=== PATIENT | male | born 1965 | race Caucasian/White ===

== ENCOUNTER 2024-11-18 14:56 | Emergency (ER) | payer MEDICAID, SELFPAY ==
[2024-11-18 15:09] VITALS: BP 154/86; PULSE 71; RESP 20; TEMP 36.7; O2SAT 95; BMI 31.8
--- NOTE | 2024-11-18 15:23 | PD.EDEAR ---
ED Ear RME/HPI General Chief complaint: Ear Stated complaint: Bug in left ear Time Seen by Provider: 11/18/24 15:17 Source: patient Arrival date/time: 11/18/24 14:56 59-year-old male with a history of type 2 diabetes, hyperlipidemia presents to the emergency room with a chief complaint of an insect in the left ear. Mode of arrival: ambulatory Limitations: no limitations Related Data Home Medications ?Medication ?Instructions ?Recorded ?Confirmed gemfibrozil 600 mg tablet (Lopid) 600 mg PO BID ##0 07/01/11 05/05/23 metformin 1,000 mg tablet 1,000 mg PO BID #0 tabs 06/08/16 05/05/23 (Glucophage) albuterol sulfate 90 mcg/actuation 2 puff inhalation Q4H PRN 05/05/23 05/05/23 aerosol inhaler Shortness Of Breath Or Wheezing empagliflozin 25 mg tablet 25 mg PO QDAY 05/05/23 05/05/23 (Jardiance) hydrocodone 10 mg-acetaminophen 1 tab PO TID PRN Pain 05/05/23 05/05/23 325 mg tablet losartan 50 mg tablet 50 mg PO QDAY 05/05/23 05/05/23 omeprazole 40 mg capsule,delayed 40 mg PO QDAY 05/05/23 05/05/23 release sitagliptin phosphate 100 mg 100 mg PO QDAY 05/05/23 05/05/23 tablet (Januvia) Previous Rx's ?Medication ?Instructions ?Recorded ofloxacin 0.3 % ear drops 10 drp otic (ear) QDAY 7 days #10 11/18/24 mL Allergies Allergy/AdvReac Type Severity Reaction Status Date / Time Penicillins Allergy Intermediate Hives Verified 11/18/24 15:00 Review of Systems Review of Systems Systems Reviewed: All systems reviewed, normal except as documented Constitutional Constitutional: Reports system reviewed and no additional complaints, except as documented, Denies fatigue, Denies fever(s), Denies headache(s) and Denies weakness Eyes Eyes: Reports system reviewed and no additional complaints, except as documented, Denies blurry vision and Denies change in vision ENT Ears, Nose, Mouth, and Throat: Reports system reviewed and no additional complaints, except as documented, Denies otalgia, Denies headache(s), Denies nasal congestion, Denies throat swelling and Denies vertigo Cardiovascular Cardiovascular: Reports system reviewed and no additional complaints, except as documented, Denies chest pain, Denies dyspnea and Denies dyspnea on exertion Respiratory Respiratory: Reports system reviewed and no additional complaints, except as documented, Denies chest congestion, Denies cough, Denies dyspnea, Denies dyspnea on exertion and Denies wheezing Gastrointestinal Gastrointestinal: Reports system reviewed and no additional complaints, except as documented, Denies abdominal pain, Denies cramping, Denies nausea and Denies vomiting Genitourinary Genitourinary: Reports system reviewed and no additional complaints, except as documented, Denies dysuria and Denies hematuria Musculoskeletal Musculoskeletal: Reports system reviewed and no additional complaints, except as documented and Denies back pain Integumentary/Breasts Skin/Breast: Reports system reviewed and no additional complaints, except as documented and Denies wounds Neurologic Neurologic: Reports system reviewed and no additional complaints, except as documented, Denies confusion, Denies headache(s), Denies lack of coordination, Denies vertigo and Denies weakness Psychiatric Psychiatric: Reports system reviewed and no additional complaints, except as documented, Denies anxiety, Denies confusion, Denies depression, Denies paranoia, Denies suicidal ideation and Denies tactile hallucinations Endocrine Endocrine: Reports system reviewed and no additional complaints, except as documented and Denies fatigue Hematologic/Lymphatic Hematologic/Lymphatic: Reports system reviewed and no additional complaints, except as documented and Denies lymphadenopathy Allergic/Immunologic Allergic/Immunologic: Reports system reviewed and no additional complaints, except as documented, Denies throat swelling, Denies urticaria and Denies wheezing Past Medical History Past Medical History NEUROLOGIC: Negative Neurological Disorders or Seizures CARDIAC: Positive Cardiac Disorders, Angina, Hypercholesterolemia and Hypertension; Negative Congestive Heart Failure RESPIRATORY: Negative Chronic Obstructive Pulmonary Disease (COPD) GASTROINTESTINAL: Positive Gastrointestinal Disorders and Gastroesophageal Reflux Disease; Negative Hepatitis or Colorectal Cancer GENITOURINARY: Negative Genitourinary Disorders, Renal Disease or Prostate Cancer REPRODUCTIVE: Negative Testicular Cancer MUSCULOSKELETAL: Positive Musculoskeletal Disorders, Arthritis and Degenerative Joint Disease; Negative Bone Cancer ENT: 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) ENDOCRINE: Positive Endocrine Disorders and Diabetes Mellitus Type 2; Negative Diabetes Mellitus Type 1 HEMATOLOGIC: Negative Blood Disorders OTHER HISTORY: Positive Chicken Pox; Negative Hospitalization, Autoimmune Disease, Down Syndrome, Developmental Delay, Shingles, Falls, Blood Transfusions, Blood Transfusion Reaction, Anesthesia Reactions, MRSA, VRSA, Vancomycin-Resistant Enterococci, Clostridium Difficile, Colorectal Cancer, Lung Cancer, Prostate Cancer or Testicular Cancer Family History FAMILY HISTORY: Positive Family Cancer; Negative Family Psychiatric Problems, Family Respiratory Disorders, Family Cardiac Disorders, Family Gastrointestinal Problems, Family Surgery or Family Anesthesia Reaction Surgical History SURGICAL: Positive Abdominal Surgery; Negative Cardiac Surgery, Endocrine Surgery, Ear Surgery, Nephrectomy, Transurethral Resection, Neurologic Surgery, Brain Shunt or Vasectomy Social History SMOKING STATUS: Current every day smoker SUBSTANCE USE: marijuana ED Exam General Limitations: Present no limitations General appearance: Present alert and in no apparent distress Head Head exam: Present atraumatic Eye Eye exam: Present normal appearance, PERRL and EOMI ENT ENT exam: Present normal exam, normal oropharynx and mucous membranes moist Expanded ENT Exam TM/Canal exam: Left TM: foreign body (There is a cockroach in his left ear) Neck Neck exam: Present normal inspection, full ROM and trachea midline Chest Chest inspection: Present normal inspection and symmetric chest wall rise Respiratory Respiratory exam: Present normal lung sounds bilaterally Cardiovascular Cardiovascular exam: Present regular rate, normal rhythm and normal heart sounds Abdominal Exam Abdominal exam: Present soft and normal bowel sounds Extremities Exam Extremities exam: Present normal inspection and full ROM Back Exam Back exam: Present normal inspection and full ROM Neurological Exam Neurological exam: Present alert, oriented X3 and CN II-XII intact Psychiatric Psychiatric exam: Present normal affect and normal mood Skin Skin exam: Present warm, dry, intact and normal color Course Quality Measures none Vital Signs Vital signs: Vital Signs Temperature 98.1 F 11/18/24 15:09 Pulse Rate 71 11/18/24 15:09 Respiratory Rate 20 11/18/24 15:09 Blood Pressure 154/86 H 11/18/24 15:09 Pulse Oximetry (%) 95 11/18/24 15:09 Oxygen Delivery Method Room Air 11/18/24 15:09 O2 saturation 95% within normal limit Ear MDM Narrative MDM Narrative:: 59-year-old male with a history of type 2 diabetes, hyperlipidemia presents to the emergency room with a chief complaint of an insect in the left ear. Patient is hemodynamically stable and in no apparent distress Physical examination shows a cockroach inside the left ear canal. It is pushed up against the tympanic membrane. Patient states he drowned the insect at home with peroxide and was attempting to remove it with a Q-tip that was unsuccessful and causing him a lot of pain. Multiple attempts were used to try to remove this insect without causing the patient much pain. The ear was irrigated and unsuccessful. Small alligator forceps were used to try and grab the insect and remove but the patient was having tenderness to the external ear canal which made the process very difficult. Lidocaine was used to numb up the ear and another attempt was used with alligator forceps which was unsuccessful. Patient was educated that he needs to follow-up with his primary care provider and get a referral to an ENT specialist. Patient was educated return to the emergency room for any evidence of worsening signs or symptoms Patient data External records reviewed:: [facility] previous records Clinical information provided by:: patient Social determinants that could affect healthcare access:: none Patient has the following chronic illnesses:: No chronic illness How is presenting disease/condition affected by chronic disease/condition?: no chronic disease Evaluation data The following diagnostics were reviewed and interpreted by me:: lab results and radiology exam(s) Lab and/or radiology exams considered but not ordered:: Labs and radiology exams considered and ordered Interpretation Summary: N/A Medications / Prescriptions Medications or Prescriptions considered but not ordered:: Rx given Medication administrations:: Rx given Consultations Consultation(s) initiated? (list below): No Diagnosis Ear Differential Diagnosis: otitis externa, otitis media, foreign body in ear and cerumen impaction Most likely diagnosis given after review of the tests above:: Foreign body in ear Admission Indicated Admission indicated?: not indicated Admission Request Was there a request for admission?: No Disposition Plan Disposition Plan: Discharge Discharge Attestation Discharge Attestation: The patient and all family members were given an opportunity to ask questions and understood the discharge instructions. Discharge instructions specifically effects, indications for sooner follow up or return to the emergency department, and the expected course of current diagnosis. Patient condition: Stable Discharge Plan Plan Patient Disposition: HOME (Self Care) Disposition Comment: Stable Prescriptions/Referrals Prescriptions/Med Rec: New ofloxacin 0.3 % drops 10 drp otic (ear) QDAY 7 Days Qty: 10 0RF No Action gemfibrozil [Lopid] 600 MG tablet 600 mg PO BID Qty: 0 metformin [Glucophage] 1,000 MG tablet 1,000 mg PO BID Qty: 0 losartan 50 mg tablet 50 mg PO QDAY Patient Comments: TAKE ONE TABLET BY MOUTH EVERY DAY FOR BLOOD PRESSURE hydrocodone-acetaminophen 10-325 mg tablet 1 tab PO TID PRN (Reason: Pain) Patient Comments: TAKE ONE TABLET BY MOUTH THREE TIMES DAILY NEEDED FOR PAIN omeprazole 40 mg capsule,delayed release(DR/EC) 40 mg PO QDAY Patient Comments: TAKE ONE CAPSULE BY MOUTH EVERY MORNING 30 MINUTES BEFORE BREAKFAST GASTRIC ACIDITY AND HEARTBURN albuterol sulfate 90 mcg/actuation HFA aerosol inhaler 2 puff INHALATION Q4H PRN (Reason: Shortness Of Breath Or Wheezing) Patient Comments: INHALE TWO PUFFS BY MOUTH EVERY 4 HOURS NEEDED FOR BREATHING AND SHORTNESS OF BREATH Januvia 100 mg tablet 100 mg PO QDAY Patient Comments: TAKE ONE TABLET BY MOUTH EVERY DAY FOR DIABETES Jardiance 25 mg tablet 25 mg PO QDAY Patient Comments: TAKE ONE TABLET BY MOUTH EVERY DAY FOR DIABETES Problem List Clinical Impression: Acute foreign body of left ear, Otitis externa Patient/Caregiver Discharge Instructions Education Materials: ED EAR CANAL Foreign Body, ED External Ear Infection (Adult) Additional Instructions: Please follow-up with your primary care provider in the next 24 to 48 hours. You have a insect in your left ear. It is pushed up very close to your tympanic membrane. Multiple attempts were tried to remove the insect that were unsuccessful. Please follow-up with your primary care provider as a referral to an ENT will be needed to remove this. I sent over antibiotics to your pharmacy please pick them up and take them as indicated to prevent any infection in your ear For any evidence of worsening signs or symptoms return to the emergency room immediately Print Language: Norwegian Stand Alone Forms: Monica Award Info., Patient Portal Info Letter PA/ALBERTO Supervising Physician PA/ALBERTO Supervising Physician: Dr. Mosher
== END 2024-11-18 17:13 | disposition home or self-care (01) ==
PROVIDERS: Emergency Provider Emergency Medicine
DX: T16.2XXA Foreign body in left ear, initial encounter (principal); H60.92 Unspecified otitis externa, left ear; W44.F4XA Insect entering into or through a natural orifice, initial encounter; E11.9 Type 2 diabetes mellitus without complications; E78.5 Hyperlipidemia, unspecified; F17.210 Nicotine dependence, cigarettes, uncomplicated; Y92.009 Unspecified place in unspecified non-institutional (private) residence as the place of occurrence of the external cause
CPT/HCPCS: 99283

== ENCOUNTER 2024-12-01 08:33 | Emergency (ER) | payer MEDICAID, SELFPAY ==
[2024-12-01 08:47] VITALS: BP 143/84; PULSE 72; RESP 18; TEMP 36.9; O2SAT 95
--- NOTE | 2024-12-01 08:53 | PD.EDADULT ---
ED General RME/HPI General Chief complaint: Ear Stated complaint: BUG IN EAR Time Seen by Provider: 12/01/24 08:52 Arrival date/time: 12/01/24 08:33 CC: Foreign object sensation in left ear canal HPI patient was seen here 1 week ago for cockroach in his ear. ER staff were unable to get the insect out of the ear, patient then went saw PCP who failed to get out of the ear and has a follow-up with nuclear monitoring technician in 2 weeks however the patient is annoyed that it is still in there and wants to try again. Patient denies fever chills loss of hearing nausea vomiting headache or generalized weakness. Related Data Home Medications ?Medication ?Instructions ?Recorded ?Confirmed gemfibrozil 600 mg tablet (Lopid) 600 mg PO BID ##0 07/01/11 05/05/23 metformin 1,000 mg tablet 1,000 mg PO BID #0 tabs 06/08/16 05/05/23 (Glucophage) albuterol sulfate 90 mcg/actuation 2 puff inhalation Q4H PRN 05/05/23 05/05/23 aerosol inhaler Shortness Of Breath Or Wheezing empagliflozin 25 mg tablet 25 mg PO QDAY 05/05/23 05/05/23 (Jardiance) hydrocodone 10 mg-acetaminophen 1 tab PO TID PRN Pain 05/05/23 05/05/23 325 mg tablet losartan 50 mg tablet 50 mg PO QDAY 05/05/23 05/05/23 omeprazole 40 mg capsule,delayed 40 mg PO QDAY 05/05/23 05/05/23 release sitagliptin phosphate 100 mg 100 mg PO QDAY 05/05/23 05/05/23 tablet (Januvia) Allergies Allergy/AdvReac Type Severity Reaction Status Date / Time Penicillins Allergy Intermediate Hives Verified 12/01/24 08:36 Review of Systems Review of Systems Narrative Review of Systems: GEN: No fever, no chills, no weight loss EYES: No discharge, no visual changes, no pain HEENT: No ear pain, no congestion, no sore throat PULM: No shortness of breath, no cough, no congestion CV: No chest pain, no dyspnea on exertion, no palpitations GI: No nausea, no vomiting, no diarrhea, no pain, no constipation : No frequency, no urgency, no dysuria MUSC/SKEL: No joint pain, no back pain SKIN: No rash PSYCH: No hallucinations, no depression HEME/LYMPH: No easy bleeding or bruising tendencies NEURO: No weakness, no headache Past Medical History Past Medical History NEUROLOGIC: Negative Neurological Disorders or Seizures CARDIAC: Positive Cardiac Disorders, Angina, Hypercholesterolemia and Hypertension; Negative Congestive Heart Failure RESPIRATORY: Negative Chronic Obstructive Pulmonary Disease (COPD) GASTROINTESTINAL: Positive Gastrointestinal Disorders and Gastroesophageal Reflux Disease; Negative Hepatitis or Colorectal Cancer GENITOURINARY: Negative Genitourinary Disorders, Renal Disease or Prostate Cancer REPRODUCTIVE: Negative Testicular Cancer MUSCULOSKELETAL: Positive Musculoskeletal Disorders, Arthritis and Degenerative Joint Disease; Negative Bone Cancer ENT: 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) ENDOCRINE: Positive Endocrine Disorders and Diabetes Mellitus Type 2; Negative Diabetes Mellitus Type 1 HEMATOLOGIC: Negative Blood Disorders OTHER HISTORY: Positive Chicken Pox; Negative Hospitalization, Autoimmune Disease, Down Syndrome, Developmental Delay, Shingles, Falls, Blood Transfusions, Blood Transfusion Reaction, Anesthesia Reactions, MRSA, VRSA, Vancomycin-Resistant Enterococci, Clostridium Difficile, Colorectal Cancer, Lung Cancer, Prostate Cancer or Testicular Cancer Family History FAMILY HISTORY: Positive Family Cancer; Negative Family Psychiatric Problems, Family Respiratory Disorders, Family Cardiac Disorders, Family Gastrointestinal Problems, Family Surgery or Family Anesthesia Reaction Surgical History SURGICAL: Positive Abdominal Surgery; Negative Cardiac Surgery, Endocrine Surgery, Ear Surgery, Nephrectomy, Transurethral Resection, Neurologic Surgery, Brain Shunt or Vasectomy Social History SMOKING STATUS: Current every day smoker SUBSTANCE USE: marijuana ED Exam Narrative Physical exam: [General: In mild discomfort but not in any acute distress Head normocephalic HEENT: Ears: Right EAC is clean dry and intact, TM is visible no erythema or edema. Left EAC has foreign object versus cyst back in the EAC, TM is not visible, there is no surrounding erythema or edema in the EAC canal, no exudate or discharge. Blast mass obscuring the TM. All other subsystems of HEENT are within acceptable limits Neck is supple nontender Chest equal chest rise nontender to palpation Respiratory: Clear to auscultation no wheezes crackles or rubs CV: Rate rhythm is regular no murmurs rubs or clicks Abdomen is distended secondary to body habitus soft nontender no masses positive bowel sounds all 4 quadrants Back: No CVA tenderness no spinous process tenderness from cervical spine thoracic and lumbar spine Skin: Intact no petechiae rash induration ulceration or crepitus Extremities: Moving all extremity against resistance cap refill less than 2 seconds neurosensory intact Neuro: Awake alert oriented x3 Glascow coma 15 no focal deficits] Course Quality Measures none Orders Category Date Time Status Miscellaneous Nursing Order NOW Care 12/01/24 08:53 Active Vital Signs Vital signs: Vital Signs Temperature 98.5 F 12/01/24 08:47 Pulse Rate 72 12/01/24 08:47 Respiratory Rate 18 12/01/24 08:47 Blood Pressure 143/84 H 12/01/24 08:47 Pulse Oximetry (%) 95 12/01/24 08:47 Oxygen Delivery Method Room Air 12/01/24 08:47 MDM Patient data External records reviewed:: [facility] previous records Clinical information provided by:: patient Social determinants that could affect healthcare access:: none Patient has the following chronic illnesses:: None How is presenting disease/condition affected by chronic disease/condition?: uneffected by Evaluation data The following diagnostics were reviewed and interpreted by me:: other (specify) (None) Lab and/or radiology exams considered but not ordered:: None Interpretation Summary: After minimal flushing with warm water did insect was flushed from the EAC. Reexamination of the EAC show is clear, TM is not erythematous edematous there is no opening or rupture of the TM. Patient feels immediate relief. Medications Medications considered but not ordered:: None Medication administrations:: None Consultations Consultation(s) initiated? (list below): No Diagnosis Differential Diagnosis ED Complaint MDM: Ruptured TM otitis media otitis externa Most likely diagnosis given after review of the tests above:: Insect in the EAC Admission Indicated Admission indicated?: not indicated Explain why admission is indicated or not indicated:: Stable for outpatient follow-up Admission Request Was there a request for admission?: No Disposition Plan Disposition Plan: Discharge Discharge Attestation Discharge Attestation: The patient and all family members were given an opportunity to ask questions and understood the discharge instructions. Discharge instructions specifically effects, indications for sooner follow up or return to the emergency department, and the expected course of current diagnosis. Patient condition: Stable Medical Decision Making Differential Diagnosis Differential Diagnosis: Ruptured TM otitis media otitis externa Discharge Plan Plan Patient Disposition: HOME (Self Care) Patient condition on transfer: Stable Prescriptions/Referrals Prescriptions/Med Rec: No Action gemfibrozil [Lopid] 600 MG tablet 600 mg PO BID Qty: 0 metformin [Glucophage] 1,000 MG tablet 1,000 mg PO BID Qty: 0 losartan 50 mg tablet 50 mg PO QDAY Patient Comments: TAKE ONE TABLET BY MOUTH EVERY DAY FOR BLOOD PRESSURE hydrocodone-acetaminophen 10-325 mg tablet 1 tab PO TID PRN (Reason: Pain) Patient Comments: TAKE ONE TABLET BY MOUTH THREE TIMES DAILY NEEDED FOR PAIN omeprazole 40 mg capsule,delayed release(DR/EC) 40 mg PO QDAY Patient Comments: TAKE ONE CAPSULE BY MOUTH EVERY MORNING 30 MINUTES BEFORE BREAKFAST GASTRIC ACIDITY AND HEARTBURN albuterol sulfate 90 mcg/actuation HFA aerosol inhaler 2 puff INHALATION Q4H PRN (Reason: Shortness Of Breath Or Wheezing) Patient Comments: INHALE TWO PUFFS BY MOUTH EVERY 4 HOURS NEEDED FOR BREATHING AND SHORTNESS OF BREATH Januvia 100 mg tablet 100 mg PO QDAY Patient Comments: TAKE ONE TABLET BY MOUTH EVERY DAY FOR DIABETES Jardiance 25 mg tablet 25 mg PO QDAY Patient Comments: TAKE ONE TABLET BY MOUTH EVERY DAY FOR DIABETES Problem List Clinical Impression: Foreign body in ear Patient/Caregiver Discharge Instructions Education Materials: ED EAR CANAL Foreign Body Additional Instructions: Keep ear canals clean and dry follow-up with your primary care provider if there is worsening of symptoms return the emergency room for reevaluation. Print Language: Macanese Stand Alone Forms: Monica Award Info., Work/School Release, Patient Portal Info Letter PA/SENIOR MERCHANDISER Supervising Physician PA/SENIOR MERCHANDISER Supervising Physician: Gerardo Berrios ENP
== END 2024-12-01 09:44 | disposition home or self-care (01) ==
LOC: SERX 09:36
PROVIDERS: Emergency Provider Emergency Medicine
DX: T16.2XXA Foreign body in left ear, initial encounter (principal)
CPT/HCPCS: 69200; 99283

== ENCOUNTER 2025-05-14 14:16 | Emergency (ER) | payer MEDICAID, SELFPAY ==
[2025-05-14 14:18] VITALS: BMI 32.1
[2025-05-14 14:33] VITALS: BP 146/84; PULSE 74; RESP 19; TEMP 36.7; O2SAT 95
--- NOTE | 2025-05-14 15:03 | XR_ITS ---
Examination: CT abdomen with intravenous contrast CT pelvis with intravenous contrast 2-D coronal reconstructions 2-D sagittal reconstructions Date and time of exam:May 14, 2025, 1609 hrs., Comparison September 05, 2022 Indications: Constipation abdominal pain and bloating beginning 4 days ago.. CTDI: vol (mGy) 11.4. DLP: (mGycm) 682. Technique: Multiple axial sections of the abdomen and pelvis have been obtained. 64 slice high-resolution scanner used. 3 mm axial sections have been obtained, post intravenous injection 60 cc [id number]. 2-D sagittal, coronal reconstructions obtained. Low dose protocols were performed. One or more of the following dose reduction techniques were used; automated exposure control, adjustment of the mA and/or KV according to patient size, use of iterative reconstruction technique. Findings: Liver is irregular in contour Fatty infiltration throughout the liver. Significant hepatosplenomegaly. Absent gallbladder. No extrahepatic biliary tract dilatation. No pancreatic mass. No renal or ureteral calculi, no hydronephrosis. Heavy abdominal aortic calcification no aneurysmal dilatation. Normal appendix. No bowel obstruction. Abundant stool in the colon especially rectosigmoid, no diverticulitis or bowel obstruction Normal seminal vesicles Transverse prostate dimension 5.1 cm. Axial image 209 demonstrates 16 mm enhancing nodule anterior right prostate Urinary bladder is intact Moderate osteopenia Impression: Significant hepatosplenomegaly, primary hepatocellular disease Constipation, abundant stool throughout the colon especially rectosigmoid. Normal appendix Prostatomegaly, transverse dimension 5.1 cm 16 mm enhancing nodule anterior right prostate, recommend correlation with PSA and follow-up transrectal prostate sonography
--- NOTE | 2025-05-14 15:20 | PD.EDRME ---
Rapid Medical Screening Exam RME Arrival date/time: 05/14/25 14:16 Chief Complaint: Abdominal Pain Time Seen by Provider: 05/14/25 15:03 Vital signs: Vital Signs Temperature 98.0 F 05/14/25 14:33 Pulse Rate 74 05/14/25 14:33 Respiratory Rate 19 05/14/25 14:33 Blood Pressure 146/84 H 05/14/25 14:33 Pulse Oximetry (%) 95 05/14/25 14:33 Oxygen Delivery Method Room Air 05/14/25 14:33 Vital signs reviewed by provider: Yes RME Narrative: Patient is a 60-year-old male with medical history notable for chronic pain, hypertension, diabetes, GERD this in the emergency department with concerns for abdominal distention for the last 3 days, and decreased bowel movements. Patient has had multiple surgeries to his belly, is passing gas usually is regular however has not had a significant bowel movement for the last few days. Patient states that every time he drinks water he feels nauseous. Denies fevers, dysuria melena hematochezia hematuria recent travel, sick contacts. Denies drugs and alcohol. Patient does smoke.
--- NOTE | 2025-05-14 15:31 | EDNOTE_ITS ---
ED Abdominal Pain RME/HPI General Chief Complaint: Abdominal Pain Stated complaint: ABD PAIN/INDIGESTON X 4 DAYS, SENT BY LENA Time seen by provider: 05/14/25 15:03 Arrival date/time: 05/14/25 14:16 Limitations: no limitations RME / HPI RME / HPI narrative: Patient is a 60-year-old male with medical history notable for chronic pain, hypertension, diabetes, GERD this in the emergency department with concerns for abdominal distention for the last 3 days, and decreased bowel movements. Patient has had multiple surgeries to his belly, is passing gas usually is regular however has not had a significant bowel movement for the last few days. Patient states that every time he drinks water he feels nauseous. Denies fevers, dysuria melena hematochezia hematuria recent travel, sick contacts. Denies drugs and alcohol. Patient does smoke. DR. UCHE ROBERTS ED EVALUATION 60 year old male with history of hypertension, diabetes, GERD, s/p cholecystectomy presents to the ED for evaluation of abdominal pain and bloating beginning 4 days ago. States pain is located diffusely but most sever over epigastric region, rating as moderate. Accompanied by nausea and small bowel movements; last bowel movement occurring this am. Last normal bowel movement 4 days ago. States at baseline he drinks Omeprazole which normally provides relief when feeling bloated. However, has noticed in the last 4 days the Omeprazole is not providing relief. Additionally reports he feels the need to belch and attempted to drink soda with no improvement. Denies vomiting or diarrhea. Denies fevers, chills, chest pain, cough, shortness of breath, or other associated symptoms. Related Data Home Medications ?Medication ?Instructions ?Recorded ?Confirmed gemfibrozil 600 mg tablet (Lopid) 600 mg PO BID ##0 05/05/23 metformin 1,000 mg tablet 1,000 mg PO BID #0 tabs 05/2205/05/23 (Glucophage) albuterol sulfate 90 mcg/actuation 2 puff inhalation Q 4H PRN 05/05/23 05/05/23 aerosol inhaler Shortness Of Breath Or Wheez ing empagliflozin 25 mg tablet 25 mg PO QDAY 05/05/2304/21 (Jardiance) hydrocodone 10 mg-acetaminophen 1 tab PO TID PRN Pain 05/05/23 05/05/23 325 mg tablet losartan 50 mg tablet 50 mg PO QDAY 05/05/2305/05 omeprazole 40 mg capsule,delayed 40 mg PO QDAY 3 05/05/23 release sitagliptin phosphate 100 mg 100 mg PO QDAY 05/05/23 0 05/05/23 tablet (Januvia) Allergies Allergy/AdvReac Type Severity Reaction Status Date / Time Penicillins Allergy Severe Hives Verified 05/14/25 14:19 Review of Systems Review of Systems Systems Reviewed: All systems reviewed, normal except as documented Past Medical History Past Medical History CARDIAC: Positive Cardiac Disorders, Angina, Hypercholesterolemia and Hypertension GASTROINTESTINAL: Positive Gastrointestinal Disorders and Gastroesophageal Reflux Disease MUSCULOSKELETAL: Positive Musculoskeletal Disorders, Arthritis and Degenerative Joint Disease ENT: 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) ENDOCRINE: Positive Endocrine Disorders and Diabetes Mellitus Type 2 OTHER HISTORY: Positive Chicken Pox Family History FAMILY HISTORY: Positive Family Cancer Surgical History SURGICAL: Positive Abdominal Surgery Social History SMOKING STATUS: Current every day smoker SUBSTANCE USE: marijuana ED Exam General Limitations: Present no limitations General appearance: Present alert and in no apparent distress Head Head exam: Present atraumatic, normocephalic and normal inspection Eye Eye exam: Present normal appearance, PERRL and EOMI ENT ENT exam: Present normal exam, normal oropharynx and mucous membranes moist Neck Neck exam: Present normal inspection, full ROM and trachea midline Chest Chest inspection: Present normal inspection and symmetric chest wall rise Respiratory Respiratory exam: Present normal lung sounds bilaterally Cardiovascular Cardiovascular exam: Present regular rate, normal rhythm and normal heart sounds Abdominal Exam Abdominal exam: Present soft, distention (with tympany ), tenderness (moderate RUQ TTP with positive Godinez's sign, no rebound, no guarding ) and normal bowel sounds Extremities Exam Extremities exam: Present normal inspection and full ROM Back Exam Back exam: Present normal inspection and full ROM Neurological Exam Neurological exam: Present alert, oriented X3 and CN II-XII intact Psychiatric Psychiatric exam: Present normal affect and normal mood Skin Skin exam: Present warm, dry, intact and normal color Course Quality Measures none Orders Category Date Time Status CT Screening NOW Care 05/14/25 15:04 Active 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9% 500 ml [Ns] 500 ml Med 05/14/25 15:41 Discontinued IV 999 mls/hr Vital Signs Vital signs: Vital Signs Temperature 98.0 F 05/14/25 14:33 Pulse Rate 74 05/14/25 14:33 Respiratory Rate 19 05/14/25 14:33 Blood Pressure 146/84 H 05/14/25 14:33 Pulse Oximetry (%) 95 05/14/25 14:33 Oxygen Delivery Method Room Air 05/14/25 14:33 Pulse ox is 95% on room air which is adequate. Abdominal Pain MDM MDM Narrative MDM Narrative:: Vanessa Sahu am scribing for and in the presence of Dr. Pinedo. Patient data External records reviewed:: [facility] previous records (I reviewed ED visit on 12/01/2024 ) Clinical information provided by:: patient Social determinants that could affect healthcare access:: none Patient has the following chronic illnesses:: hypertension, diabetes, GERD, s/p cholecystectomy in 1990 How is presenting disease/condition affected by chronic disease/condition?: exacerbated by Evaluation data The following diagnostics were reviewed and interpreted by me:: lab results and radiology exam(s) Lab and/or radiology exams considered but not ordered:: None Interpretation Summary: Ordering Physician: Georgiana Murray MD Date of Service: 05/14/25 Procedure(s): CT abdomen pelvis w con Accession Number(s): [id number] cc: Joby Lewis; Farrukh Iyer MD; Georgiana Murray MD~ Examination: CT abdomen with intravenous contrast CT pelvis with intravenous contrast 2-D coronal reconstructions 2-D sagittal reconstructions Date and time of exam:May 14, 2025, 1609 hrs., Comparison September 05, 2022 Indications: Constipation abdominal pain and bloating beginning 4 days ago.. CTDI: vol (mGy) 11.4. DLP: (mGycm) 682. Technique: Multiple axial sections of the abdomen and pelvis have been obtained. 64 slice high-resolution scanner used. 3 mm axial sections have been obtained, post intravenous injection 60 cc [id number]. 2-D sagittal, coronal reconstructions obtained. Low dose protocols were performed. One or more of the following dose reduction techniques were used; automated exposure control, adjustment of the mA and/or KV according to patient size, use of iterative reconstruction technique. Findings: Liver is irregular in contour Fatty infiltration throughout the liver. Significant hepatosplenomegaly. Absent gallbladder. No extrahepatic biliary tract dilatation. No pancreatic mass. No renal or ureteral calculi, no hydronephrosis. Heavy abdominal aortic calcification no aneurysmal dilatation. Normal appendix. No bowel obstruction. Abundant stool in the colon especially rectosigmoid, no diverticulitis or bowel obstruction Normal seminal vesicles Transverse prostate dimension 5.1 cm. Axial image 209 demonstrates 16 mm enhancing nodule anterior right prostate Urinary bladder is intact Moderate osteopenia Impression: Significant hepatosplenomegaly, primary hepatocellular disease Constipation, abundant stool throughout the colon especially rectosigmoid. Normal appendix Prostatomegaly, transverse dimension 5.1 cm 16 mm enhancing nodule anterior right prostate, recommend correlation with PSA and follow-up transrectal prostate sonography Dictated By: Farrukh Iyer MD Signed By: <Electronically signed by Farrukh Iyer MD in OV> 05/14/25 1625 Medications / Prescriptions Medications or Prescriptions considered but not ordered:: None Medication administrations:: Medication Administration History Hydromorphone HCl (Hydromorphone Inj 2 Mg/Ml Vial) 0.5 mg IVP Q30MIN PRN PRN Reason: PAIN Stop: 05/19/25 15:44 Last Admin: 05/14/25 16:23 Dose: 0.5 mg Documented By: GM Discontinued Medications Sodium Chloride (Ns) 500 mls @ 999 mls/hr IV .Q31M ONE Stop: 05/14/25 16:11 Last Infusion: 05/14/25 16:59 Dose: Infused Documented By: Admin: 05/14/25 16:25 Dose: 999 mls/hr Documented By: GM See above Consultations Consultation(s) initiated? (list below): No Diagnosis Differential diagnosis abdominal pain: abdominal pain, constipation and small bowel obstruction Most likely diagnosis given after review of the tests above:: Abdominal pain Constipation Admission Indicated Admission indicated?: not indicated Admission Request Was there a request for admission?: No Disposition Plan Disposition Plan: Discharge Discharge Attestation Discharge Attestation: The patient and all family members were given an opportunity to ask questions and understood the discharge instructions. Discharge instructions specifically effects, indications for sooner follow up or return to the emergency department, and the expected course of current diagnosis. Patient condition: Stable Discharge Plan Plan Patient Disposition: HOME (Self Care) Prescriptions/Referrals Prescriptions/Med Rec: No Action gemfibrozil [Lopid] 600 MG tablet 600 mg PO BID Qty: 0 metformin [Glucophage] 1,000 MG tablet 1,000 mg PO BID Qty: 0 losartan 50 mg tablet 50 mg PO QDAY Patient Comments: TAKE ONE TABLET BY MOUTH EVERY DAY FOR BLOOD PRESSURE hydrocodone-acetaminophen 10-325 mg tablet 1 tab PO TID PRN (Reason: Pain) Patient Comments: TAKE ONE TABLET BY MOUTH THREE TIMES DAILY NEEDED FOR PAIN omeprazole 40 mg capsule,delayed release(DR/EC) 40 mg PO QDAY Patient Comments: TAKE ONE CAPSULE BY MOUTH EVERY MORNING 30 MINUTES BEFORE BREAKFAST GASTRIC ACIDITY AND HEARTBURN albuterol sulfate 90 mcg/actuation HFA aerosol inhaler 2 puff INHALATION Q4H PRN (Reason: Shortness Of Breath Or Wheezing) Patient Comments: INHALE TWO PUFFS BY MOUTH EVERY 4 HOURS NEEDED FOR BREATHING AND SHORTNESS OF BREATH Januvia 100 mg tablet 100 mg PO QDAY Patient Comments: TAKE ONE TABLET BY MOUTH EVERY DAY FOR DIABETES Jardiance 25 mg tablet 25 mg PO QDAY Patient Comments: TAKE ONE TABLET BY MOUTH EVERY DAY FOR DIABETES Referrals: Joby Lewis FNP [Primary Care Provider] - In 1 week Problem List Clinical Impression: Constipation, Abdominal pain Patient/Caregiver Discharge Instructions Education Materials: Eating a High-Fiber Diet, ED Constipation (Adult) Additional Instructions: Follow-up with your primary care doctor in 3 to 5 days for recheck. You can return to the emergency department sooner if symptoms worsen or if you notice any new, concerning issues. Print Language: Citizen Of [place] Stand Alone Forms: Monica [place] Info., Patient Portal Info Letter
[2025-05-14 15:34] VITALS: BP 148/98; PULSE 72; RESP 19; TEMP 37.1; O2SAT 95
[2025-05-14 15:34] LABS: Basophils # (Auto) 0.1 Thou/mm3 (0.0-0.2); Basophils % (Auto) 1 % (0-2.5); Eosinophils # (Auto) 0.3 Thou/mm3 (0.0-0.5); Eosinophils % (Auto) 3 % (0-10); Hematocrit 48.5 % (41.0-53.0); Hemoglobin 17.0 g/dL (13.5-16.0); Immature Granulocytes Auto 0.04 Thou/mm3 (0.00-0.00); Lymphocytes # (Auto) 2.3 Thou/mm3 (1.0-4.8); Lymphocytes % (Auto) 24 % (10-50); Mean Corpuscular HGB Conc 35.1 g/dl (31.0-37.0); Mean Corpuscular Hemoglobin 30.7 pg (25.0-35.0); Mean Corpuscular Volume 88 fL (80-100); Monocytes # (Auto) 0.5 Thou/mm3 (0.0-0.8); Monocytes % (Auto) 5 % (0-12); Neutrophils # (Auto) 6.3 Thou/mm3 (1.8-7.7); Neutrophils % (Auto) 67 % (37-80); Nucleated Red Blood Cell # 0.00 Thou/mm3 (0.00-0.00); Nucleated Red Blood Cell % 0 /100 WBC (0); Platelet Count 257 Thou/mm3 (140-440); RDW Standard Deviation 42.3 fL (35.1-43.9); Red Blood Count 5.54 Miln/mm3 (4.50-5.90); White Blood Count 9.4 Thou/mm3 (3.8-10.6)
--- NOTE | 2025-05-14 15:38 | XR_ITS ---
Examination: Abdomen sonogram, Limited Date and time of exam: May 14, 2025, 1710 hours INDICATIONS: Constipation and bloating beginning 4 days ago. Technique: Real-time campbell scale transabdominal sonographic images of the upper abdomen obtained. Findings: Absent gallbladder. Normal common bile duct 0.4 cm. Pancreatic head 2.6 cm Liver 20.3 cm fatty infiltration irregular contour and no focal liver lesions. Normal hepatopedal portal venous flow. Patent IVC. IMPRESSION: Normal common bile duct. Moderate hepatomegaly, fatty infiltration, primary hepatocellular disease pattern, no focal liver lesions.
[2025-05-14 15:45] VITALS: PULSE 75
[2025-05-14 15:52] LABS: Alanine Aminotransferase 26 U/L (10-49); Albumin, Serum 4.8 gm/dL (3.4-4.8); Albumin/Globulin Ratio 1.8 (1.2-2.2); Alkaline Phosphatase 76 U/L (46-116); Anion Gap 10 (7-16); Aspartate Amino Transferase 15 U/L (0-34); BUN/Creatinine Ratio 18 Ratio (12-20); Bilirubin,Total 0.4 mg/dL (0.3-1.2); Blood Urea Nitrogen 21 mg/dL (9-23); Calcium 10.7 mg/dL (8.3-10.6); Calcium (Corrected) 10.7 mg/dL (8.5-10.1); Carbon Dioxide 24.8 mMol/L (20.0-31.0); Chloride 103 mMol/L (98-107); Creatinine (Component) 1.2 mg/dL (0.6-1.3); Estimated Creatinine Clearance 79.5 mL/min (>60); Globulin 2.7 gm/dL (2.3-3.5); Glucose 323 mg/dL (74-106); Lipase 33 U/L (12-53); Osmolality,Calculated 290 (275-295); Potassium 4.4 mMol/L (3.4-5.1); Sodium 138 mMol/L (136-145); Total Protein 7.5 gm/dL (5.7-8.2); Troponin I < 0.002 ng/mL (0.0-0.045); eGFR > 60 See Note
[2025-05-14] MEDS: HYDROmorphone INJ 2 MG/ML VIAL 0.5 MG IVP (16:23)
[2025-05-14] MEDS: SODIUM CHLORIDE 0.9% 500 ML 500 ML 999 ML IV (16:25)
[2025-05-14 18:32] VITALS: BP 146/94; PULSE 64; RESP 16; TEMP 36.9; O2SAT 96
== END 2025-05-14 18:38 | disposition home or self-care (01) ==
PROVIDERS: Emergency Medicine; Emergency Provider Emergency Medicine
DX: K59.00 Constipation, unspecified (principal); I10 Essential (primary) hypertension; E11.9 Type 2 diabetes mellitus without complications; K21.9 Gastro-esophageal reflux disease without esophagitis
CPT/HCPCS: 36415; 74177; 76705; 80053; 81001; 83690; 84484; 85025; 96361; 96374; 99283; A4649; J1171; J7999; Q9967

== ENCOUNTER 2025-07-15 10:08 | Emergency (ER) | payer MEDICAID, SELFPAY ==
[2025-07-15] VITALS (7 sets, daily range): BP systolic 124–152; BP diastolic 80–88; PULSE 56–88; RESP 14–18; TEMP 36.4–36.7; O2SAT 93–95; BMI 32.8
--- NOTE | 2025-07-15 10:12 | EKG_ITS ---
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
--- NOTE | 2025-07-15 10:20 | XR_ITS ---
EXAMINATION: AP chest single view TECHNIQUE: AP portable semiupright chest single view Date and time: July 15, 2025, 1041 hours INDICATIONS: Chest pain today. FINDINGS: No significant cardiac enlargement Moderate vascular congestion including central vascular engorgement. No lobar pneumonia or pulmonary edema IMPRESSION: Moderate vascular congestion
[2025-07-15 10:50] LABS: Basophils # (Auto) 0.1 Thou/mm3 (0.0-0.2); Basophils % (Auto) 1 % (0-2.5); Eosinophils # (Auto) 0.3 Thou/mm3 (0.0-0.5); Eosinophils % (Auto) 4 % (0-10); Hematocrit 45.1 % (41.0-53.0); Hemoglobin 16.0 g/dL (13.5-16.0); Immature Granulocytes Auto 0.03 Thou/mm3 (0.00-0.00); Lymphocytes # (Auto) 1.7 Thou/mm3 (1.0-4.8); Lymphocytes % (Auto) 23 % (10-50); Mean Corpuscular HGB Conc 35.5 g/dl (31.0-37.0); Mean Corpuscular Hemoglobin 30.9 pg (25.0-35.0); Mean Corpuscular Volume 87 fL (80-100); Monocytes # (Auto) 0.4 Thou/mm3 (0.0-0.8); Monocytes % (Auto) 5 % (0-12); Neutrophils # (Auto) 4.9 Thou/mm3 (1.8-7.7); Neutrophils % (Auto) 67 % (37-80); Nucleated Red Blood Cell # 0.00 Thou/mm3 (0.00-0.00); Nucleated Red Blood Cell % 0 /100 WBC (0); Platelet Count 238 Thou/mm3 (140-440); RDW Standard Deviation 40.5 fL (35.1-43.9); Red Blood Count 5.18 Miln/mm3 (4.50-5.90); White Blood Count 7.3 Thou/mm3 (3.8-10.6)
[2025-07-15 11:06] LABS: INR 0.9 (0.9-1.3); Partial Thromboplastin Time 26.2 Seconds (22.0-36.0); Prothrombin Time 10.1 Seconds (9.0-12.2)
[2025-07-15 11:10] LABS: B-Type Natriuretic Peptide < 20 pg/mL (0-100)
[2025-07-15 11:12] LABS: Alanine Aminotransferase 27 U/L (10-49); Albumin, Serum 4.7 gm/dL (3.4-4.8); Albumin/Globulin Ratio 2.1 (1.2-2.2); Alkaline Phosphatase 72 U/L (46-116); Anion Gap 9 (7-16); Aspartate Amino Transferase 18 U/L (0-34); BUN/Creatinine Ratio 13 Ratio (12-20); Bilirubin,Total 0.5 mg/dL (0.3-1.2); Blood Urea Nitrogen 15 mg/dL (9-23); Calcium 9.1 mg/dL (8.3-10.6); Calcium (Corrected) 9.1 mg/dL (8.5-10.1); Carbon Dioxide 22.9 mMol/L (20.0-31.0); Chloride 107 mMol/L (98-107); Creatinine (Component) 1.2 mg/dL (0.6-1.3); Estimated Creatinine Clearance 80.3 mL/min (>60); Globulin 2.2 gm/dL (2.3-3.5); Glucose 383 mg/dL (74-106); Magnesium 2.2 mg/dL (1.6-2.6); Osmolality,Calculated 294 (275-295); Potassium 4.9 mMol/L (3.4-5.1); Sodium 139 mMol/L (136-145); Total Protein 6.9 gm/dL (5.7-8.2); Troponin I < 0.002 ng/mL (0.0-0.045); eGFR > 60 See Note
--- NOTE | 2025-07-15 11:24 | PD.EDCHEST ---
ED Chest Pain RME/HPI General Chief Complaint: Chest Pain Stated Complaint: chest pain x 3 days. worse today Time Seen by Provider: 07/15/25 11:26 Arrival date/time: 07/15/25 10:08 RME / HPI RME / HPI narrative: DR. TURCIOS MAIN ED EVALUATION: 60-year-old male with a past medical history of hypertension, diabetes mellitus, and GERD presents to the Emergency Department accompanied by his for left-sided chest pain radiating to his left hand. He reports the pain began earlier today and has been persistent. He takes baby aspirin daily. The pain is associated with shortness of breath, but he denies chills, sweating, nausea, vomiting, or diarrhea. He is a current smoker and reports that he rolls his own cigarettes. Denies new cough, stating his cough is baseline. No recent illness or exertional change. Related Data Home Medications ?Medication ?Instructions ?Recorded ?Confirmed gemfibrozil 600 mg tablet (Lopid) 600 mg PO BID ##0 07/01/11 05/05/23 metformin 1,000 mg tablet 1,000 mg PO BID #0 tabs 06/08/16 05/05/23 (Glucophage) albuterol sulfate 90 mcg/actuation 2 puff inhalation Q4H PRN 05/05/23 05/05/23 aerosol inhaler Shortness Of Breath Or Wheezing empagliflozin 25 mg tablet 25 mg PO QDAY 05/05/23 05/05/23 (Jardiance) hydrocodone 10 mg-acetaminophen 1 tab PO TID PRN Pain 05/05/23 05/05/23 325 mg tablet losartan 50 mg tablet 50 mg PO QDAY 05/05/23 05/05/23 omeprazole 40 mg capsule,delayed 40 mg PO QDAY 05/05/23 05/05/23 release sitagliptin phosphate 100 mg 100 mg PO QDAY 05/05/23 05/05/23 tablet (Januvia) Previous Rx's ?Medication ?Instructions ?Recorded magnesium citrate (Citrate of 300 ml PO QDAY PRN constipation 05/14/25 Magnesia oral) #296 mL Allergies Allergy/AdvReac Type Severity Reaction Status Date / Time Penicillins Allergy Severe Hives Verified 07/15/25 10:09 Review of Systems Review of Systems Systems Reviewed: All systems reviewed, normal except as documented Past Medical History Past Medical History CARDIAC: Positive Cardiac Disorders, Angina, Hypercholesterolemia and Hypertension GASTROINTESTINAL: Positive Gastrointestinal Disorders and Gastroesophageal Reflux Disease MUSCULOSKELETAL: Positive Musculoskeletal Disorders, Arthritis and Degenerative Joint Disease ENT: 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 HEENT: Normocephalic, atraumatic; right eye palsy noted; mucous membranes pink and moist NECK: Supple; no JVD NECK: Supple LUNGS: Mild wheezing in the right upper lung field HEART: Regular rate, regular rhythm; normal S1, S2; no murmurs ABDOMEN: non distended; normal BS; soft, no tenderness, no guarding, no rebound; no masses, no organomegaly, no hernia BACK: no CVA tenderness EXTREMITIES: atraumatic; no edema NEUROLOGIC: awake; alert and oriented x4; cranial nerves II-XII grossly intact; no focal sensory or motor deficits PSYCHIATRIC: appropriate mood and affect SKIN: warm, dry, normal color; no rashes Course Quality Measures none Orders Category Date Time Status Brand Designer NOW Care 07/15/25 10:20 Completed EKG (ED ONLY) *Do not use* NOW Care 07/15/25 10:12 Completed Insert IV NOW Care 07/15/25 12:15 Completed EKG (ED Only) Stat Exams 07/15/25 10:12 Draft XR chest 1V portable Stat Exams 07/15/25 10:20 Completed B-Type Natriuretic Peptide Stat Lab 07/15/25 10:42 Completed CBC Stat Lab 07/15/25 10:42 Completed Comprehensive Metabolic Panel Stat Lab 07/15/25 10:42 Completed Magnesium Stat Lab 07/15/25 10:42 Completed Partial Thromboplastin Time Stat Lab 07/15/25 10:42 Completed Prothrombin Time with INR Stat Lab 07/15/25 10:42 Completed Troponin I Stat Lab 07/15/25 10:42 Completed Troponin I Stat Lab 07/15/25 14:30 Completed Morphine* Inj Med 07/15/25 12:12 Discontinued 2 mg IVP X1 ONE Nitroglycerin [Nitrostat 1/150] Med 07/15/25 12:12 Discontinued 0.4 mg SL X1 ONE Ondansetron Inj [Zofran Inj] Med 07/15/25 12:12 Discontinued 4 mg IVP X1 ONE Vital Signs Vital signs: Vital Signs Temperature 97.8 F 07/15/25 10:12 Pulse Rate 69 07/15/25 10:12 Respiratory Rate 18 07/15/25 10:12 Blood Pressure 152/88 H 07/15/25 10:12 Pulse Oximetry (%) 95 07/15/25 10:12 Oxygen Delivery Method Room Air 07/15/25 10:12 Chest Pain MDM Narrative MDM Narrative:: I, Sandi Hawkins, am scribing for and in the presence of Dr. Turcios. Patient data External records reviewed:: [facility] previous records Clinical information provided by:: patient and spouse Social determinants that could affect healthcare access:: other (specify) (He is a current smoker and reports that he rolls his own cigarettes.) Patient has the following chronic illnesses:: Hypertension, diabetes mellitus, and GERD. How is presenting disease/condition affected by chronic disease/condition?: exacerbated by Evaluation data The following diagnostics were reviewed and interpreted by me:: lab results and radiology exam(s) Lab and/or radiology exams considered but not ordered:: none Interpretation Summary: Procedure(s): XR chest 1V portable Accession Number(s): [id number] cc: Lorena (NONA),Neri CYLINDER VALVE REPAIRER; Farrukh Iyer MD~ EXAMINATION: AP chest single view TECHNIQUE: AP portable semiupright chest single view Date and time: July 15, 2025, 1041 hours INDICATIONS: Chest pain today. FINDINGS: No significant cardiac enlargement Moderate vascular congestion including central vascular engorgement. No lobar pneumonia or pulmonary edema IMPRESSION: Moderate vascular congestion Dictated By: Farrukh Iyer MD Medications / Prescriptions Medications or Prescriptions considered but not ordered:: none Medication administrations:: Medication Administration History Discontinued Medications Morphine Sulfate (Morphine Sulf Inj 4 Mg/Ml Vial) 2 mg IVP X1 ONE Stop: 07/15/25 12:13 Last Admin: 07/15/25 12:20 Dose: 2 mg Documented By: DB Nitroglycerin (Nitroglycerin 0.4 Mg Subl Btl #25) 0.4 mg SL X1 ONE Stop: 07/15/25 12:13 Last Admin: 07/15/25 12:22 Dose: 0.4 mg Documented By: DB Ondansetron HCl (Ondansetron Inj 2 Mg/Ml Inj 2 Ml) 4 mg IVP X1 ONE Stop: 07/15/25 12:13 Last Admin: 07/15/25 12:20 Dose: 4 mg Documented By: DB see above if any Consultations Consultation(s) initiated? (list below): No Diagnosis Chest Pain Differential Diagnosis: other (Acute coronary syndrome, angina, and COPD exacerbation.) Most likely diagnosis given after review of the tests above:: Chest pain Admission Indicated Admission indicated?: not indicated Admission Request Was there a request for admission?: No Disposition Plan Disposition Plan: Discharge Discharge Attestation Discharge Attestation: The patient and all family members were given an opportunity to ask questions and understood the discharge instructions. Discharge instructions specifically effects, indications for sooner follow up or return to the emergency department, and the expected course of current diagnosis. Patient condition: Stable Discharge Plan Plan Patient Disposition: HOME (Self Care) Prescriptions/Referrals Prescriptions/Med Rec: No Action gemfibrozil [Lopid] 600 MG tablet 600 mg PO BID Qty: 0 metformin [Glucophage] 1,000 MG tablet 1,000 mg PO BID Qty: 0 magnesium citrate [Citrate of Magnesia] Solution 300 ml PO QDAY PRN (Reason: constipation) Qty: 296 0RF losartan 50 mg tablet 50 mg PO QDAY Patient Comments: TAKE ONE TABLET BY MOUTH EVERY DAY FOR BLOOD PRESSURE hydrocodone-acetaminophen 10-325 mg tablet 1 tab PO TID PRN (Reason: Pain) Patient Comments: TAKE ONE TABLET BY MOUTH THREE TIMES DAILY NEEDED FOR PAIN omeprazole 40 mg capsule,delayed release(DR/EC) 40 mg PO QDAY Patient Comments: TAKE ONE CAPSULE BY MOUTH EVERY MORNING 30 MINUTES BEFORE BREAKFAST GASTRIC ACIDITY AND HEARTBURN albuterol sulfate 90 mcg/actuation HFA aerosol inhaler 2 puff INHALATION Q4H PRN (Reason: Shortness Of Breath Or Wheezing) Patient Comments: INHALE TWO PUFFS BY MOUTH EVERY 4 HOURS NEEDED FOR BREATHING AND SHORTNESS OF BREATH Januvia 100 mg tablet 100 mg PO QDAY Patient Comments: TAKE ONE TABLET BY MOUTH EVERY DAY FOR DIABETES Jardiance 25 mg tablet 25 mg PO QDAY Patient Comments: TAKE ONE TABLET BY MOUTH EVERY DAY FOR DIABETES Referrals: Param Sheldon MD [Primary Care Provider, Family Practice] - In 1 week Problem List Clinical Impression: Chest pain Patient/Caregiver Discharge Instructions Education Materials: ED Chest Pain, Uncertain Cause Print Language: [place] Stand Alone Forms: Monica Award Info., Patient Portal Info Letter
[2025-07-15] MEDS: ONDANSETRON INJ 2 MG/ML INJ 2 ML 4 MG IVP (12:20)
[2025-07-15] MEDS: MORPHINE SULF INJ 4 MG/ML VIAL 2 MG IVP (12:20)
[2025-07-15] MEDS: NITROGLYCERIN 0.4 MG SUBL BTL #25 SL (12:22)
[2025-07-15 15:06] LABS: Troponin I < 0.002 ng/mL (0.0-0.045)
== END 2025-07-15 16:03 | disposition home or self-care (01) ==
PROVIDERS: Nurse Practitioner Primary Care; Emergency Provider Emergency Medicine; PCP Family Medicine
DX: R07.89 Other chest pain (principal); E11.9 Type 2 diabetes mellitus without complications; F17.210 Nicotine dependence, cigarettes, uncomplicated; I10 Essential (primary) hypertension; Z79.82 Long term (current) use of aspirin; Z79.84 Long term (current) use of oral hypoglycemic drugs
CPT/HCPCS: 36415; 71045; 80053; 83735; 83880; 84484; 85025; 85610; 85730; 93005; 96374; 96375; 99283; J2270; J2405; A9270

== ENCOUNTER 2025-07-26 09:59 | Emergency (ER) | payer MEDICAID, SELFPAY ==
--- NOTE | 2025-07-26 10:09 | XR_ITS ---
EXAMINATION: AP lateral chest 2 views TECHNIQUE: Sitting portable AP lateral chest 2 views Date and time: July 26, 2025, 1026 hours INDICATIONS: Chest pain beginning 2 months ago worse the last 2 days FINDINGS: Normal heart size. The lungs are clear. Increased AP dimension chest. Old left-sided rib fractures IMPRESSION: Mild hyperexpansion No pneumonia or pulmonary edema
--- NOTE | 2025-07-26 10:09 | EKG_ITS ---
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
[2025-07-26 10:15] VITALS: BP 126/89; PULSE 78; RESP 18; TEMP 36.4; O2SAT 95; BMI 32.8
--- NOTE | 2025-07-26 10:23 | EDRME_ITS ---
Rapid Medical Screening Exam [facility] Arrival date/time: 07/26/25 09:59 60-year-old male presents to the Emergency Department today for complaints of chest pain patient reports taking nitroglycerin last night as well as today Chief Complaint: Chest Pain Time Seen by Provider: 07/26/25 10:08 Vital signs: Vital Signs Temperature 97.5 F 07/26/25 10:15 Pulse Rate 78 07/26/25 10:15 Respiratory Rate 18 07/26/25 10:15 Blood Pressure 126/89 H 07/26/25 10:15 Pulse Oximetry (%) 95 07/26/25 10:15 Oxygen Delivery Method Room Air 07/26/25 10:15 Vital signs reviewed by provider: Yes Exam: On exam patient clinically well-appearing does not appear ill or toxic Clinical Impression: Lab work imaging EKG obtained
[2025-07-26 10:48] LABS: Basophils # (Auto) 0.1 Thou/mm3 (0.0-0.2); Basophils % (Auto) 1 % (0-2.5); Eosinophils # (Auto) 0.3 Thou/mm3 (0.0-0.5); Eosinophils % (Auto) 3 % (0-10); Hematocrit 49.1 % (41.0-53.0); Hemoglobin 17.3 g/dL (13.5-16.0); Immature Granulocytes Auto 0.03 Thou/mm3 (0.00-0.00); Lymphocytes # (Auto) 2.0 Thou/mm3 (1.0-4.8); Lymphocytes % (Auto) 24 % (10-50); Mean Corpuscular HGB Conc 35.2 g/dl (31.0-37.0); Mean Corpuscular Hemoglobin 30.7 pg (25.0-35.0); Mean Corpuscular Volume 87 fL (80-100); Monocytes # (Auto) 0.4 Thou/mm3 (0.0-0.8); Monocytes % (Auto) 5 % (0-12); Neutrophils # (Auto) 5.8 Thou/mm3 (1.8-7.7); Neutrophils % (Auto) 67 % (37-80); Nucleated Red Blood Cell # 0.00 Thou/mm3 (0.00-0.00); Nucleated Red Blood Cell % 0 /100 WBC (0); Platelet Count 251 Thou/mm3 (140-440); RDW Standard Deviation 41.5 fL (35.1-43.9); Red Blood Count 5.64 Miln/mm3 (4.50-5.90); White Blood Count 8.5 Thou/mm3 (3.8-10.6)
[2025-07-26 11:05] LABS: B-Type Natriuretic Peptide < 20 pg/mL (0-100)
[2025-07-26 11:06] LABS: Alanine Aminotransferase 38 U/L (10-49); Albumin, Serum 5.1 gm/dL (3.4-4.8); Albumin/Globulin Ratio 2.1 (1.2-2.2); Alkaline Phosphatase 75 U/L (46-116); Anion Gap 8 (7-16); Aspartate Amino Transferase 22 U/L (0-34); BUN/Creatinine Ratio 12 Ratio (12-20); Bilirubin,Total 0.7 mg/dL (0.3-1.2); Blood Urea Nitrogen 13 mg/dL (9-23); Calcium 9.8 mg/dL (8.3-10.6); Calcium (Corrected) 9.8 mg/dL (8.5-10.1); Carbon Dioxide 24.3 mMol/L (20.0-31.0); Chloride 107 mMol/L (98-107); Creatinine (Component) 1.1 mg/dL (0.6-1.3); Estimated Creatinine Clearance 87.6 mL/min (>60); Globulin 2.4 gm/dL (2.3-3.5); Glucose 174 mg/dL (74-106); Magnesium 2.0 mg/dL (1.6-2.6); Osmolality,Calculated 281 (275-295); Potassium 4.5 mMol/L (3.4-5.1); Sodium 139 mMol/L (136-145); Total Protein 7.5 gm/dL (5.7-8.2); Troponin I < 0.020 ng/mL (0.0-0.045); eGFR > 60 See Note
[2025-07-26] MEDS: ONDANSETRON ODT 4 MG TABRAP PO (11:24)
--- NOTE | 2025-07-26 13:25 | EDNOTE_ITS ---
<Statement entered by Christina Turcios MD - 07/30/25 16:32> I, Christina Turcios MD, have reviewed the history, exam, and assessment of the patient. I have evaluated the patient independently and agree with the plan of care documented by [ ]. All diagnostic studies were reviewed and discussed. I confirm the diagnosis as documented by the Resident. I was present during the Medical Decision Making for this patient. The patient's plan of care was created between myself and the Resident and consistent with our discussion of the patient's case. ED Chest Pain RME/HPI General Chief Complaint: Chest Pain Stated Complaint: C/P X 2 DAYS HAS BEEN GOING ON FOR WEEKS Time Seen by Provider: 07/26/25 10:08 Arrival date/time: 07/26/25 09:59 RME / HPI RME / HPI narrative: 07/26/25 09:59 Patient is a 60-year-old male with a past medical history of hypertension hyperlipidemia, diabetes mellitus type 2 who presented to the emergency room with a chief complaint chest pain. Patient stated chest pain has been ongoing for the past several days and it is constant. Pain does not radiate to the left arm or upper jaw. Not made worse by deep inhalation. Not made worse by deep palpation of the chest. Nitroglycerin did not improve symptoms at home. EKG Negative. Troponin negative. Chest x-ray negative for any acute process, old rib fracture noted. Morphine 2 mg IM X 1 Exam: On exam patient clinically well-appearing does not appear ill or toxic Impression: Lab work imaging EKG obtained Related Data Home Medications ?Medication ?Instructions ?Recorded ?Confirmed metformin 1,000 mg tablet 1,000 mg PO BID #0 tabs 05/2205/05/23 (Glucophage) albuterol sulfate 90 mcg/actuation 2 puff inhalation Q 4H PRN 05/05/23 05/05/23 aerosol inhaler Shortness Of Breath Or Wheez ing empagliflozin 25 mg tablet 25 mg PO QDAY 05/05/2304/21 (Jardiance) hydrocodone 10 mg-acetaminophen 1 tab PO TID PRN Pain 05/05/23 05/05/23 325 mg tablet losartan 50 mg tablet 50 mg PO QDAY 05/05/2305/05 omeprazole 40 mg capsule,delayed 40 mg PO QDAY 3 05/05/23 release sitagliptin phosphate 100 mg 100 mg PO QDAY 05/05/23 0 05/05/23 tablet (Januvia) Previous Rx's ?Medication ?Instructions ?Recorded magnesium citrate (Citrate of 300 ml PO QDAY PRN const ipation 05/14/25 Magnesia oral) #296 mL aspirin 81 mg tablet,delayed 81 mg PO QDAY 30 days #30 tabs 07/28/25 release clopidogrel 75 mg tablet 75 mg PO QDAY 30 days #30 ta bs 07/28/25 gemfibrozil 600 mg tablet 600 mg PO QDAY high choleste rol 30 07/28/25 days #30 tabs metoprolol succinate 25 mg 25 mg PO QDAY 30 days #30 t abs 07/28/25 tablet,extended release 24 hr Allergies Allergy/AdvReac Type Severity Reaction Status Date / Time Penicillins Allergy Severe Hives Verified 07/28/25 09:53 Review of Systems Review of Systems Narrative Review of Systems: General appearance: NO weight change, NO fatigue, NO weakness, NO fever, NO chills, NO night sweats, No cough Skin: NO rash, NO itching, NO sores, NO moles HEENT: NO Trauma, NO nausea, NO vomiting, NO visual changes, NO blurry vision, NO double vision, NO tinnitus, NO vertigo, NO ear discharge, NO rhinorrhea, NO stuffiness, NO sneezing, NO allergy, NO epistaxis. NO Hoarseness, NO sore throat, NO swollen neck. Cardiac: Chest pain, NO Palpitations, NO dyspnea on exertion, NO orthopnea, NO paroxysmal nocturnal dyspnea, NO edema Respiratory: NO Shortness of Breath, NO Wheezing, NO Cough, NO Sputum, NO hemoptysis GI:NO appetite, NO nausea, NO vomiting, NO dysphagia, NO changes in bowel frequency, NO stool color, NO diarrhea, NO constipation, NO hemetemesis, NO hemorrhoids, NO melena, NO hematechezia, NO abdominal pain, NO jaundice Renal: NO frequency, NO hesitancy, NO urgency, NO hematuria, NO nocturia, NO incontinence MSK: NO muscle weakness, NO gout, NO arthritis, NO muscle stiffness Neuro: NO headaches, NO tremors, NO weakness, NO paralysis, NO seizures, NO loss of consciousness, NO numbness. Hem: NO anemia, NO easy bruising/bleeding, NO petechiae, NO purpura Endo: NO heat/cold intolerance, NO excessive sweating, NO polyuria, NO polydipsia, NO polyphagia, NO thyroid problems, NO diabetes Pysch: NO mood, NO anxiety, NO depression ED Exam Narrative Physical exam: General Appearance: Alert & Oriented X3, well-nourished male who is lying in bed in mild distress HEENT: Skull symmetrical and atraumatic. Conjunctivae pink and moist. Pupils equal, round, reactive to light and accommodation (PERRL). External ear without lesion or discharge. Straight, nares patient, mucosa pink, no discharge. Cardio: Normal Rate and Rhythm with S1 and S2 heart sounds. No murmurs or extra heart sounds auscultated. No bruits on carotid auscultation. No peripheral edema or cyanosis. Lungs: Symmetric with good expansion. Chest and back non-tender. Breath sounds vesicular without crackles, wheezing or rhonchi Abdomen: Non-tender, Non-distended, Normal Reactive Bowel Sounds Neuro: Alert, cooperative, oriented to person, place, and time. Speech clear. CN grossly intact. Upper motor strength 5/5 and Lower motor strength 5/5. Sensation intact. Course Quality Measures none Orders Category Date Time Status EKG (ED ONLY) *Do not use* NOW Care 07/26/25 10:09 Completed EKG (ED Only) Stat Exams 07/26/25 10:09 Draft XR chest 2V Stat Exams 07/26/25 10:09 Completed BNP [B-Type Natriuretic Peptide] Stat Lab 07/26/25 10:42 Completed CBC Stat Lab 07/26/25 10:42 Completed Comprehensive Metabolic Panel Stat Lab 07/26/25 10:42 Completed Mag [Magnesium] Stat Lab 07/26/25 10:42 Completed Troponin I Routine Lab 07/26/25 13:44 Completed Troponin I Stat Lab 07/26/25 10:42 Completed Morphine* Inj Med 07/26/25 13:24 Discontinued 2 mg IM X1 ONE Ondansetron Odt [Zofran Odt] Med 07/26/25 11:03 Discontinued 4 mg PO X1 ONE Vital Signs Vital signs: Vital Signs Temperature 97.5 F 07/26/25 10:15 Pulse Rate 78 07/26/25 10:15 Respiratory Rate 18 07/26/25 10:15 Blood Pressure 126/89 H 07/26/25 10:15 Pulse Oximetry (%) 95 07/26/25 10:15 Oxygen Delivery Method Room Air 07/26/25 10:15 Chest Pain Patient data External records reviewed:: [facility] previous records Clinical information provided by:: patient Social determinants that could affect healthcare access:: none Patient has the following chronic illnesses:: HTN HLD and DM type 2 How is presenting disease/condition affected by chronic disease/condition?: exacerbated by (history of HTN and Diabetes Mellitus type 2 ) Evaluation data The following diagnostics were reviewed and interpreted by me:: lab results, radiology exam(s) and EKG tracing(s) Lab and/or radiology exams considered but not ordered:: None Interpretation Summary: Patient presented with chest pain radiating for the past two days that last for several hours not improved with nitrolgycerin w/ NO ST elevation on EKG, negative troponins, and chest x-ray showing no acute process - The patient's plan was discussed with attending Dr. Karolina Packer MD PGY2 Internal Medicine Medications / Prescriptions Medications or Prescriptions considered but not ordered:: none Medication administrations:: Medication Administration History Discontinued Medications Morphine Sulfate (Morphine Sulf Inj 4 Mg/Ml Vial) 2 mg IM X1 ONE Stop: 07/26/25 13:25 Last Admin: 07/26/25 13:33 Dose: 2 mg Documented By: KIM Ondansetron HCl (Ondansetron Odt 4 Mg Tabrap) 4 mg PO X1 ONE; Protocol Stop: 07/26/25 11:04 Last Admin: 07/26/25 11:24 Dose: 4 mg Documented By: as above Consultations Consultation(s) initiated? (list below): No Diagnosis Chest Pain Differential Diagnosis: fracture of rib, stable angina, unstable angina pectoris and atypical chest pain Most likely diagnosis given after review of the tests above:: Concern fo ACS, given risk factors of history of HTN and Diabetes Mellitus Type [address] elevation on EKG and negative troponin, likely atypical chest pain. Admission Indicated Admission indicated?: not indicated Admission Request Was there a request for admission?: No Disposition Plan Disposition Plan: Discharge Discharge Attestation Discharge Attestation: The patient and all family members were given an opportunity to ask questions and understood the discharge instructions. Discharge instructions specifically effects, indications for sooner follow up or return to the emergency department, and the expected course of current diagnosis. 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, [place] [address], Prescriptions/Referrals Prescriptions/Med Rec: Continued metformin [Glucophage] 1,000 MG tablet 1,000 mg PO BID Qty: 0 magnesium citrate [Citrate of Magnesia] Solution 300 ml PO QDAY PRN (Reason: constipation) Qty: 296 0RF losartan 50 mg tablet 50 mg PO QDAY Patient Comments: TAKE ONE TABLET BY MOUTH EVERY DAY FOR BLOOD PRESSURE hydrocodone-acetaminophen 10-325 mg tablet 1 tab PO TID PRN (Reason: Pain) Patient Comments: TAKE ONE TABLET BY MOUTH THREE TIMES DAILY NEEDED FOR PAIN omeprazole 40 mg capsule,delayed release(DR/EC) 40 mg PO QDAY Patient Comments: TAKE ONE CAPSULE BY MOUTH EVERY MORNING 30 MINUTES BEFORE BREAKFAST GASTRIC ACIDITY AND HEARTBURN albuterol sulfate 90 mcg/actuation HFA aerosol inhaler 2 puff INHALATION Q4H PRN (Reason: Shortness Of Breath Or Wheezing) Patient Comments: INHALE TWO PUFFS BY MOUTH EVERY 4 HOURS NEEDED FOR BREATHING AND SHORTNESS OF BREATH Januvia 100 mg tablet 100 mg PO QDAY Patient Comments: TAKE ONE TABLET BY MOUTH EVERY DAY FOR DIABETES Jardiance 25 mg tablet 25 mg PO QDAY Patient Comments: TAKE ONE TABLET BY MOUTH EVERY DAY FOR DIABETES No Action aspirin 81 mg Tablet,Delayed Release (Dr/Ec) 81 mg PO QDAY 30 Days Qty: 30 2RF clopidogrel 75 mg Tablet 75 mg PO QDAY 30 Days Qty: 30 2RF metoprolol succinate 25 mg Tablet Extended Release 24 Hr 25 mg PO QDAY 30 Days Qty: 30 2RF gemfibrozil 600 mg tablet 600 mg PO QDAY 30 Days Qty: 30 0RF Referrals: Joby Lewis FNP [Primary Care Provider] - In 1 week Problem List Clinical Impression: Atypical chest pain Patient/Caregiver Discharge Instructions Print Language: Yi Stand Alone Forms: Monica Award Info., Patient Portal Info Letter
[2025-07-26] MEDS: MORPHINE SULF INJ 4 MG/ML VIAL 2 MG IM (13:33)
[2025-07-26 14:06] LABS: Troponin I < 0.020 ng/mL (0.0-0.045)
[2025-07-26 14:51] VITALS: BP 132/86; PULSE 83; RESP 21; TEMP 36.6; O2SAT 95
== END 2025-07-26 14:52 | disposition home or self-care (01) ==
PROVIDERS: Nurse Practitioner Primary Care; Emergency Provider Emergency Medicine
DX: R07.89 Other chest pain (principal); E11.9 Type 2 diabetes mellitus without complications; E78.5 Hyperlipidemia, unspecified; I10 Essential (primary) hypertension; Z79.82 Long term (current) use of aspirin; Z79.84 Long term (current) use of oral hypoglycemic drugs
CPT/HCPCS: 36415; 71046; 80053; 83735; 83880; 84484; 85025; 93005; 96372; 99283; J2270; Q0162

== ENCOUNTER 2025-07-27 08:19 | Inpatient (IN) | payer MEDICAID, SELFPAY ==
[2025-07-27] VITALS (15 sets, daily range): BP systolic 112–175; BP diastolic 66–88; PULSE 57–72; RESP 15–21; TEMP 36.1–37.3; O2SAT 91–99; BMI 32.8
--- NOTE | 2025-07-27 08:21 | XR_ITS ---
EXAMINATION: AP chest single view TECHNIQUE: AP portable upright chest single view Date and time: July 27, 2025, 0924 hours COMPARISON: July 26, 2025 INDICATIONS: Chest pain today. FINDINGS: Mild prominence left ventricle. No pneumonia or pulmonary edema. Moderate osteopenia. IMPRESSION: Mild prominence left ventricle No pneumonia or pulmonary edema
--- NOTE | 2025-07-27 08:22 | EKG_ITS ---
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
--- NOTE | 2025-07-27 08:45 | PC.NURSE ---
Patient came to the ED due to chest pain that woke him up at 0200 with n/v. Patient states he was seen in ED yesterday for same symptoms, and was discharge home. Patient is A&O X4, rating chest pain 10/10 at epigastric area radiating to generalized chest area. Dr. Johsnon at bedside assessing patient and updating on POC.
[2025-07-27 09:07] LABS: Basophils # (Auto) 0.0 Thou/mm3 (0.0-0.2); Basophils % (Auto) 1 % (0-2.5); Eosinophils # (Auto) 0.2 Thou/mm3 (0.0-0.5); Eosinophils % (Auto) 3 % (0-10); Hematocrit 48.5 % (41.0-53.0); Hemoglobin 17.0 g/dL (13.5-16.0); Immature Granulocytes Auto 0.02 Thou/mm3 (0.00-0.00); Lymphocytes # (Auto) 1.5 Thou/mm3 (1.0-4.8); Lymphocytes % (Auto) 20 % (10-50); Mean Corpuscular HGB Conc 35.1 g/dl (31.0-37.0); Mean Corpuscular Hemoglobin 30.5 pg (25.0-35.0); Mean Corpuscular Volume 87 fL (80-100); Monocytes # (Auto) 0.4 Thou/mm3 (0.0-0.8); Monocytes % (Auto) 5 % (0-12); Neutrophils # (Auto) 5.3 Thou/mm3 (1.8-7.7); Neutrophils % (Auto) 71 % (37-80); Nucleated Red Blood Cell # 0.00 Thou/mm3 (0.00-0.00); Nucleated Red Blood Cell % 0 /100 WBC (0); Platelet Count 231 Thou/mm3 (140-440); RDW Standard Deviation 41.4 fL (35.1-43.9); Red Blood Count 5.58 Miln/mm3 (4.50-5.90); White Blood Count 7.5 Thou/mm3 (3.8-10.6)
[2025-07-27] MEDS: LOSARTAN POTASSIUM 25 MG TABLET 50 MG PO (09:11)
[2025-07-27] MEDS: ALBUTEROL RT 2.5 MG/3 ML NEBU INH (09:14)
[2025-07-27] MEDS: ONDANSETRON INJ 2 MG/ML INJ 2 ML 4 MG IVP ×2 (09:14→11:34)
[2025-07-27] MEDS: SODIUM CHLORIDE 0.9% 1000 ML 1,000 ML 999 ML IV (09:15)
[2025-07-27 09:31] LABS: Alanine Aminotransferase 34 U/L (10-49); Albumin, Serum 5.2 gm/dL (3.4-4.8); Albumin/Globulin Ratio 2.3 (1.2-2.2); Alkaline Phosphatase 79 U/L (46-116); Anion Gap 8 (7-16); Aspartate Amino Transferase 20 U/L (0-34); BUN/Creatinine Ratio 13 Ratio (12-20); Bilirubin,Total 0.4 mg/dL (0.3-1.2); Blood Urea Nitrogen 15 mg/dL (9-23); Calcium 9.8 mg/dL (8.3-10.6); Calcium (Corrected) 9.8 mg/dL (8.5-10.1); Carbon Dioxide 27.7 mMol/L (20.0-31.0); Chloride 103 mMol/L (98-107); Creatinine (Component) 1.2 mg/dL (0.6-1.3); Estimated Creatinine Clearance 80.3 mL/min (>60); Globulin 2.3 gm/dL (2.3-3.5); Glucose 335 mg/dL (74-106); Osmolality,Calculated 291 (275-295); Potassium 4.9 mMol/L (3.4-5.1); Sodium 139 mMol/L (136-145); Total Protein 7.5 gm/dL (5.7-8.2); eGFR > 60 See Note
[2025-07-27] MEDS: MORPHINE SULF INJ 4 MG/ML VIAL IVP (09:32)
[2025-07-27 09:33] LABS: Troponin I 0.378 ng/mL (0.0-0.045)
[2025-07-27] MEDS: FAMOTIDINE INJ 10 MG/ML VIAL 2 ML 20 MG IVP (09:41)
--- NOTE | 2025-07-27 10:44 | EDNOTE_ITS ---
ED Chest Pain RME/HPI General Chief Complaint: Chest Pain Stated Complaint: CHEST PAIN x 2 DAYS, SEEN YESTERDAY Time Seen by Provider: 07/27/25 08:42 Arrival date/time: 07/27/25 08:19 Mode of arrival: ambulatory Limitations: no limitations RME / HPI complaint: chest pain Onset (ago): hour(s) Time: :25 Duration: constant Onset: during rest Pain location: substernal Severity: severe Severity scale (1-10): 9 Quality: aching Pain radiation: none Relieving factors: nothing Exacerbating factors: nothing Associated symptoms: nausea and vomiting Treatments prior to arrival chest pain: none RME / HPI narrative: 60 year old male with history of hypertension, diabetes, hyperlipidemia presents to the ED with complaint of substernal chest pain beginning 2 days ago. Pain described as aching in sensation, rating 9/10 in severity. Accompanied by nausea and vomiting. Reports he was evaluated here yesterday for similar chest pain and discharged home diagnosed with atypical chest pain. States the pain today is remains unchanged. Denies fevers, chills, cough, shortness of breath, abdominal pain. Related Data Home Medications ?Medication ?Instructions ?Recorded ?Confirmed gemfibrozil 600 mg tablet (Lopid) 600 mg PO BID ##0 05/05/23 metformin 1,000 mg tablet 1,000 mg PO BID #0 tabs 05/2205/05/23 (Glucophage) albuterol sulfate 90 mcg/actuation 2 puff inhalation Q 4H PRN 05/05/23 05/05/23 aerosol inhaler Shortness Of Breath Or Wheez ing empagliflozin 25 mg tablet 25 mg PO QDAY 05/05/2304/21 (Jardiance) hydrocodone 10 mg-acetaminophen 1 tab PO TID PRN Pain 05/05/23 05/05/23 325 mg tablet losartan 50 mg tablet 50 mg PO QDAY 05/05/2305/05 omeprazole 40 mg capsule,delayed 40 mg PO QDAY 3 05/05/23 release sitagliptin phosphate 100 mg 100 mg PO QDAY 05/05/23 0 05/05/23 tablet (Januvia) Previous Rx's ?Medication ?Instructions ?Recorded magnesium citrate (Citrate of 300 ml PO QDAY PRN const ipation 05/14/25 Magnesia oral) #296 mL Allergies Allergy/AdvReac Type Severity Reaction Status Date / Time Penicillins Allergy Severe Hives Verified 07/26/25 10:05 Review of Systems Review of Systems Systems Reviewed: All systems reviewed, normal except as documented Past Medical History Past Medical History NEUROLOGIC: Negative Neurological Disorders or Seizures CARDIAC: Positive Cardiac Disorders, Angina, Hypercholesterolemia and Hypertension; Negative Congestive Heart Failure RESPIRATORY: Negative Chronic Obstructive Pulmonary Disease (COPD) or Asthma GASTROINTESTINAL: Positive Gastrointestinal Disorders and Gastroesophageal Reflux Disease; Negative Hepatitis or Colorectal Cancer GENITOURINARY: Negative Genitourinary Disorders, Renal Disease or Prostate Cancer REPRODUCTIVE: Negative Testicular Cancer MUSCULOSKELETAL: Positive Musculoskeletal Disorders, Arthritis and Degenerative Joint Disease; Negative Bone Cancer ENT: Positive Blind and Deafness ENDOCRINE: Positive Endocrine Disorders and Diabetes Mellitus Type 2; Negative Diabetes Mellitus Type 1 HEMATOLOGIC: Negative Blood Disorders or Sickle Cell Disease OTHER HISTORY: Positive Chicken Pox; Negative Hospitalization, Autoimmune Disease, Down Syndrome, Developmental Delay, Shingles, Falls, Blood Transfusions, Blood Transfusion Reaction, Anesthesia Reactions, MRSA, VRSA, Vancomycin-Resistant Enterococci, Clostridium Difficile, Colorectal Cancer, Lung Cancer, Prostate Cancer or Testicular Cancer Family History FAMILY HISTORY: Positive Family Cancer; Negative Family Psychiatric Problems, Family Respiratory Disorders, Family Cardiac Disorders, Family Gastrointestinal Problems, Family Surgery or Family Anesthesia Reaction Surgical History SURGICAL: Positive Abdominal Surgery; Negative Cardiac Surgery, Endocrine Surgery, Ear Surgery, Nephrectomy, Transurethral Resection, Neurologic Surgery, Brain Shunt or Vasectomy Social History SMOKING STATUS: Current every day smoker SUBSTANCE USE: marijuana ED Exam Narrative Physical exam: Well-developed, anxious male alert and oriented x 3 General Limitations: Present no limitations General appearance: Present alert and anxious Head Head exam: Present atraumatic and normocephalic Eye Eye exam: Present normal appearance, PERRL and EOMI ENT ENT exam: Present normal exam, normal oropharynx and mucous membranes moist Neck Neck exam: Present normal inspection, full ROM and trachea midline Chest Chest inspection: Present normal inspection, symmetric chest wall rise and tenderness (Tenderness in the left costochondral border T4 through through T6) Respiratory Respiratory exam: Present normal lung sounds bilaterally; Absent respiratory distress Cardiovascular Cardiovascular exam: Present regular rate, normal rhythm and normal heart sounds Abdominal Exam Abdominal exam: Present soft and normal bowel sounds Extremities Exam Extremities exam: Present normal inspection and full ROM Back Exam Back exam: Present normal inspection and full ROM Neurological Exam Neurological exam: Present alert, oriented X3 and CN II-XII intact Psychiatric Psychiatric exam: Present normal affect, normal mood and anxious Skin Skin exam: Present warm, dry, intact and normal color Course Quality Measures none Orders Category Date Time Status COVID-19 Screening Questionnaire NOW Care 07/27/25 12:02 Active Elevated Work Platform Operator NOW Care 07/27/25 08:21 Active Continuous Pulse Oximetry NOW Care 07/27/25 08:55 Completed Decision to Admit X1 Care 07/27/25 12:02 Completed EKG (ED ONLY) *Do not use* NOW Care 07/27/25 08:21 Completed EKG (ED ONLY) *Do not use* NOW Care 07/27/25 08:22 Completed Insert IV NOW Care 07/27/25 08:55 Active Notify provider NOW Care 07/27/25 12:06 Active Consult to Cardiology Stat Cons 07/27/25 11:36 Ordered EKG (ED Only) Stat Exams 07/27/25 08:21 Ordered EKG (ED Only) Stat Exams 07/27/25 08:22 Draft XR chest 1V portable Stat Exams 07/27/25 08:21 Completed CBC Stat Lab 07/27/25 08:58 Completed Comprehensive Metabolic Panel Stat Lab 07/27/25 08:58 Completed Partial Thromboplastin Time Q6H Lab 07/27/25 12:26 Completed Partial Thromboplastin Time Q6H Lab 07/27/25 18:15 Ordered Prothrombin Time with INR Q6H Lab 07/27/25 12:26 Completed Prothrombin Time with INR Q6H Lab 07/27/25 18:15 Ordered Troponin I Stat Lab 07/27/25 08:58 Completed Troponin I Stat Lab 07/27/25 11:06 Completed ALBUTEROL RT 3ml [Proventil Rt 3ml] Med 07/27/25 08:54 Discontinued 2.5 mg INH X1 ONE Aspirin Med 07/27/25 10:51 Discontinued 325 mg PO X1 ONE Famotidine Inj [Pepcid Inj] Med 07/27/25 08:54 Discontinued 20 mg IVP X1 ONE HYDROmorphone INJ [Dilaudid Inj] Med 07/27/25 11:18 Discontinued 1 mg IVP X1 ONE Heparin/D5w 25K 250 ML Ivpb [Heparin in D5w Ivpb] Med 07/27/25 12:15 Active 25,000 unit in 250 ml IV 11.3 units/kg/hr Insulin Regular Med 07/27/25 11:05 Discontinued 10 unit SC X1 ONE Losartan [Cozaar] Med 07/27/25 08:57 Discontinued 50 mg PO X1 ONE MethylPREDNISolone. [SoluMEDROL Inj] Med 07/27/25 08:54 Discontinued 60 mg IVP X1 ONE Metoprolol Tartrate Inj [Lopressor Inj] Med 07/27/25 11:05 Discontinued 5 mg IVP X1 ONE Morphine* Inj Med 07/27/25 08:54 Discontinued 4 mg IVP X1 ONE Nitroglycerin Oint 2% [Nitro-paste Oint 2%] Med 07/27/25 10:51 Discontinued 1 inch TOP X1 ONE Nitroglycerin [Nitrostat 1/150] Med 07/27/25 11:19 Active 0.4 mg SL Q5MIN PRN Ondansetron Inj [Zofran Inj] Med 07/27/25 08:54 Discontinued 4 mg IVP X1 ONE Ondansetron Inj [Zofran Inj] Med 07/27/25 11:18 Discontinued 4 mg IVP X1 ONE Sodium Chloride 0.9% 1000 ml [Ns] 1,000 ml Med 07/27/25 08:54 Discontinued IV 999 mls/hr Vital Signs Vital signs: Vital Signs Temperature 99.2 F 07/27/25 08:31 Pulse Rate 59 L 07/27/25 08:31 Respiratory Rate 19 07/27/25 08:31 Blood Pressure 160/84 H 07/27/25 08:31 Pulse Oximetry (%) 91 L 07/27/25 08:31 Oxygen Delivery Method Room Air 07/27/25 08:31 Pulse ox is 91% on room air which is low. Chest Pain MDM Narrative MDM Narrative:: Vanessa Sahu am scribing for and in the presence of Dr. Johnson. Patient data External records reviewed:: [facility] previous records Clinical information provided by:: patient Social determinants that could affect healthcare access:: none Patient has the following chronic illnesses:: hypertension, diabetes, hyperlipidemia How is presenting disease/condition affected by chronic disease/condition?: exacerbated by Evaluation data The following diagnostics were reviewed and interpreted by me:: lab results, radiology exam(s) and EKG tracing(s) (EKG @ 08:30 AM. Sinus bradycardia, rate 59, no STEMI. ) Lab and/or radiology exams considered but not ordered:: None Interpretation Summary: Ordering Physician: Lorena MOBLEY)Neri NP Date of Service: 07/27/25 Procedure(s): XR chest 1V portable Accession Number(s): [id number] cc: Joby LewisP; Neri Carrillo NP, NP; Farrukh Iyer MD~ EXAMINATION: AP chest single view TECHNIQUE: AP portable upright chest single view Date and time: July 27, 2025, 0924 hours COMPARISON: July 26, 2025 INDICATIONS: Chest pain today. FINDINGS: Mild prominence left ventricle. No pneumonia or pulmonary edema. Moderate osteopenia. IMPRESSION: Mild prominence left ventricle No pneumonia or pulmonary edema Dictated By: Farrukh Iyer MD Signed By: <Electronically signed by Farrukh Iyer MD in OV> 07/27/25 0936 Medications / Prescriptions Medications or Prescriptions considered but not ordered:: None Medication administrations:: Medication Administration History Aspirin (Aspirin Ec 81 Mg Tabec) 81 mg PO QDAY [facility] Stop: 08/27/25 08:59 Atorvastatin Calcium (Atorvastatin Calcium 20 Mg Tablet) 40 mg PO HS [facility] Stop: 08/27/25 20:59 Clopidogrel Bisulfate (Clopidogrel Bisulfate 75 Mg Tablet) 75 mg PO QDAY [facility] Stop: 08/27/25 08:59 Dextrose (Dextrose 50%-Water Inj 50 Ml Syringe) 25 ml IV Q15MIN PRN PRN Reason: BG 50-70 responsive npo pt Stop: 08/26/25 14:14 Dextrose (Dextrose 50%-Water Inj 50 Ml Syringe) 50 ml IV Q15MIN PRN PRN Reason: BG <50 OR BG <70 & pt unresponsive Stop: 08/26/25 14:14 Glucagon (Glucagon Inj 1 Mg Vial) 1 mg IM Q15MIN PRN PRN Reason: BG <70, and no IV access Heparin Sodium/Dextrose (Heparin In D5w Ivpb) 25,000 unit in 250 mls @ 12.045 mls/hr IV .[id number] [facility]; Protocol Stop: 08/10/25 12:14 Last Admin: 07/27/25 13:47 Dose: 9.38 units/kg/hr, 10 mls/hr Documented By: CHINMAY Co-signed By: JMEA Insulin Human Lispro (Insulin Lispro (Admelog) 1 Unit/0.01 Ml Unit) 0 unit SC ACHS [facility]; Protocol Stop: 08/26/25 16:59 Metoprolol Tartrate (Metoprolol Tartrate 25 Mg Tablet) 25 mg PO BID [facility] Stop: 08/26/25 20:59 Nitroglycerin (Nitroglycerin 0.4 Mg Subl Btl #25) 0.4 mg SL Q5MIN PRN PRN Reason: CHEST PAIN Pantoprazole Sodium (Pantoprazole Inj 40 Mg Vial) 40 mg IVP QDAY [facility] Stop: 08/27/25 08:59 Sennosides (Senna Tablet) 1 tab PO QDAY [facility]; Protocol Stop: 08/27/25 08:59 Discontinued Medications Albuterol (Albuterol Rt 2.5 Mg/3 Ml Nebu) 2.5 mg INH X1 ONE Stop: 07/27/25 08:55 Last Admin: 07/27/25 09:14 Dose: 2.5 mg Documented By: JOVANY Aspirin (Aspirin 325 Mg Tablet) 325 mg PO X1 ONE Stop: 07/27/25 10:52 Last Admin: 07/27/25 11:27 Dose: 325 mg Documented By: ER Atorvastatin Calcium (Atorvastatin Calcium 20 Mg Tablet) 80 mg PO X1 ONE Stop: 07/27/25 12:12 Last Admin: 07/27/25 12:56 Dose: 80 mg Documented By: ER Clopidogrel Bisulfate (Clopidogrel Bisulfate 75 Mg Tablet) 300 mg PO X1 ONE Stop: 07/27/25 12:10 Last Admin: 07/27/25 12:53 Dose: 300 mg Documented By: ER Famotidine (Famotidine Inj 10 Mg/Ml Vial 2 Ml) 20 mg IVP X1 ONE Stop: 07/27/25 08:55 Last Admin: 07/27/25 09:41 Dose: 20 mg Documented By: ER Hydromorphone HCl (Hydromorphone Inj 2 Mg/Ml Vial) 1 mg IVP X1 ONE Stop: 07/27/25 11:19 Last Admin: 07/27/25 11:35 Dose: 1 mg Documented By: ER Sodium Chloride (Ns) 1,000 mls @ 999 mls/hr IV .Q1H1M ONE Stop: 07/27/25 09:54 Last Infusion: 07/27/25 10:30 Dose: Infused Documented By: Admin: 07/27/25 09:15 Dose: 999 mls/hr Documented By: ER Insulin Degludec (Insulin Degludec 5 Unit/0.05 Ml (Per 5 Units)) 10 unit SC X1 ONE Stop: 07/27/25 14:18 Insulin Human Regular (Insulin Hum Regular 1 Unit/0.01 Ml (Per Unit)) 10 unit SC X1 ONE Stop: 07/27/25 11:06 Last Admin: 07/27/25 11:29 Dose: 10 unit Documented By: ER Co-signed By: MARANDA Losartan Potassium (Losartan Potassium 25 Mg Tablet) 50 mg PO X1 ONE Stop: 07/27/25 08:58 Last Admin: 07/27/25 09:11 Dose: 50 mg Documented By: ER Methylprednisolone Sodium Succinate (Methylprednisolone Sod Succ 40 Mg/Ml Vial) 60 mg IVP X1 ONE Stop: 07/27/25 08:55 Last Admin: 07/27/25 09:27 Dose: 60 mg Documented By: ER Metoprolol Tartrate (Metoprolol Tartrate Inj 1 Mg/Ml Amp 5 Ml) 5 mg IVP X1 ONE Stop: 07/27/25 11:06 Last Admin: 07/27/25 11:24 Dose: 5 mg Documented By: ER Morphine Sulfate (Morphine Sulf Inj 4 Mg/Ml Vial) 4 mg IVP X1 ONE Stop: 07/27/25 08:55 Last Admin: 07/27/25 09:32 Dose: 4 mg Documented By: ER Nitroglycerin (Nitroglycerin Oint 2% 1 Inch Packet) 1 inch TOP X1 ONE Stop: 07/27/25 10:52 Last Admin: 07/27/25 11:21 Dose: 1 inch Documented By: ER Ondansetron HCl (Ondansetron Inj 2 Mg/Ml Inj 2 Ml) 4 mg IVP X1 ONE; Protocol Stop: 07/27/25 08:55 Last Admin: 07/27/25 09:14 Dose: 4 mg Documented By: ER Ondansetron HCl (Ondansetron Inj 2 Mg/Ml Inj 2 Ml) 4 mg IVP X1 ONE; Protocol Stop: 07/27/25 11:19 Last Admin: 07/27/25 11:34 Dose: 4 mg Documented By: ER See above Consultations Consultation(s) initiated? (list below): Yes Consultation #1 (Physician, Specialty, Details): I consulted with [facility] specialist Dr. Cervantes. Discussed patients PMHx, HPI, ED course, exam findings, labs, EKG results. He agrees to consult. Time: 11:30 Consultation #2 (Physician, Specialty, Details): I spoke with hospitalist team A for admission. Discussed patients PMHx, HPI, ED course, exam findings, labs, and radiology results. The hospitalist agree to accept the patient for admission. Diagnosis Chest Pain Differential Diagnosis: pneumothorax, stable angina, unstable angina pectoris, atypical chest pain, st elevation myocardial infarction, costochondritis and chest pain Most likely diagnosis given after review of the tests above:: ACS Chest pain Hyperglycemia COPD Admission Indicated Admission indicated?: indicated Admission Request Was there a request for admission?: Yes Admission Attestation Admission request attestation: Discussed case with [] from Hospitalist service regarding admission. Discussed patients ED course, exam findings, labs, and radiology results. The Hospitalist [agrees,declines] to accept the patient for admission. Disposition Plan Disposition Plan: Admit Discharge Plan Plan Patient Disposition: Admit Acute Care w/in Hospital Problem List Clinical Impression: ACS (acute coronary syndrome), Chest pain, COPD (chronic obstructive pulmonary disease), Hyperglycemia
[2025-07-27] MEDS: NITROGLYCERIN OINT 2% 1 INCH PACKET TOP (11:21)
[2025-07-27] MEDS: METOPROLOL TARTRATE INJ 1 MG/ML AMP 5 ML 5 MG IVP (11:24)
[2025-07-27] MEDS: INSULIN HUM REGULAR 1 UNIT/0.01 ML (PER UNIT) 10 UNIT SC (11:29)
[2025-07-27 11:32] LABS: Troponin I 0.634 ng/mL (0.0-0.045)
[2025-07-27] MEDS: HYDROmorphone INJ 2 MG/ML VIAL 1 MG IVP (11:35)
[2025-07-27] MEDS: CLOPIDOGREL BISULFATE 75 MG TABLET 300 MG PO (12:53)
[2025-07-27 12:56] LABS: INR 0.9 (0.9-1.3); Partial Thromboplastin Time 23.6 Seconds (22.0-36.0); Prothrombin Time 10.0 Seconds (9.0-12.2)
[2025-07-27] MEDS: ATORVASTATIN CALCIUM 20 MG TABLET 80 MG PO (12:56)
--- NOTE | 2025-07-27 13:11 | ESCONSULT_ITS ---
<Statement entered by Adilia Cervantes MD - 07/31/25 13:23> I personally examined evaluated the patient with resident physician PGY 2 Dr. Mayberry patient admitted hospital severe chest pain found acute myocardial infarction troponin elevation NSTEMI possible circumflex artery occlusion or RCA occlusion could be causing chest pain elevate troponin was admitted to the hospital with the symptoms agree with the treatment plan recommendation as documented continue aspirin and antiplatelet drug therapy and IV heparin statin therapy. Plan on doing coronary angiogram cardiac catheterization next 24 hours. HPI Data of Consult Requesting Physician: Sea Hager MD Admitting Provider: Sea Hager MD Attending Provider: Sea Hager MD Primary Care Provider: ALBERTO Fernandez Consult Narrative Reason for consult: Chest pain, NSTEMI type I History of present illness: 60-year-old male with past medical history of hypertension, tobacco dependence with greater than 01-jkvm-ymqv history, hyperlipidemia, ncf-kogkehe-pgjqilram type 2 diabetes, obesity, chronic pain and loss of right eye vision secondary to a traumatic fall years ago presenting to the ED on 07/27 with substernal chest pain which apparently started about 1 week ago. Patient apparently came to the ED and was assessed for ACS but troponin was negative and EKG did not show any alarming findings patient was given IV pain medication and upon resolution of chest pain was discharged. Patient is presenting back with persistent chest pressure which somewhat radiates to the jaw and is not associated with any palpitations, shortness of breath. Patient also denies having any orthopnea, PND, lower extremity edema; although, he states that in the past he has had lower extremity swelling which has since resolved. Patient has multiple risk factors including smoking tobacco, obesity, hyperlipidemia, hypertension but states that his last A1c was in the fives. Patient last had blood work a year ago and has not followed up with PCP since but has an appointment within the next few weeks. Patient has never seen a auto transmission technician and has never had cardiac workup. Past medical history: Hypertension, hyperlipidemia, diabetes mellitus type 2, loss of right eye Past surgical history: Cholecystectomy, Hemorrhoidectomy, drainage of perianal abscess, left ankle surgery? Medications: Metformin 100mg BID, Januvia 100mg Qday, Jardiance 25mg Qday, Gemfibrozil 600mg BID, Omeprazol 40mg Qday, Sucralfate 1g tab BID, Losartan 50mg Qday, Donnelly 10/325 TID PRN, , Albuterol 90mcg 2puff Q4H PRN Allergies: Penicillin causes hives Family history: Patient's grandfather had heart disease, both parents from cancer but denies any heart history Social history: Greater than 47-vnbf-plpp history, smokes marijuana occasionally denies any other illicit drug use, alcohol occasionally not a daily drinker, lives with in [place]. 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 Pertinent findings included fingerstick blood glucose of 326, hemoglobin 17.0, BMP was largely unremarkable with creatinine 1.2, BUN 15 and a GFR of greater than 60, troponin initially was 0.378 has up trended to 0.634, BNP less than 20, chest x- ray shows some mild prominence of the left ventricle but no pneumonia or pulmonary edema and EKG shows sinus bradycardia without any concerning ST changes noted Patient will be admitted for ACS workup, NSTEMI type I with cardiology referral and left heart catheterization on IV heparin drip. cc:: cc: Sea Haegr MD Exam Vital Signs Temp Pulse Resp BP Pulse Ox O2 Del Method 98.3 F 60 18 119/70 96 Room Air 07/27/25 12:59 07/27/25 12:59 07/27/25 12:59 07/27/25 12:59 07/27/25 12:59 07/27/25 12:59 Narrative Exam Physical Exam: GENERAL: Awake, answering questions appropriately, appears stated age HEENT: NC/AT. Moist mucosa. PERRLA, Exotropia of right eye CARDIO: Heart RRR, no obvious murmurs, no JVD. PULM: No coughing or visible SOB. Lungs CTA B/L. GI: Abdomen soft, obese and distended but nontender with borborygmi apparent. SKIN/MSK/EXT: Multiple tattoos. No wounds/discoloration/rashes/edema/amputations. +Pedal pulses present B/L. NEURO: Oriented x3, Moves extremities x4, no focal neurologic deficits noted Results Labs 07/27/25 08:58 07/27/25 08:58 Labs: Short CBC 07/27/25 Range/Units 08:58 WBC 7.5 (3.8-10.6) Thou/mm3 Hgb 17.0 H (13.5-16.0) g/dL Hct 48.5 (41.0-53.0) % Plt Count 231 (140-440) Thou/mm3 BMP 07/27/25 08:58 Sodium 139 Potassium 4.9 Chloride 103 Carbon Dioxide 27.7 BUN 15 Creatinine 1.2 Glucose 335 H D Calcium 9.8 Cardiac Enzymes 07/27/25 07/27/25 Range/Units 08:58 11:06 Troponin I 0.378 H* D 0.634 H* D (0.0-0.045) ng/mL Liver Function 07/27/25 Range/Units 08:58 Total Bilirubin 0.4 (0.3-1.2) mg/dL AST 20 (0-34) U/L ALT 34 (10-49) U/L Alkaline Phosphatase 79 (46-116) U/L Albumin 5.2 H (3.4-4.8) gm/dL Quality Measures Quality Measures VTE prophylaxis Medications Home Medications and Allergies Home Medications ?Medication ?Instructions ?Recorded ?Confirmed ?Type gemfibrozil 600 mg tablet (Lopid) 600 mg PO BID ##0 05/05/23 History metformin 1,000 mg tablet 1,000 mg PO BID #0 tabs 05/2205/05/23 History (Glucophage) albuterol sulfate 90 mcg/actuation 2 puff inhalation Q 4H PRN 05/05/23 05/05/23 History aerosol inhaler Shortness Of Breath Or Wheez ing empagliflozin 25 mg tablet 25 mg PO QDAY 05/05/2304/21 History (Jardiance) hydrocodone 10 mg-acetaminophen 1 tab PO TID PRN Pain 05/05/23 05/05/23 History 325 mg tablet losartan 50 mg tablet 50 mg PO QDAY 05/05/2305/05 History omeprazole 40 mg capsule,delayed 40 mg PO QDAY 3 05/05/23 History release sitagliptin phosphate 100 mg 100 mg PO QDAY 05/05/23 0 05/05/23 History tablet (Januvia) Allergies Allergy/AdvReac Type Severity Reaction Status Date / Time Penicillins Allergy Severe Hives Verified 07/26/25 10:05 Visit Medications Heparin Sodium/Dextrose (Heparin In D5w Ivpb) 25,000 unit in 250 mls @ 12.791 mls/hr IV .[id number] [facility]; Protocol Stop: 08/10/25 12:14 Nitroglycerin (Nitroglycerin 0.4 Mg Subl Btl #25) 0.4 mg SL Q5MIN PRN PRN Reason: CHEST PAIN Pantoprazole Sodium (Pantoprazole Inj 40 Mg Vial) 40 mg IVP QDAY [facility] Stop: 08/27/25 08:59 Sennosides (Senna Tablet) 1 tab PO QDAY [facility]; Protocol Stop: 08/27/25 08:59 Discontinued Medications Albuterol (Albuterol Rt 2.5 Mg/3 Ml Nebu) 2.5 mg INH X1 ONE Stop: 07/27/25 08:55 Last Admin: 07/27/25 09:14 Dose: 2.5 mg Aspirin (Aspirin 325 Mg Tablet) 325 mg PO X1 ONE Stop: 07/27/25 10:52 Last Admin: 07/27/25 11:27 Dose: 325 mg Atorvastatin Calcium (Atorvastatin Calcium 20 Mg Tablet) 80 mg PO X1 ONE Stop: 07/27/25 12:12 Last Admin: 07/27/25 12:56 Dose: 80 mg Clopidogrel Bisulfate (Clopidogrel Bisulfate 75 Mg Tablet) 300 mg PO X1 ONE Stop: 07/27/25 12:10 Last Admin: 07/27/25 12:53 Dose: 300 mg Famotidine (Famotidine Inj 10 Mg/Ml Vial 2 Ml) 20 mg IVP X1 ONE Stop: 07/27/25 08:55 Last Admin: 07/27/25 09:41 Dose: 20 mg Hydromorphone HCl (Hydromorphone Inj 2 Mg/Ml Vial) 1 mg IVP X1 ONE Stop: 07/27/25 11:19 Last Admin: 07/27/25 11:35 Dose: 1 mg Sodium Chloride (Ns) 1,000 mls @ 999 mls/hr IV .Q1H1M ONE Stop: 07/27/25 09:54 Last Infusion: 07/27/25 10:30 Dose: Infused Insulin Human Regular (Insulin Hum Regular 1 Unit/0.01 Ml (Per Unit)) 10 unit SC X1 ONE Stop: 07/27/25 11:06 Last Admin: 07/27/25 11:29 Dose: 10 unit Losartan Potassium (Losartan Potassium 25 Mg Tablet) 50 mg PO X1 ONE Stop: 07/27/25 08:58 Last Admin: 07/27/25 09:11 Dose: 50 mg Methylprednisolone Sodium Succinate (Methylprednisolone Sod Succ 40 Mg/Ml Vial) 60 mg IVP X1 ONE Stop: 07/27/25 08:55 Last Admin: 07/27/25 09:27 Dose: 60 mg Metoprolol Tartrate (Metoprolol Tartrate Inj 1 Mg/Ml Amp 5 Ml) 5 mg IVP X1 ONE Stop: 07/27/25 11:06 Last Admin: 07/27/25 11:24 Dose: 5 mg Morphine Sulfate (Morphine Sulf Inj 4 Mg/Ml Vial) 4 mg IVP X1 ONE Stop: 07/27/25 08:55 Last Admin: 07/27/25 09:32 Dose: 4 mg Nitroglycerin (Nitroglycerin Oint 2% 1 Inch Packet) 1 inch TOP X1 ONE Stop: 07/27/25 10:52 Last Admin: 07/27/25 11:21 Dose: 1 inch Ondansetron HCl (Ondansetron Inj 2 Mg/Ml Inj 2 Ml) 4 mg IVP X1 ONE; Protocol Stop: 07/27/25 08:55 Last Admin: 07/27/25 09:14 Dose: 4 mg Ondansetron HCl (Ondansetron Inj 2 Mg/Ml Inj 2 Ml) 4 mg IVP X1 ONE; Protocol Stop: 07/27/25 11:19 Last Admin: 07/27/25 11:34 Dose: 4 mg Assessment & Plan Plan 60-year-old male with past medical history of hypertension, tobacco dependence with greater than 70-qvvn-gbln history, hyperlipidemia, tny-tlxrxzk-ohshxwnov type 2 diabetes, obesity, chronic pain and loss of right eye vision secondary to a traumatic fall years ago presenting with substernal chest pain which apparently started about 1 week ago will be admitted for ACS workup, NSTEMI type I with cardiology referral and left heart catheterization on IV heparin drip. #ACS #NSTEMI type I #Elevated troponin #Hyperlipidemia As noted above in the HPI, patient is presenting with typical chest pain ASCVD risk score of 27%, requires high intensity statin Denise score of 82 - 2?% Probability of from admission to 6 months Patient has multiple risk factors for ACS including poorly controlled blood pressure, hyperlipidemia, oqg-uwqknut-pzdqlqbmk type 2 diabetes, smoking history, obesity Patient presenting with substernal chest pain found to have elevated troponin as noted above Plan: Admit to telemetry ECHO ordered- pending read IV heparin drip PRN nitroglycerin q5min up to three doses max Left heart catheterization, keep n.p.o. after midnight DAPT with aspirin and Plavix Beta-blockade with metoprolol to tartrate 25 mg p.o. twice daily; HOLD if HR is less than 70 High-intensity statin HS Follow-up on patient's TSH, lipid panel and A1c Keep magnesium greater than 2.0 and potassium greater than 4.0 #Hypertension Patient appears to be on losartan 50 mg p.o. daily Plan: Restart when appropriate Monitor blood pressure closely #Chx-zmeukwi-ugjshoqhs type 2 diabetes #Loss of right eye vision, exotropia #Chronic pain, back lumbar region #Tobacco dependence #Marijuana use disorder As managed by primary hospitalist team Patient seen and assessed with attending Dr. Billy Mayberry, DO PGY-2 Internal Medicine - [facility]
[2025-07-27] MEDS: Heparin/D5w 25K 250 ML Ivpb 25,000 UNIT/250 ML BAG 10 UNIT IV (13:47)
--- NOTE | 2025-07-27 14:23 | ECHO_ITS ---
Patient Info Name: Isaiah Ragland Age: 60 years : 1965 Gender: Male Ht: 180 cm Wt: 107 kg BSA: 2.34 m2 BP: 124 / 85 mmHg HR: 55 bpm Exam Date: 07/27/2025 3:09 PM Admit Date: 07/27/2025 Site: [facility] Room Number: [id number] Patient Status: I Exam Type: CA echo doppler complete Soft Sugar Supervisor: Shyla Fajardo Ordering Physician: Eduin Anaya Study Info Indications NSTEMI - Primary Location: S2NX Left Ventricular Outflow Tract Name Value Normal LVOT 2D LVOT Diameter 2.0 cm LVOT Doppler LVOT Peak Velocity 118 cm/s LVOT Mean Gradient 3 mmHg LVOT VTI 24 cm LVOT VTI/AV VTI Ratio 0.7 LVOT Stroke Volume 74 ml Pulmonic Valve Name Value Normal PV Doppler PV Peak Velocity 105 cm/s Mitral Valve Name Value Normal MV Doppler MV Decel Pima 285 cm/s2 MV PHT 66 ms MV Area (PHT) 3.3 cm2 4.0-5.0 MV Diastolic Function MV E Peak Velocity 65 cm/s MV A Peak Velocity 67 cm/s MV E/A 1.0 MV Annular TDI MV Septal e' Velocity 10.0 cm/s MV E/e' (Septal) 6.5 MV Lateral e' Velocity 14.0 cm/s MV E/e' (Lateral) 4.7 MV e' Average 12.00 cm/s MV E/e' (Average) 5.6 Tricuspid Valve Name Value Normal TV Regurgitation Doppler TR Peak Velocity 210 cm/s Estimated PAP/RSVP RA Pressure 3 mmHg <=5 PA Systolic Pressure 21 mmHg <36 RV Systolic Pressure 21 mmHg <36 Aortic Valve Name Value Normal AV 2D/MM AV Cusp Sep (MM) 1.6 cm AV Doppler AV Peak Velocity 159 cm/s AV Mean Gradient 6 mmHg AV VTI 35 cm AV Area (Cont Eq VTI) 2.1 cm2 >=3.0 AV Area (Cont Eq Chucky) 2.3 cm2 AV DI (Chucky) 0.74 AV Regurgitation 2D LVOT Area 3.1 cm2 Ventricles Name Value Normal LV Dimensions 2D/MM IVS Diastolic Thickness (2D) 1.1 cm 0.6-1.0 LVID Diastole (2D) 5.7 cm 4.2-5.8 LVIW Diastolic Thickness (2D) 0.9 cm 0.6-1.0 LVID Systole (2D) 3.5 cm 2.5-4.0 LVOT Diameter 2.0 cm LV Mass (2D Cubed) 226.35 g 88.00-224.00 LV Mass Index (2D Cubed) 97 g/m2 49-115 Relative Wall Thickness (2D) 0.32 <=0.42 IVS/LVIW Diastolic Thickness (2D) 1.22 0.00-1.50 LV Fractional Shortening/Ejection Fraction 2D/MM LV Fractional Shortening (2D) 39 % 25-43 LV EF (2D Teichholz) 68 % Atria Name Value Normal LA Dimensions LA Volume (4C A-L) 40 ml LA Volume (BP A-L) 41 ml Left Ventricle Left ventricular chamber dimension is normal. Left ventricular systolic function is normal with visually estimated ejection fraction of 55-60%. There is mild eccentric hypertrophy noted in the left ventricle. Left ventricular segmental wall motion is normal. There is normal diastolic function in the left ventricle. Right Ventricle Right ventricular chamber dimension is normal. Right ventricular systolic function is normal. Left Atrium Left atrial chamber dimension is normal. Right Atrium Right atrial chamber dimension is normal. Aortic Valve The aortic valve is trileaflet. There is mild aortic valve sclerosis. There is no aortic valve stenosis with a peak velocity of 159 cm/s, mean gradient of 6 mmHg, and aortic valve area of 2.1 cm2. There is no aortic valve regurgitation. Pulmonic Valve The pulmonic valve is normal. There is no pulmonic valve stenosis. There is no pulmonic regurgitation. Mitral Valve The mitral valve has normal leaflets. There is no mitral valve stenosis. There is mild mitral valve regurgitation. Tricuspid Valve The tricuspid valve leaflets are normal. There is no tricuspid valve stenosis. There is trace tricuspid valve regurgitation. No pulmonary hypertension, estimated pulmonary arterial systolic pressure is 21 mmHg and systemic blood pressure of 124 mmHg in systole. Pericardium/Pleural The pericardium appears normal. There is no pericardial effusion. No pleural effusion visualized. Inferior Vena Cava Normal inferior vena cava with >50% collapse upon inspiration consistent with normal right atrial pressure, 3 mmHg. Aorta The aortic measurements are indexed to age and body surface area. The aortic root at the sinus of Valsalva is not well visualized. The prox ascending aorta is not well visualized. Summary 1. Left ventricle size is normal and systolic function is normal. Estimated ejection fraction is 55-60%. There is normal diastolic function. There is mild eccentric hypertrophy noted. 2. Right ventricle chamber size is normal and systolic function is normal. Estimated RVSP is 21 mmHg. 3. There is mild aortic valve sclerosis with no stenosis and no regurgitation. 4. There is mild mitral valve regurgitation. 5. There is trace tricuspid valve regurgitation. 6. Normal IVC with estimated RA pressure 3 mmHg. Report Signatures Finalized by Adilia Cervantes on 07/27/2025 05:34 PM
--- NOTE | 2025-07-27 14:32 | ESHP_ITS ---
<Statement entered by Sea Hager MD - 08/10/25 07:51> I reviewed above note and agree with findings and plans. I have also personally examined the patient with medicine team and went over assessment and plan with medical team including product management internship and resident physician. <Statement entered by Eduin Anaya MD - 07/31/25 13:41> I have personally seen and examined the patient, agree with residents assessment and plan Patient plan of care was discussed with the attending physician, Dr. Madan Anaya, PGY2 Documentation for date of: 07/27/25 HPI History of Present Illness Chief complaint: Chest pain History of present illness: 60-year-old male with a past medical history of hypertension, hyperlipidemia, and type 2 diabetes mellitus who presents with recurrent chest pain. He reports initially coming to the ED last week for similar chest pain, described as burning across his chest. He was treated with morphine at that time and discharged home. The pain recurred two days ago and again last night, prompting return to the ED. He describes the pain as severe, burning, and radiating across the entire chest, associated with a sensation of ?being on fire.? The pain woke him from sleep around 2:00 AM. He attempted self-relief by sitting in front of his wood stove, thinking it was due to breathing cold air, but symptoms persisted. He reports partial temporary relief only after receiving Dilaudid (hydromorphone) in the ED. He was informed that he had a ?mild heart attack.? He has experienced similar episodes in the past that improved with baby aspirin. In recent days, despite adherence to aspirin, the pain has persisted and worsened. He has tried nitroglycerin (Nitrostat) without significant relief over the last 3 days. He denies associated shortness of breath, diaphoresis, nausea, vomiting, or syncope. No recent fevers or cough. He has chronic musculoskeletal pain from a remote traumatic fall in 1986, for which he states has extensive experience with pain management. Review of Systems: Negative unless stated above Past Medical History: * Hypertension * Hyperlipidemia * Type 2 diabetes mellitus * Chronic pain (status post fall injury in 1986) * History of reflux esophagitis Past Surgical History: * Hernia repair * Cholecystectomy * Rotator cuff repair * Ankle fracture repair (3 places) * Incision and drainage of perianal abscess Medications: (Pending med rec's) * Lisinopril (dose unknown) * Atorvastatin (Lipitor, 40 mg daily) * Metformin * Jardiance (empagliflozin) * Baby aspirin 81 mg daily * Nitroglycerin SL as needed for chest pain Allergies: * Penicillin (rash; reported 40 years ago, uncertain true allergy) Family History: * Mother: Heart disease * Grandfather: Diabetes, heart attacks, kidney disease * Father: No major illnesses Social History: * Retired * Lives with * 47 pack year history Exam Vital Signs Temp Pulse Resp BP Pulse Ox O2 Del Method 96.9 F 68 15 124/85 H 96 Room Air 07/27/25 13:35 07/27/25 13:35 07/27/25 13:35 07/27/25 13:35 07/27/25 13:35 07/27/25 13:35 Narrative Exam General: Alert, oriented, in no acute distress HEENT: PERRL, EOMI, no scleral icterus Neck: No JVD, no lymphadenopathy Cardiac: Regular rate and rhythm; normal S1, S2; no murmurs or rubs Lungs: Clear to auscultation bilaterally; no wheezing or crackles Abdomen: Soft, non-tender, non-distended, normoactive bowel sounds Extremities: No edema; peripheral pulses palpable Neuro: Alert and oriented ?3; no focal deficits Skin: Warm, dry, intact Results: Labs 07/27/25 08:58 07/27/25 08:58 Labs: Short CBC 07/27/25 Range/Units 08:58 WBC 7.5 (3.8-10.6) Thou/mm3 Hgb 17.0 H (13.5-16.0) g/dL Hct 48.5 (41.0-53.0) % Plt Count 231 (140-440) Thou/mm3 BMP 07/27/25 08:58 Sodium 139 Potassium 4.9 Chloride 103 Carbon Dioxide 27.7 BUN 15 Creatinine 1.2 Glucose 335 H D Calcium 9.8 Cardiac Enzymes 07/27/25 07/27/25 Range/Units 08:58 11:06 Troponin I 0.378 H* D 0.634 H* D (0.0-0.045) ng/mL Liver Function 07/27/25 Range/Units 08:58 Total Bilirubin 0.4 (0.3-1.2) mg/dL AST 20 (0-34) U/L ALT 34 (10-49) U/L Alkaline Phosphatase 79 (46-116) U/L Albumin 5.2 H (3.4-4.8) gm/dL Quality Measures Quality Measures VTE prophylaxis Medications Home Medications and Allergies Home Medications ?Medication ?Instructions ?Recorded ?Confirmed ?Type gemfibrozil 600 mg tablet (Lopid) 600 mg PO BID ##0 05/05/23 History metformin 1,000 mg tablet 1,000 mg PO BID #0 tabs 05/2205/05/23 History (Glucophage) albuterol sulfate 90 mcg/actuation 2 puff inhalation Q 4H PRN 05/05/23 05/05/23 History aerosol inhaler Shortness Of Breath Or Wheez ing empagliflozin 25 mg tablet 25 mg PO QDAY 05/05/2304/21 History (Jardiance) hydrocodone 10 mg-acetaminophen 1 tab PO TID PRN Pain 05/05/23 05/05/23 History 325 mg tablet losartan 50 mg tablet 50 mg PO QDAY 05/05/2305/05 History omeprazole 40 mg capsule,delayed 40 mg PO QDAY 3 05/05/23 History release sitagliptin phosphate 100 mg 100 mg PO QDAY 05/05/23 0 05/05/23 History tablet (Januvia) Allergies Allergy/AdvReac Type Severity Reaction Status Date / Time Penicillins Allergy Severe Hives Verified 07/26/25 10:05 Visit Medications Aspirin (Aspirin Ec 81 Mg Tabec) 81 mg PO QDAY VICKY Stop: 08/27/25 08:59 Atorvastatin Calcium (Atorvastatin Calcium 20 Mg Tablet) 40 mg PO HS VICKY Stop: 08/27/25 20:59 Clopidogrel Bisulfate (Clopidogrel Bisulfate 75 Mg Tablet) 75 mg PO QDAY VICKY Stop: 08/27/25 08:59 Dextrose (Dextrose 50%-Water Inj 50 Ml Syringe) 25 ml IV Q15MIN PRN PRN Reason: BG 50-70 responsive npo pt Stop: 08/26/25 14:14 Dextrose (Dextrose 50%-Water Inj 50 Ml Syringe) 50 ml IV Q15MIN PRN PRN Reason: BG <50 OR BG <70 & pt unresponsive Stop: 08/26/25 14:14 Glucagon (Glucagon Inj 1 Mg Vial) 1 mg IM Q15MIN PRN PRN Reason: BG <70, and no IV access Heparin Sodium/Dextrose (Heparin In D5w Ivpb) 25,000 unit in 250 mls @ 12.045 mls/hr IV .[id number] [facility]; Protocol Stop: 08/10/25 12:14 Last Admin: 07/27/25 13:47 Dose: 9.38 units/kg/hr, 10 mls/hr Insulin Human Lispro (Insulin Lispro (Admelog) 1 Unit/0.01 Ml Unit) 0 unit SC ACHS [facility]; Protocol Stop: 08/26/25 16:59 Metoprolol Tartrate (Metoprolol Tartrate 25 Mg Tablet) 25 mg PO BID [facility] Stop: 08/26/25 20:59 Nitroglycerin (Nitroglycerin 0.4 Mg Subl Btl #25) 0.4 mg SL Q5MIN PRN PRN Reason: CHEST PAIN Pantoprazole Sodium (Pantoprazole Inj 40 Mg Vial) 40 mg IVP QDAY [facility] Stop: 08/27/25 08:59 Sennosides (Senna Tablet) 1 tab PO QDAY [facility]; Protocol Stop: 08/27/25 08:59 Discontinued Medications Albuterol (Albuterol Rt 2.5 Mg/3 Ml Nebu) 2.5 mg INH X1 ONE Stop: 07/27/25 08:55 Last Admin: 07/27/25 09:14 Dose: 2.5 mg Aspirin (Aspirin 325 Mg Tablet) 325 mg PO X1 ONE Stop: 07/27/25 10:52 Last Admin: 07/27/25 11:27 Dose: 325 mg Atorvastatin Calcium (Atorvastatin Calcium 20 Mg Tablet) 80 mg PO X1 ONE Stop: 07/27/25 12:12 Last Admin: 07/27/25 12:56 Dose: 80 mg Clopidogrel Bisulfate (Clopidogrel Bisulfate 75 Mg Tablet) 300 mg PO X1 ONE Stop: 07/27/25 12:10 Last Admin: 07/27/25 12:53 Dose: 300 mg Famotidine (Famotidine Inj 10 Mg/Ml Vial 2 Ml) 20 mg IVP X1 ONE Stop: 07/27/25 08:55 Last Admin: 07/27/25 09:41 Dose: 20 mg Hydromorphone HCl (Hydromorphone Inj 2 Mg/Ml Vial) 1 mg IVP X1 ONE Stop: 07/27/25 11:19 Last Admin: 07/27/25 11:35 Dose: 1 mg Sodium Chloride (Ns) 1,000 mls @ 999 mls/hr IV .Q1H1M ONE Stop: 07/27/25 09:54 Last Infusion: 07/27/25 10:30 Dose: Infused Insulin Degludec (Insulin Degludec 5 Unit/0.05 Ml (Per 5 Units)) 10 unit SC X1 ONE Stop: 07/27/25 14:18 Insulin Human Regular (Insulin Hum Regular 1 Unit/0.01 Ml (Per Unit)) 10 unit SC X1 ONE Stop: 07/27/25 11:06 Last Admin: 07/27/25 11:29 Dose: 10 unit Losartan Potassium (Losartan Potassium 25 Mg Tablet) 50 mg PO X1 ONE Stop: 07/27/25 08:58 Last Admin: 07/27/25 09:11 Dose: 50 mg Methylprednisolone Sodium Succinate (Methylprednisolone Sod Succ 40 Mg/Ml Vial) 60 mg IVP X1 ONE Stop: 07/27/25 08:55 Last Admin: 07/27/25 09:27 Dose: 60 mg Metoprolol Tartrate (Metoprolol Tartrate Inj 1 Mg/Ml Amp 5 Ml) 5 mg IVP X1 ONE Stop: 07/27/25 11:06 Last Admin: 07/27/25 11:24 Dose: 5 mg Morphine Sulfate (Morphine Sulf Inj 4 Mg/Ml Vial) 4 mg IVP X1 ONE Stop: 07/27/25 08:55 Last Admin: 07/27/25 09:32 Dose: 4 mg Nitroglycerin (Nitroglycerin Oint 2% 1 Inch Packet) 1 inch TOP X1 ONE Stop: 07/27/25 10:52 Last Admin: 07/27/25 11:21 Dose: 1 inch Ondansetron HCl (Ondansetron Inj 2 Mg/Ml Inj 2 Ml) 4 mg IVP X1 ONE; Protocol Stop: 07/27/25 08:55 Last Admin: 07/27/25 09:14 Dose: 4 mg Ondansetron HCl (Ondansetron Inj 2 Mg/Ml Inj 2 Ml) 4 mg IVP X1 ONE; Protocol Stop: 07/27/25 11:19 Last Admin: 07/27/25 11:34 Dose: 4 mg Assessment & Plan Plan 60-year-old male with hypertension, hyperlipidemia, and diabetes presenting with recurrent, burning substernal chest pain refractory to nitroglycerin, concerning for ACS (acute coronary syndrome). Currently managed with heparin and antiplatelet therapy. # Chest Pain # ACS # NSTEMI Recurrent, burning substernal chest pain unresponsive to nitroglycerin, concerning for acute coronary syndrome (ACS). Mild troponin elevation (0.378 -> 0.634) noted. EKG showed no ST depressions or T wave inversions. Plan: * Admit to telemetry for continuous monitoring. * Serial troponins to assess for ongoing myocardial injury. * Continue Aspirin 81 mg daily. * Initiate Heparin drip per ACS protocol. * Continue Atorvastatin 40 mg daily for high-intensity statin therapy. * Start Metoprolol 25 mg BID * Echocardiogram and cardiology consult to evaluate for myocardial ischemia or infarction. * Continue Nitroglycerin SL as needed for chest pain. * Continue Plavix 75 mg daily. # Essential hypertension Stable on home medications. Pending med rec's Plan: * Continue home meds once med rec's are back * Monitor blood pressure closely, adjust medications as needed. * Continue routine BP checks. # Hyperlipidemia Pending lipid panel Plan: * Continue Atorvastatin 40 mg daily. * Monitor lipid panel while inpatient. # Type 2 Diabetes Mellitus, insulin-independent Type 2 diabetes, poorly controlled in the context of acute illness. Plan: * Hold Metformin and Jardiance while inpatient. * Initiate Sliding Scale Insulin (SSI) for glucose control. * Ordered A1c in a.m. * Monitor blood glucose AC/HS. ----- Plan discussed with attending physician Dr. Hager and senior resident Dr. Jaclyn Mayer MD PGY-1 Internal Medicine
[2025-07-27] MEDS: INSULIN DEGLUDEC 5 UNIT/0.05 ML (PER 5 UNITS) 10 UNIT SC (15:08)
[2025-07-27 16:53] LABS: Troponin I 1.004 ng/mL (0.0-0.045)
[2025-07-27] MEDS: INSULIN LISPRO (AdmeLOG) 1 UNIT/0.01 ML UNIT SC ×2 (17:19→20:28)
[2025-07-27 19:03] LABS: INR 1.0 (0.9-1.3); Partial Thromboplastin Time 26.9 Seconds (22.0-36.0); Prothrombin Time 10.4 Seconds (9.0-12.2)
[2025-07-27 20:05] LABS: Partial Thromboplastin Time 29.4 Seconds (22.0-36.0)
[2025-07-27 20:15] LABS: Troponin I 0.826 ng/mL (0.0-0.045)
[2025-07-27] MEDS: HEPARIN SOD INJ 5000 UNIT/ML VIAL 4000 UNIT IV (21:45)
[2025-07-28] VITALS (21 sets, daily range): BP systolic 126–154; BP diastolic 60–92; PULSE 52–68; RESP 14–22; TEMP 36.1–36.4; O2SAT 94–97; BMI 32.3; BMI 32.5
--- NOTE | 2025-07-28 03:38 | PC.NURSE ---
Attempted to do med rec, however patient is unsure on exact medication names and dosages. He stated he will ask his to bring home medications when she comes in to visit.
[2025-07-28 03:47] LABS: Basophils # (Auto) 0.0 Thou/mm3 (0.0-0.2); Basophils % (Auto) 0 % (0-2.5); Eosinophils # (Auto) 0.2 Thou/mm3 (0.0-0.5); Eosinophils % (Auto) 2 % (0-10); Hematocrit 45.8 % (41.0-53.0); Hemoglobin 16.0 g/dL (13.5-16.0); Immature Granulocytes Auto 0.03 Thou/mm3 (0.00-0.00); Lymphocytes # (Auto) 2.5 Thou/mm3 (1.0-4.8); Lymphocytes % (Auto) 24 % (10-50); Mean Corpuscular HGB Conc 34.9 g/dl (31.0-37.0); Mean Corpuscular Hemoglobin 30.5 pg (25.0-35.0); Mean Corpuscular Volume 87 fL (80-100); Monocytes # (Auto) 0.6 Thou/mm3 (0.0-0.8); Monocytes % (Auto) 5 % (0-12); Neutrophils # (Auto) 7.0 Thou/mm3 (1.8-7.7); Neutrophils % (Auto) 68 % (37-80); Nucleated Red Blood Cell # 0.00 Thou/mm3 (0.00-0.00); Nucleated Red Blood Cell % 0 /100 WBC (0); Platelet Count 222 Thou/mm3 (140-440); RDW Standard Deviation 41.1 fL (35.1-43.9); Red Blood Count 5.25 Miln/mm3 (4.50-5.90); White Blood Count 10.3 Thou/mm3 (3.8-10.6)
[2025-07-28 03:53] LABS: Glucose Estimated Average 226 mg/dL (80-131); Hemoglobin A1C 9.5 % Hgb (4.8-6.0)
[2025-07-28 04:05] LABS: Partial Thromboplastin Time 45.3 Seconds (22.0-36.0)
[2025-07-28 04:12] LABS: Alanine Aminotransferase 27 U/L (10-49); Albumin, Serum 4.8 gm/dL (3.4-4.8); Albumin/Globulin Ratio 2.4 (1.2-2.2); Alkaline Phosphatase 67 U/L (46-116); Anion Gap 7 (7-16); Aspartate Amino Transferase 23 U/L (0-34); BUN/Creatinine Ratio 18 Ratio (12-20); Bilirubin,Total 0.4 mg/dL (0.3-1.2); Blood Urea Nitrogen 18 mg/dL (9-23); Calcium 9.4 mg/dL (8.3-10.6); Calcium (Corrected) 9.4 mg/dL (8.5-10.1); Carbon Dioxide 25.9 mMol/L (20.0-31.0); Cardiac Risk Estimate 5.8 RATIO (4.0-6.7); Chloride 108 mMol/L (98-107); Cholesterol 226 mg/dL (132-200); Creatinine (Component) 1.0 mg/dL (0.6-1.3); Estimated Creatinine Clearance 96.4 mL/min (>60); Globulin 2.0 gm/dL (2.3-3.5); Glucose 151 mg/dL (74-106); HDL Cholesterol 39 mg/dL (40-60); LDL Cholesterol,Calculated 136 mg/dL (0-130); Osmolality,Calculated 286 (275-295); Potassium 4.0 mMol/L (3.4-5.1); Sodium 141 mMol/L (136-145); Thyroid Stimulating Hormone 0.58 uIU/mL (0.55-4.78); Total Protein 6.8 gm/dL (5.7-8.2); Triglycerides 254 mg/dL (30-150); eGFR > 60 See Note
[2025-07-28] MEDS: HEPARIN SOD INJ 5000 UNIT/ML VIAL 2000 UNIT IV (04:23)
[2025-07-28] MEDS: MORPHINE SULF INJ 4 MG/ML VIAL 2 MG IVP (05:07)
--- NOTE | 2025-07-28 08:30 | ECHO_ITS ---
Patient Info Name: Isaiah Ragland Age: 60 yrs Admit Date: 07/27/2025 Exam Date: 07/28/2025 8:40 AM Patient Status: I Site: [facility] Ht: 180 cm Wt: 105 kg BSA: 2.32 m2 Gender: Male : 1965 Exam Type: CCL heart cath LT ventricle Procedure Staff Name: Adilia Cervantes Title: Role: Cop Winder Name: Caroline Camacho Title: LAURO Role: Communications Program Manager Name: Georgiana Reed Title: Tech Role: Monitor Name: Tyree Chatman Title: Foam Rubber Mixer Role: Scrub Name: Dillon Guzman Title: LAURO Role: Sedation Nurse Procedure(s) Code: 76727910 Description: LHC WITH VENTRICULOGRAM Code: [id number] Description: CONSCIOUS SEDATION INITIAL Code: [id number] Description: CONSCIOUS SEDATION ADDITIONAL Exam Priority: R Diagnostic Findings * Left main has no disease. * Left anterior descending has no disease. * Circumflex has no disease. * Proximal Right Coronary Artery: , JAE: 3 flow. * Coronary angiography shows right dominance. Interventional Findings * Proximal Right Coronary Artery: 99% stenosis treated with a 2.50 x 12mm Euphora Balloon, 3.00 x 15 mm [place] Rx Stent and Drug Eluting Stent. 0% residual stenosis, JAE: 3 flow. Successful Intervention. Ventriculography Ejection Fraction: 60 % Left Ventriculography Findings All left ventricular loera are normal. Cath Hemodynamic Data Pressures Phase:Baseline AO : 93 mmHg/59 mmHg(71 mmHg) @ 8:49:14 AM LV : 112 mmHg/-4 mmHg/15 mmHg @ 8:48:58 AM 114 mmHg/-1 mmHg/8 mmHg @ 8:49:08 AM AO HR: 65 bpm @ 8:49:14 AM LV HR: 69 bpm @ 8:48:58 AM 59 bpm @ 8:49:08 AM LV DP/DT: 3,425 mmHg/s @ 8:48:58 AM 1,785 mmHg/s @ 8:49:08 AM Procedural Details Infusor 500ml pressure bag administered. 500ml NS with 2500 units Heparin administered. 1000 ml NS with 5000 units Heparin administered. Patient Allergies: PENICILLINS. Patient prepped and draped in usual sterile technique. Time out taken. Patient identity and surgery site confirmed. Fire risk assessment and proper safety precautions in place. Medication verified by sedation nurse with circulating nurse. 1% Lidocaine Administered To RT Wrist. Percutaneous Puncture To RRA. [place] Sheath 6fr. [place] Sheath 6fr sheath inserted into RRA. Heparin IA 3,000 units. TIG 4.0 / 5FR. Baby J Wire. TIG4 Catheter Inserted by Guidewire (RADIAL). Guidewire Removed. LV Gram Performed. Pullback from LV to AO. Catheter Repositioned. Left Coronary System Injected and Multiple Views Taken. Catheter Repositioned. Right Coronary System Injected and Multiple Views Taken. Guidewire Inserted. Heparin IV 1,000 units. Heparin IV 3,000 units. Catheter Removed. 6 FR JR 4 Launcher Guide Catheter. Guide Catheter Inserted. Runthrough NS. Interventional Guidewire Inserted. 2.50 x 12mm Euphora Balloon. Balloon Catheter Inserted. Balloon inflated for 7 sec @ 8 verónica in the pRCA. ACT: (Reference Range 89-169 seconds)= 257. Balloon inflated for 6 sec @ 8 verónica in the pRCA. Balloon inflated for 3 sec @ 8 verónica in the pRCA. Balloon inflated for 9 sec @ 8 verónica in the pRCA. Balloon Catheter Removed. 3.00 x 15 mm [place] Rx Stent. Stent Catheter inserted. Stent deployed for 9 sec @ 12 verónica in the pRCA. Stent deployed for 13 sec @ 14 verónica in the pRCA. Stent Deployment System Removed. Post Injection Of Coronaries. Interventional wire Removed. Guide Catheter Removed. Sheath Pulled & Pressure Applied with Closure Device. TR Band w/ Inflator. TR BAND in Place. HEMOSTASIS Obtained. No complications. Post Procedure Teaching Performed. Patient Verbalizes Understanding Of Teaching. Patient Transferred to Cardiac Treasury Manager Recovery. Complication Findings No complications. X-ray Summary Total Time (min): 5.48 Interventional Time (min): --- Diagnostic Time (min): --- Total Dose (mGy): --- Air Kerma (mGy): --- DAP (cGy*cm2): --- Contrast Contrast: ISOVUE 370 Amount (mL): 80 ml Conclusions 1. Proximal Right Coronary Artery was treated with a zotarolimus-eluting stent and a drug eluting stent. 2. Proximal Right Coronary Artery: , JAE: 3 flow. 3. There is coronary artery disease with one vessel disease. 4. All left ventricular loera are normal. 5. Normal left ventricular systolic function. Ejection fraction of 60%. 6. Left main has no disease. 7. Left anterior descending has no disease. 8. Coronary angiography shows right dominance. 9. Circumflex has no disease. Report Signatures Interventional Finalized by Adilia Cervantes on 07/29/2025 01:03 PM Diagnostic Finalized by Adilia Cervantes on 07/29/2025 01:03 PM
--- NOTE | 2025-07-28 09:10 | ESPR_ITS ---
<Statement entered by Adilia Cervantes MD - 07/31/25 13:24> I personally I personally examined the patient evaluated patient today following angiogram patient doing well patient had single-vessel CAD 99% stenosis RCA proximal segment culprit lesion underwent successful PCI stent placement primary angioplasty with excellent results with drug-eluting stent the patient remained stable can be discharged home today or tomorrow. Evaluated patient with resident physician PGY 2 Dr. Mayberry agree with the treatment plan recommendation as documented Documentation for date of: 07/28/25 Subjective Subjective Interval history: Patient seen and assessed in hospital bed denies having any chest pain at this time. Patient completed left heart catheterization which showed narrowing and greater than 90% stenosis of the proximal RCA; successful PCI with stent placement was done which showed revascularization of the area. Patient's LAD and LCx largely unremarkable, referred to operative note for a more comprehensive assessment of the left heart cath. Patient will continue on DAPT, high intensity statin and beta-jordon. Can discharge patient from cardiology standpoint with close follow-up. Exam Vital Signs Temp Pulse Resp BP Pulse Ox O2 Del Method 97.0 F 64 17 144/89 H 94 L Room Air 07/28/25 08:00 07/28/25 08:00 07/28/25 08:00 07/28/25 08:00 07/28/25 08:00 07/28/25 08:00 Narrative Exam Physical Exam: GENERAL: Awake, answering questions appropriately, appears stated age HEENT: NC/AT. Moist mucosa. PERRLA, Exotropia of right eye CARDIO: Heart RRR, no obvious murmurs, no JVD. PULM: No coughing or visible SOB. Lungs CTA B/L. GI: Abdomen soft, obese and distended but nontender with borborygmi apparent. SKIN/MSK/EXT: Multiple tattoos. No wounds/discoloration/rashes/edema/amputations. +Pedal pulses present B/L. NEURO: Oriented x3, Moves extremities x4, no focal neurologic deficits noted Objective Labs 07/28/25 03:36 07/28/25 03:36 Labs: Laboratory Results - last 24 hr 07/27/25 07/27/25 07/27/25 08:58 11:06 12:26 WBC 7.5 RBC 5.58 Hgb 17.0 H Hct 48.5 MCV 87 MCH 30.5 MCHC 35.1 RDW Std Deviation 41.4 Plt Count 231 Neut % (Auto) 71 Lymph % (Auto) 20 [place] % (Auto) 5 Eos % (Auto) 3 Baso % (Auto) 1 Neut # (Auto) 5.3 Lymph # (Auto) 1.5 [place] # (Auto) 0.4 Eos # (Auto) 0.2 Baso # (Auto) 0.0 Immature Gran # (Auto) 0.02 H Absolute Nucleated RBC 0.00 Immature Gran % 0 Nucleated RBC % 0 PT 10.0 INR 0.9 APTT 23.6 Sodium 139 Potassium 4.9 Chloride 103 Carbon Dioxide 27.7 Anion Gap 8 BUN 15 Creatinine 1.2 Estim Creat Clear Calc 80.3 eGFR > 60 BUN/Creatinine Ratio [address] Glu mg/dL Hemoglobin A1c Calculated Osmolality 291 Calcium 9.8 Corrected Calcium 9.8 Total Bilirubin 0.4 AST 20 ALT 34 Alkaline Phosphatase 79 Troponin I 0.378 H* D 0.634 H* D Total Protein 7.5 Albumin 5.2 H Globulin 2.3 Albumin/Globulin Ratio 2.3 H Triglycerides Cholesterol LDL Cholesterol, Calc HDL Cholesterol Cholesterol/HDL Ratio TSH 07/27/25 07/27/25 07/27/25 15:27 18:35 19:38 WBC RBC Hgb Hct MCV MCH MCHC RDW Std Deviation Plt Count Neut % (Auto) Lymph % (Auto) [place] % (Auto) Eos % (Auto) Baso % (Auto) Neut # (Auto) Lymph # (Auto) [place] # (Auto) Eos # (Auto) Baso # (Auto) Immature Gran # (Auto) Absolute Nucleated RBC Immature Gran % Nucleated RBC % PT 10.4 INR 1.0 APTT 26.9 29.4 Sodium Potassium Chloride Carbon Dioxide Anion Gap BUN Creatinine Estim Creat Clear Calc eGFR BUN/Creatinine Ratio Glucose Estimated Ave Glu mg/dL Hemoglobin A1c Calculated Osmolality Calcium Corrected Calcium Total Bilirubin AST ALT Alkaline Phosphatase Troponin I 1.004 H* D 0.826 H* Total Protein Albumin Globulin Albumin/Globulin Ratio Triglycerides Cholesterol LDL Cholesterol, Calc HDL Cholesterol Cholesterol/HDL Ratio TSH 07/28/25 03:36 WBC 10.3 RBC 5.25 Hgb 16.0 Hct 45.8 MCV 87 MCH 30.5 MCHC 34.9 RDW Std Deviation 41.1 Plt Count 222 Neut % (Auto) 68 Lymph % (Auto) 24 [place] % (Auto) 5 Eos % (Auto) 2 Baso % (Auto) 0 Neut # (Auto) 7.0 Lymph # (Auto) 2.5 [place] # (Auto) 0.6 Eos # (Auto) 0.2 Baso # (Auto) 0.0 Immature Gran # (Auto) 0.03 H Absolute Nucleated RBC 0.00 Immature Gran % 0 Nucleated RBC % 0 PT INR APTT 45.3 H D Sodium 141 Potassium 4.0 D Chloride 108 H Carbon Dioxide 25.9 Anion Gap 7 BUN 18 Creatinine 1.0 Estim Creat Clear Calc 96.4 eGFR > 60 BUN/Creatinine Ratio 18 [address]ucose [address] Glu mg/dL 226 H Hemoglobin A1c 9.5 H Calculated Osmolality 286 Calcium 9.4 Corrected Calcium 9.4 Total Bilirubin 0.4 AST 23 ALT 27 Alkaline Phosphatase 67 Troponin I Total Protein 6.8 Albumin 4.8 Globulin 2.0 L Albumin/Globulin Ratio 2.4 H Triglycerides 254 H Cholesterol 226 H LDL Cholesterol, Calc 136 H HDL Cholesterol 39 L Cholesterol/HDL Ratio 5.8 TSH 0.58 Quality Measures Quality Measures VTE prophylaxis Assessment & Plan Assessment Current Active Medications: Generic Name Dose Route Start Last Admin Trade Name Freq PRN Reason Stop Dose Admin Aspirin 81 mg 07/28/25 09:00 07/28/25 09:06 Aspirin Ec 81 Mg Tabec PO 08/27/25 08:59 Not Given QDAY [facility] Atorvastatin Calcium 40 mg 07/28/25 21:00 Atorvastatin Calcium 20 Mg Tablet PO 08/27/25 20:59 HS [facility] Clopidogrel Bisulfate 75 mg 07/28/25 09:00 07/28/25 09:06 Clopidogrel Bisulfate 75 Mg Tablet PO 08/27/25 08:59 Not Given QDAY VICKY Dextrose 25 ml 07/27/25 14:15 Dextrose 50%-Water Inj 50 Ml Syringe IV 08/26/25 14:14 Q15MIN PRN BG 50-70 responsive npo pt Dextrose 50 ml 07/27/25 14:15 Dextrose 50%-Water Inj 50 Ml Syringe IV 08/26/25 14:14 Q15MIN PRN BG <50 OR BG <70 & pt unresponsive Glucagon 1 mg 07/27/25 14:15 Glucagon Inj 1 Mg Vial IM Q15MIN PRN BG <70, and no IV access Heparin Sodium/Dextrose 25,000 unit in 250 mls @ 12.045 mls/hr 07/27/25 12:15 07/28/25 04:14 Heparin In D5w Ivpb IV 08/10/25 12:14 15.38 units/kg/hr .[id number] [facility] 16.394 mls/hr Protocol Titration 11.3 UNITS/KG/HR Sodium Chloride 500 mls @ 150 mls/hr 07/28/25 09:01 Ns 0.45% IV 07/28/25 12:20 .Q3H20M ONE Insulin Human Lispro 0 unit 07/27/25 17:00 07/28/25 07:31 Insulin Lispro (Admelog) 1 Unit/0.01 Ml Unit SC 08/26/25 16:59 Not Given ACHS [facility] Protocol Metoprolol Tartrate 25 mg 07/27/25 21:00 07/27/25 20:25 Metoprolol Tartrate 25 Mg Tablet PO 08/26/25 20:59 Not Given BID [facility] Nitroglycerin 0.4 mg 07/27/25 11:19 Nitroglycerin 0.4 Mg Subl Btl #25 SL Q5MIN PRN CHEST PAIN Pantoprazole Sodium 40 mg 07/28/25 09:00 Pantoprazole Inj 40 Mg Vial IVP 08/27/25 08:59 QDAY [facility] Sennosides 1 tab 07/28/25 09:00 Senna Tablet PO 08/27/25 08:59 QDAY [facility] Protocol Plan 60-year-old male with past medical history of hypertension, tobacco dependence with greater than [id number] history, hyperlipidemia, col-woyjqvv-uyauyokkn type 2 diabetes, obesity, chronic pain and loss of right eye vision secondary to a traumatic fall years ago presenting with substernal chest pain which apparently started about 1 week ago will be admitted for ACS workup, NSTEMI type I with cardiology referral and left heart catheterization on IV heparin drip. #ACS #NSTEMI type I #Elevated troponin #Hyperlipidemia As noted above in the HPI, patient is presenting with typical chest pain ASCVD risk score of 27%, requires high intensity statin Denise score of 82 - 2?% Probability of from admission to 6 months Patient has multiple risk factors for ACS including poorly controlled blood pressure, hyperlipidemia, [id number]-oxpivjshx type 2 diabetes, smoking history, obesity Patient presenting with substernal chest pain found to have elevated troponin as noted above Echo largely normal with EF of 55 to 60% but mild eccentric hypertrophy noted. Left heart catheterization shows greater than 90% stenosis of the proximal RCA which was stented but otherwise rest of C largely negative for significant CAD Plan: Monitor in telemetry DAPT with aspirin and Plavix Switch to metoprolol succinate 25 mg p.o. daily; HOLD if HR is less than 70 PRN nitroglycerin q5min up to three doses max High-intensity statin HS Keep magnesium greater than 2.0 and potassium greater than 4.0 Follow-up with cardiology within 1 week of discharge #Hypertension Patient appears to be on losartan 50 mg p.o. daily Plan: Restarted patient's losartan 50 mg p.o. daily Monitor blood pressure closely #Elk-tbiarkx-ghrjjgkda type 2 diabetes #Loss of right eye vision, exotropia #Chronic pain, back lumbar region #Tobacco dependence #Marijuana use disorder As managed by primary hospitalist team Patient seen and assessed with attending Dr. Billy Mayberry, DO PGY-2 Internal Medicine - [facility]
[2025-07-28] MEDS: SODIUM CHLORIDE 0.45 % 500 ML 150 ML IV (09:14)
--- NOTE | 2025-07-28 10:42 | PC.NURSE ---
0914 patient is awake, alert, breathing unlabored, s/p C with PCI, TR band to right wrist, no bleeding or hematoma noted, report received from Dillon RETSREPO, patient to recover until TR band off. Heparin drip to be discontinued, may resume aspirin and plavix scheduled dose tomorrow. 0930 patient eating breakfast food tray 1000 patient done eating, no nausea or vomiting, pt requesting medication for acid reflex, will get protonix from pharmacy. 1025 protonix IV and senna PO given
[2025-07-28 10:55] LABS: ACT (CATH LAB ONLY) 257.0 Seconds (89-169)
[2025-07-28] MEDS: INSULIN LISPRO (AdmeLOG) 1 UNIT/0.01 ML UNIT SC (12:33)
--- NOTE | 2025-07-28 12:36 | PC.NURSE ---
1107 2ml air removed from Tr band since hemostasis time 09 1155 Tr band removed, no bleeding or hematoma noted, site covered with tegaderm and coban 1210 patient is awake, alert, breathing unlabored, dressing to right wrist dry with no bleeding or hematoma, report given to Sussy RESTREPO, patient transferred back to room 278 with tele box.
--- NOTE | 2025-07-28 12:52 | PD.RESPRO ---
Documentation for date of: 07/28/25 Subjective Subjective Interval history: No acute overnight events, the patient is currently in the [facility] for left heart catheterization. Will check on patient after return to room. Exam Vital Signs Temp Pulse Resp BP Pulse Ox O2 Del Method 97.5 F 64 20 147/82 H 96 Room Air 07/28/25 10:30 07/28/25 12:00 07/28/25 12:00 07/28/25 12:00 07/28/25 12:00 07/28/25 12:00 Narrative Exam General: Alert, oriented, in no acute distress HEENT: PERRL, EOMI, no scleral icterus Neck: No JVD, no lymphadenopathy Cardiac: Regular rate and rhythm; normal S1, S2; no murmurs or rubs Lungs: Clear to auscultation bilaterally; no wheezing or crackles Abdomen: Soft, non-tender, non-distended, normoactive bowel sounds Extremities: No edema; peripheral pulses palpable Neuro: Alert and oriented ?3; no focal deficits Skin: Warm, dry, intact Objective Labs 07/28/25 03:36 07/28/25 03:36 Labs: Laboratory Results - last 24 hr 07/27/25 07/27/25 07/27/25 12:26 15:27 18:35 WBC RBC Hgb Hct MCV MCH MCHC RDW Std Deviation Plt Count Neut % (Auto) Lymph % (Auto) [place] % (Auto) Eos % (Auto) Baso % (Auto) Neut # (Auto) Lymph # (Auto) [place] # (Auto) Eos # (Auto) Baso # (Auto) Immature Gran # (Auto) Absolute Nucleated RBC Immature Gran % Nucleated RBC % PT 10.0 10.4 INR 0.9 1.0 APTT 23.6 26.9 Activated Clotting Time Sodium Potassium Chloride Carbon Dioxide Anion Gap BUN Creatinine Estim Creat Clear Calc eGFR BUN/Creatinine Ratio Glucose Estimated Ave Glu mg/dL Hemoglobin A1c Calculated Osmolality Calcium Corrected Calcium Total Bilirubin AST ALT Alkaline Phosphatase Troponin I 1.004 H* D Total Protein Albumin Globulin Albumin/Globulin Ratio Triglycerides Cholesterol LDL Cholesterol, Calc HDL Cholesterol Cholesterol/HDL Ratio TSH 07/27/25 07/28/25 07/28/25 19:38 03:36 08:59 WBC 10.3 RBC 5.25 Hgb 16.0 Hct 45.8 MCV 87 MCH 30.5 MCHC 34.9 RDW Std Deviation 41.1 Plt Count 222 Neut % (Auto) 68 Lymph % (Auto) 24 [place] % (Auto) 5 Eos % (Auto) 2 Baso % (Auto) 0 Neut # (Auto) 7.0 Lymph # (Auto) 2.5 [place] # (Auto) 0.6 Eos # (Auto) 0.2 Baso # (Auto) 0.0 Immature Gran # (Auto) 0.03 H Absolute Nucleated RBC 0.00 Immature Gran % 0 Nucleated RBC % 0 PT INR APTT 29.4 45.3 H D Activated Clotting Time 257.0 H Sodium 141 Potassium 4.0 D Chloride 108 H Carbon Dioxide 25.9 Anion Gap 7 BUN 18 Creatinine 1.0 Estim Creat Clear Calc 96.4 eGFR > 60 BUN/Creatinine Ratio 18 [address] Glu mg/dL 226 H Hemoglobin A1c 9.5 H Calculated Osmolality 286 Calcium 9.4 Corrected Calcium 9.4 Total Bilirubin 0.4 AST 23 ALT 27 Alkaline Phosphatase 67 Troponin I 0.826 H* Total Protein 6.8 Albumin 4.8 Globulin 2.0 L Albumin/Globulin Ratio 2.4 H Triglycerides 254 H Cholesterol 226 H LDL Cholesterol, Calc 136 H HDL Cholesterol 39 L Cholesterol/HDL Ratio 5.8 TSH 0.58 Quality Measures Quality Measures VTE prophylaxis Assessment & Plan Assessment Current Active Medications: Generic Name Dose Route Start Last Admin Trade Name Freq PRN Reason Stop Dose Admin Aspirin 81 mg 07/28/25 09:00 07/28/25 09:06 Aspirin Ec 81 Mg Tabec PO 08/27/25 08:59 Not Given QDAY VICKY Atorvastatin Calcium 40 mg 07/28/25 21:00 Atorvastatin Calcium 20 Mg Tablet PO 08/27/25 20:59 HS [facility] Clopidogrel Bisulfate 75 mg 07/28/25 09:00 07/28/25 09:06 Clopidogrel Bisulfate 75 Mg Tablet PO 08/27/25 08:59 Not Given QDAY VICKY Dextrose 25 ml 07/27/25 14:15 Dextrose 50%-Water Inj 50 Ml Syringe IV 08/26/25 14:14 Q15MIN PRN BG 50-70 responsive npo pt Dextrose 50 ml 07/27/25 14:15 Dextrose 50%-Water Inj 50 Ml Syringe IV 08/26/25 14:14 Q15MIN PRN BG <50 OR BG <70 & pt unresponsive Glucagon 1 mg 07/27/25 14:15 Glucagon Inj 1 Mg Vial IM Q15MIN PRN BG <70, and no IV access Insulin Human Lispro 0 unit 07/27/25 17:00 07/28/25 12:33 Insulin Lispro (Admelog) 1 Unit/0.01 Ml Unit SC 08/26/25 16:59 4 unit ACHS [facility] Administration Protocol Losartan Potassium 50 mg 07/29/25 09:00 Losartan Potassium 25 Mg Tablet PO 08/28/25 08:59 QDAY [facility] Metoprolol Succinate 25 mg 07/29/25 09:00 Metoprolol Succinate Xl 25 Mg Tabcr PO 08/28/25 08:59 QDAY [facility] Nitroglycerin 0.4 mg 07/27/25 11:19 Nitroglycerin 0.4 Mg Subl Btl #25 SL Q5MIN PRN CHEST PAIN Pantoprazole Sodium 40 mg 07/29/25 09:00 Pantoprazole 40 Mg Tablet PO 08/28/25 08:59 QDAY [facility] Protocol Sennosides 1 tab 07/28/25 09:00 07/28/25 10:24 Senna Tablet PO 08/27/25 08:59 1 tab QDAY [facility] Administration Protocol Plan 60-year-old male with a history of hypertension, hyperlipidemia, type 2 diabetes, and chronic pain, presenting with recurrent substernal chest pain, elevated troponins, and downtrending levels, concerning for NSTEMI, currently undergoing left heart catheterization. #ACS #NSTEMI type I #Elevated troponin The patient has typical chest pain, elevated troponin, and risk factors consistent with NSTEMI. EKG showed no ST depressions or T wave inversions. The troponin levels are downtrending, but ACS remains a concern. Plan: Continue monitoring in telemetry; follow up on catheterization results. Follow-up on cardiac recommendations. Administer nitroglycerin PRN (q5min up to 3 doses) as needed. Beta-blockade with Metoprolol 25 mg BID (hold if HR <70). Continue Aspirin 81 mg daily and Plavix 75 mg daily. High-intensity statin therapy for lipid control. # Essential hypertension Stable on home medications. Pending med rec's Plan: Continue home meds once med rec's are back Monitor blood pressure closely, adjust medications as needed. Continue routine BP checks. # Hyperlipidemia Lipid panel shows elevated triglycerides (254) and LDL (136). Plan: Continue Atorvastatin 40 mg daily. Monitor lipid panel while inpatient. # Type 2 Diabetes Mellitus, insulin-independent Type 2 diabetes, poorly controlled in the context of acute illness. Plan: Hold Metformin and Jardiance while inpatient. Initiate Sliding Scale Insulin (SSI) for glucose control. Ordered A1c in a.m. Monitor blood glucose AC/HS. ----- Plan discussed with attending physician Dr. Hager and senior resident Dr. Hedy Mayer MD PGY-1 Internal Medicine
--- NOTE | 2025-07-28 16:28 | ESDS_ITS ---
<Statement entered by Sea Hager MD - 08/10/25 07:57> I reviewed above note and agree with findings and plans. I have also personally examined the patient with medicine team and went over assessment and plan with medical team including help desk intern and resident physician. <Statement entered by Liz Knott MD - 07/29/25 09:23> Patient was seen and examined by me personally. I have directly supervised and reviewed documentation by the team resident and agree with its findings with any exceptions or additional findings as below. Plan of care was discussed with the attending, Dr. Hager. Liz Knott, PGY-3 Planned Discharge Date 07/28/25 DS: Providers Provider Date of admission: 07/27/25 12:07 Primary care physician: ALBERTO Fernandez Admitting Provider: Sea Hager MD Attending Provider on Admission: Sea Hager MD Consults: 07/27/25 11:36 Consult to Cardiology Stat Comment: Consulting Provider: Adilia Cervantes 07/27/25 14:16 Referral Registered Dietitian Routine Comment: 07/27/25 16:31 [facility] Referral - Knowledge Deficit Routine Comment: Positive screening for knowledge deficit needs. [facility] Referral - Nutrition Routine Comment: Positive screening for nutrition needs. [facility] Referral - Transportation Routine Comment: Positive screening for transportation needs. [facility] Referral - Utilities Routine Comment: Positive screening for utility assistance needs. Attending Provider on DC: Sea Hager MD Discharging Provider: Glenna Mayer MD DS: Diagnosis Problem List Completed Was Problem List Reviewed/Reconciled?: Yes Hospital Course Hospital Course Hospital course: 60-year-old male with a past medical history of hypertension, hyperlipidemia, type 2 diabetes, and chronic pain, who was admitted for recurrent chest pain and elevated troponins, concerning for NSTEMI. Upon admission, the patient was placed on telemetry for monitoring, received IV heparin and DAPT (aspirin and Plavix), and started on beta-jordon therapy. The patient underwent a left heart catheterization which revealed greater than 90% stenosis of the proximal RCA. A successful PCI with stent placement was performed, resulting in revascularization of the affected area. The LAD and LCx were largely unremarkable, with no significant stenosis. For a more com prehensive assessment, the operative note from the catheterization is available. The patient was started on appropriate medical management including DAPT, high- intensity statin therapy, and beta-blockers. The patient's troponin levels were initially elevated but showed a downtrend, and the patient was monitored closely throughout his hospital course. After a successful PCI and stabilization, the patient was cleared for discharge from a cardiology standpoint with instructions for close follow-up. Diagnosis during admission: #NSTEMI #Hypertension #Hyperlipidemia #Type 2 Diabetes Mellitus (Poorly Controlled) #Chronic Pain Syndrome #Obesity Discharge instructions: -Follow up with PCP within 1 week of discharge -Follow up with Cardiology within 1 week of discharge -Take aspirin 81 mg once daily (blood thinner) to prevent stent closure -Take clopigodrel 75 mg once daily (blood thinner) to prevent stent closure -Continue your gemfibrozil 600 mg once daily to treat high cholesterol - please ask your doctor about alternatives since you have had a reaction to statins in the past and your cholesterol is still high. -Take metoprolol succinate 25 mg once daily to slow heart rate and lower blood pressure -Continue rest of medications as previously prescribed -Return to the ED or call EMS if symptoms return and/or worsen. ----- Plan discussed with attending physician Dr. Hager and senior resident Dr. Hedy Mayer MD PGY-1 Internal Medicine Time Spent with Patient Time attestation: Total time spent providing and/or coordinating discharge services: Time spent: Greater than 30 minutes Exam Vital Signs Temp Pulse Resp BP Pulse Ox O2 Del Method 97.5 F 64 20 147/82 H 96 Room Air 07/28/25 10:30 07/28/25 12:01 07/28/25 12:00 07/28/25 12:00 07/28/25 12:00 07/28/25 12:00 Narrative Exam GENERAL: Awake, answering questions appropriately, appears stated age HEENT: NC/AT. Moist mucosa. PERRLA, Exotropia of right eye CARDIO: Heart RRR, no obvious murmurs, no JVD. PULM: No coughing or visible SOB. Lungs CTA B/L. GI: Abdomen soft, obese and distended but nontender with borborygmi apparent. SKIN/MSK/EXT: Multiple tattoos. No wounds/discoloration/rashes/edema/amputations. +Pedal pulses present B/L. NEURO: Oriented x3, Moves extremities x4, no focal neurologic deficits noted Discharge Plan Plan Patient Disposition: HOME (Self Care) Patient condition on transfer: Stable Care Plan Goals: Discharge Recommendations: -Follow up with PCP within 1 week of discharge -Follow up with Cardiology within 1 week of discharge -Take aspirin 81 mg once daily (blood thinner) to prevent stent closure -Take clopigodrel 75 mg once daily (blood thinner) to prevent stent closure -Continue your gemfibrozil 600 mg once daily to treat high cholesterol - please ask your doctor about alternatives since you have had a reaction to statins in the past and your cholesterol is still high. -Take metoprolol succinate 25 mg once daily to slow heart rate and lower blood pressure -Continue rest of medications as previously prescribed -Return to the ED or call EMS if symptoms return and/or worsen. Prescriptions/Referrals Prescriptions/Med Rec: New aspirin 81 mg Tablet,Delayed Release (Dr/Ec) 81 mg PO QDAY 30 Days Qty: 30 2RF clopidogrel 75 mg Tablet 75 mg PO QDAY 30 Days Qty: 30 2RF metoprolol succinate 25 mg Tablet Extended Release 24 Hr 25 mg PO QDAY 30 Days Qty: 30 2RF gemfibrozil 600 mg tablet 600 mg PO QDAY 30 Days Qty: 30 0RF Continued metformin [Glucophage] 1,000 MG tablet 1,000 mg PO BID Qty: 0 magnesium citrate [Citrate of Magnesia] Solution 300 ml PO QDAY PRN (Reason: constipation) Qty: 296 0RF losartan 50 mg tablet 50 mg PO QDAY Patient Comments: TAKE ONE TABLET BY MOUTH EVERY DAY FOR BLOOD PRESSURE hydrocodone-acetaminophen 10-325 mg tablet 1 tab PO TID PRN (Reason: Pain) Patient Comments: TAKE ONE TABLET BY MOUTH THREE TIMES DAILY NEEDED FOR PAIN omeprazole 40 mg capsule,delayed release(DR/EC) 40 mg PO QDAY Patient Comments: TAKE ONE CAPSULE BY MOUTH EVERY MORNING 30 MINUTES BEFORE BREAKFAST GASTRIC ACIDITY AND HEARTBURN albuterol sulfate 90 mcg/actuation HFA aerosol inhaler 2 puff INHALATION Q4H PRN (Reason: Shortness Of Breath Or Wheezing) Patient Comments: INHALE TWO PUFFS BY MOUTH EVERY 4 HOURS NEEDED FOR BREATHING AND SHORTNESS OF BREATH Januvia 100 mg tablet 100 mg PO QDAY Patient Comments: TAKE ONE TABLET BY MOUTH EVERY DAY FOR DIABETES Jardiance 25 mg tablet 25 mg PO QDAY Patient Comments: TAKE ONE TABLET BY MOUTH EVERY DAY FOR DIABETES Discontinued gemfibrozil [Lopid] 600 MG tablet 600 mg PO BID Qty: 0 Referrals: Joby Lewis FNP [Primary Care Provider] Adilia Cervantes MD [Physician, Cardiology] - 08/04/25 Referral Note: Follow up NSTEMI s/p cardiac cath and PCI Patient/Caregiver Discharge Instructions Discharge Activity: as per the cardiac rehab Education Materials: Troponin, Coronary Stents, Cardiac Catheterization Dc, Heart Attack Dc, Warning Signs of a Heart Attack, Heart Attack Questions, Your Recovery Plan, Heart Attack: Leaving the Hospital, Heart Attack: Back at Home, Angioplasty and Stent Placement for the Heart Print Language: Icelandic Stand Alone Forms: Monica Award Info., Patient Portal Info Letter Discharge Order Discharge Orders: Discharge (Routine); Ordered 07/28/25 Ordered By: Liz Knott Quality Discharge Quality Measures VTE prophylaxis
--- NOTE | 2025-07-28 17:48 | PC.NURSE ---
Patient states his home meds are locked in his safe at home and he has his patel around his neck as a necklace. SO brought in medication list from pharmacy but it was not accurate. Asked patient if someone could help bring his home meds and he stated he would try. Patient went home at 1653 and did not bring home meds.
--- NOTE | 2025-07-30 22:37 | ESOP_ITS ---
RE: FRANKLYN SOLIZ : 1965 DATE OF OPERATION: 07/28/2025 DATE OF PROCEDURE: 07/28/2025. PROCEDURES PERFORMED: 1. Diagnostic emergency left heart cardiac catheterization, selective coronary angiogram, left ventricular angiogram, CPT 06338. 2. Percutaneous coronary intervention primary angioplasty stent placement of the right coronary artery placed a drug-eluting stent 3.0 x 15 mm [place] Medtronic drug-eluting stent, CPT 90789 with the diagnosis acute myocardial infarction. 3. Ultrasound-guided access to right radial artery. 4. Conscious sedation 1 hour duration. DIAGNOSES: 1. Coronary artery disease. 2. Acute myocardial infarction. CHIEF COMPLAINT, HISTORY AND INDICATIONS: The patient is a 60-year-old male with a history of hypercholesterolemia, hypertension, type 2 diabetes mellitus, and multiple risk factors for CAD. Came to us with severe crushing chest pain found to have acute myocardial infarction and troponin elevation, classic chest pain with troponin elevation. Continued to have chest pain on heparin and aspirin, recommended coronary angiogram, PCI stent placement primary angioplasty for acute myocardial infarction. PROCEDURE DETAILS: The patient brought to cardiac catheterization laboratory given 2 mg of Versed and 50 mcg fentanyl for conscious sedation. Right radial approach was taken. Right radial artery cannulated with micropuncture technique. A 6-Malay Glidesheath introduced. Selective right and left coronary angiogram, left heart catheterization, LV angiogram performed by 5-Malay TIG 4 diagnostic catheter. The patient tolerated the procedure well, no complications. FINDINGS: The diagnostic procedure showed the following findings: The left ventricular pressures 100/4, EDP 10. Aortic pressure 100/10. No gradient across the aortic valve.. Left ventricular angiogram showed normal left ventricular wall motion, ejection fraction of 60%. Coronary angiogram showed following findings: Right coronary artery showed evidence of 95% stenosis in the proximal right coronary artery, culprit lesion . Left main coronary is normal. Left anterior descending artery and circumflex artery are free of disease. Left ventricular angiogram showed normal left ventricular wall motion, EF 65%. Following diagnostic procedure, intervention was undertaken. Patient given IV heparin, additional heparin, total of 7000 units. ACT was therapeutic. Proceeded with PCI. Right coronary artery cannulated using a FR4 guiding catheter. Ru thru 0.014 guidewire was used to cross the lesion successfully. Predilation of the lesion performed by 2.5 mm Medtronic balloon subsequently, a 3.0 x 15 mm [place] Medtronic drug-eluting stent, was deployed successfully with 2 inflations, 0% residual stenosis. Final angiogram showed widely patent right coronary artery, no residual stenosis. SUMMARY: Acute vra-OC-qdyiqpu elevation myocardial infarction, underwent successful PCI stent placement right coronary artery proximal RCA. Pre-procedure stenosis 99%, post- procedure 0%. JAE flow pre-procedure 3, post-procedure 3. Complications, none. RECOMMENDATIONS: The patient will be continued on aspirin and Plavix and will be discharged home possibly within 24 hours. We will have a followup as an outpatient. DT: 21:33:43 TT: 22:35:00 Ref: [id number] - TID: [id number] [facility]ENTER[facility]
--- NOTE | 2025-07-31 14:00 | ESOP_ITS ---
RE: FRANKLYN SOLIZ : 1965 DATE OF OPERATION: 07/28/2025 PROCEDURES PERFORMED: 1. Emergency diagnostic left heart cardiac catheterization, selective coronary angiogram, left ventricular angiogram, CPT 54729. 2. Primary angioplasty, PCI, stent placement of the right coronary artery infarct vessel with NSTEMI. PCI and stent placement using drug-eluting stent 3.0 x 15 mm [place] Medtronic stent. Preprocedure stenosis 95%, postprocedure stenosis 0%. Preprocedure JAE flow 3, postprocedure JAE flow 3. 3. Ultrasound-guided access right radial artery. 4. Conscious sedation for 1 hour 40 minute duration. DIAGNOSES: Coronary artery disease, acute myocardial infarction, acute tqf-MA-qzddfgk elevation myocardial infarction, troponin elevation. HISTORY AND INDICATIONS: The patient is a 60-year-old male with history of multiple risk factors for CAD, hypertension, smoking, hypercholesterolemia, episodes of recurrent substernal chest tightness and heaviness, came to the hospital with acute myocardial infarction with elevated troponin levels. Continued to have chest pain, hence emergency coronary angiogram, cardiac enzymes recommended for possible PCI intervention. PROCEDURE DETAILS: Patient brought to cardiac catheterization laboratory where he was given 2 mg Versed, 50 mcg of fentanyl for sedation. Right radial approach was taken. Right radial artery was cannulated with micropuncture technique. Ultrasound guidance was used and a 6- Chinese Glidesheath was introduced. Radial cocktail was given. A diagnostic selective right and left coronary angiogram, left heart catheterization, left ventricular angiogram performed by 5-Chinese TIG 4 diagnostic catheter. Diagnostic procedure showed following findings: Right coronary artery large and dominant, showed evidence of 95-99% stenosis in the proximal right coronary artery, culprit lesion. Distal RCA normal. Left circumflex, left main coronary artery, LAD showed calcification, mild plaque, no significant stenosis. Left circumflex artery is nondominant artery, normal. Left ventricular angiogram showed normal left ventricular wall motion, ejection fraction 65%. Left ventricular pressures were recorded to be 112/40, EDP is 15. Aortic pressure 114/60. No gradient across the aortic valve. Following diagnostic procedure, intervention was undertaken. PCI details are as follows. Patient was given additional heparin total 7000 units. ACT is therapeutic. Aspirin, Plavix loading dose given subsequently. Right coronary artery cannulated with FR4 guiding catheter. A 0.014 Run[place] guidewire was used to cross the lesion successfully. Pre-dilation performed by 2.5 mm Medtronic balloon. Subsequently following angioplasty, stenting was performed using a 3.0 x 15 mm [place] Medtronic stent, was deployed in the right coronary artery with few inflations, 14 atmospheric pressures, excellent angiographic result. Final angiogram showed evidence of 0% residual stenosis, JAE flow 3. SUMMARY OF FINDINGS: Acute myocardial infarction secondary to right coronary artery occlusion. Underwent successful PCI stent placement. Primary angioplasty stent placed in the right coronary artery with excellent angiographic results. The pre-procedure stenosis was 95%, post-procedure stenosis was 0%. COMPLICATIONS: Zero. BLOOD LOSS: Zero. RECOMMENDATIONS: Continue aspirin, Plavix, dual antiplatelet drug therapy. Patient will be transferred back to telemetry in stable condition. cc: Adilia Cervantes MD DT: 09:12:45 TT: 10:26:00 Ref: [id number] - TID: [id number]
== END 2025-07-28 16:53 | disposition home or self-care (01) | DRG 174 ==
LOC: SERX 09:29 → SERHOLD 07-28 05:43 → S2NX 07-28 05:43
PROVIDERS: Internal Medicine Cardiovascular Disease; Nurse Practitioner Primary Care; Admitting Provider Internal Medicine; Emergency Provider Family Medicine; Visit Provider Internal Medicine
PROC: 4A023N7 Measurement of Cardiac Sampling and Pressure, Left Heart, Percutaneous Approach (ICD-10-PCS; principal; 2025-07-28 08:30)
DX: I21.11 ST elevation (STEMI) myocardial infarction involving right coronary artery (principal); E78.5 Hyperlipidemia, unspecified; I10 Essential (primary) hypertension; F17.200 Nicotine dependence, unspecified, uncomplicated; J44.9 Chronic obstructive pulmonary disease, unspecified; E11.65 Type 2 diabetes mellitus with hyperglycemia; E78.00 Pure hypercholesterolemia, unspecified; F12.10 Cannabis abuse, uncomplicated; G89.4 Chronic pain syndrome; I25.10 Atherosclerotic heart disease of native coronary artery without angina pectoris; E66.9 Obesity, unspecified; Z79.02 Long term (current) use of antithrombotics/antiplatelets; Z79.82 Long term (current) use of aspirin; Z79.84 Long term (current) use of oral hypoglycemic drugs; Z79.899 Other long term (current) drug therapy
CPT/HCPCS: 36415; 71045; 80053; 80061; 83036; 84443; 84484; 85025; 85347; 85610; 85730; 93005; 93306; 94640; 96374; 96375; 96376; 99152; 99153; 99284; A4649; C1725; C1769; C1874; C1887; C1894; J0153; J0168; J0282; J0461; J1171; J1643; J1644; J1815; J2250; J2270; J2312; J2371; J2405; J2470; J2919; J3010; J3490; J7030; Q9967; A9270; J2305

== ENCOUNTER 2025-08-06 16:42 | Emergency (ER) | payer OTHER, SELFPAY ==
[2025-08-06 16:44] VITALS: BMI 32.1
--- NOTE | 2025-08-06 16:46 | EKG_ITS ---
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
[2025-08-06 16:52] VITALS: BP 159/86; PULSE 62; RESP 14; TEMP 36.5; O2SAT 96
--- NOTE | 2025-08-06 17:18 | PD.EDADULT ---
ED General RME/HPI General Chief complaint: Chest Pain Stated complaint: CHEST PAIN Time Seen by Provider: 08/06/25 17:14 Arrival date/time: 08/06/25 16:42 CC: Chest pain/chest pressure HPI patient presents to the ER via security officers and guards in handcuffs and shackles, stating that while lying on a concrete pad the patient woke up with left anterior chest pain/chest pressure. Within 45 minutes the chest pain is resolved but the chest pressure has remained. The patient had an Angiocath with a stent of the RCA done on July [address] Jackie Cervantes. Patient is afebrile nontoxic-appearing currently complain of chest pressure 2-3 on a 10 scale. Patient denies nausea vomiting shortness of breath or difficulty breathing. Related Data Home Medications ?Medication ?Instructions ?Recorded ?Confirmed metformin 1,000 mg tablet 1,000 mg PO BID #0 tabs 06/08/16 05/05/23 (Glucophage) albuterol sulfate 90 mcg/actuation 2 puff inhalation Q4H PRN 05/05/23 05/05/23 aerosol inhaler Shortness Of Breath Or Wheezing empagliflozin 25 mg tablet 25 mg PO QDAY 05/05/23 05/05/23 (Jardiance) hydrocodone 10 mg-acetaminophen 1 tab PO TID PRN Pain 05/05/23 05/05/23 325 mg tablet losartan 50 mg tablet 50 mg PO QDAY 05/05/23 05/05/23 omeprazole 40 mg capsule,delayed 40 mg PO QDAY 05/05/23 05/05/23 release sitagliptin phosphate 100 mg 100 mg PO QDAY 05/05/23 05/05/23 tablet (Januvia) Previous Rx's ?Medication ?Instructions ?Recorded magnesium citrate (Citrate of 300 ml PO QDAY PRN constipation 05/14/25 Magnesia oral) #296 mL aspirin 81 mg tablet,delayed 81 mg PO QDAY 30 days #30 tabs 07/28/25 release clopidogrel 75 mg tablet 75 mg PO QDAY 30 days #30 tabs 07/28/25 gemfibrozil 600 mg tablet 600 mg PO QDAY high cholesterol 30 07/28/25 days #30 tabs metoprolol succinate 25 mg 25 mg PO QDAY 30 days #30 tabs 07/28/25 tablet,extended release 24 hr Allergies Allergy/AdvReac Type Severity Reaction Status Date / Time Penicillins Allergy Severe Hives Verified 07/28/25 09:53 Review of Systems Review of Systems Narrative Review of Systems: GEN: No fever, no chills, no weight loss EYES: No discharge, no visual changes, no pain HEENT: No ear pain, no congestion, no sore throat PULM: No shortness of breath, no cough, no congestion CV: + chest pain, no dyspnea on exertion, no palpitations GI: No nausea, no vomiting, no diarrhea, no pain, no constipation : No frequency, no urgency, no dysuria MUSC/SKEL: No joint pain, no back pain SKIN: No rash PSYCH: No hallucinations, no depression HEME/LYMPH: No easy bleeding or bruising tendencies NEURO: No weakness, no headache Past Medical History Past Medical History NEUROLOGIC: Negative Neurological Disorders or Seizures CARDIAC: Positive Cardiac Disorders, Myocardial Infarction, Angina, Hypercholesterolemia and Hypertension; Negative Congestive Heart Failure RESPIRATORY: Negative Chronic Obstructive Pulmonary Disease (COPD) or Asthma GASTROINTESTINAL: Positive Gastrointestinal Disorders and Gastroesophageal Reflux Disease; Negative Hepatitis or Colorectal Cancer GENITOURINARY: Negative Genitourinary Disorders, Renal Disease, Kidney Stones, Polycystic Kidney Disease, Neurogenic Bladder, Inguinal Hernia, Dialysis, Prostate Cancer or Benign Prostatic Hyperplasia REPRODUCTIVE: Negative Testicular Cancer MUSCULOSKELETAL: Positive Musculoskeletal Disorders, Arthritis and Degenerative Joint Disease; Negative Bone Cancer ENT: Positive Blind and Deafness ENDOCRINE: Positive Endocrine Disorders and Diabetes Mellitus Type 2; Negative Diabetes Mellitus Type 1 HEMATOLOGIC: Negative Blood Disorders or Sickle Cell Disease PSYCHO/SOCIAL: Negative Psychiatric Problems, Recreational Drug Use, Bipolar Disorder, Depression, Anxiety or Behavior Problems OTHER HISTORY: Positive Chicken Pox; Negative Hospitalization, Autoimmune Disease, Down Syndrome, Developmental Delay, Shingles, Falls, Blood Transfusions, Blood Transfusion Reaction, Anesthesia Reactions, MRSA, VRSA, Vancomycin-Resistant Enterococci, Clostridium Difficile, Colorectal Cancer, Lung Cancer, Prostate Cancer or Testicular Cancer Family History FAMILY HISTORY: Positive Family Cancer; Negative Family Psychiatric Problems, Family Respiratory Disorders, Family Cardiac Disorders, Family Gastrointestinal Problems, Family Surgery or Family Anesthesia Reaction Surgical History SURGICAL: Positive Abdominal Surgery; Negative Cardiac Surgery, Endocrine Surgery, Ear Surgery, Nephrectomy, Transurethral Resection, Neurologic Surgery, Brain Shunt or Vasectomy Social History SMOKING STATUS: Current every day smoker SUBSTANCE USE: marijuana ED Exam Narrative Physical exam: [General: Obese not in any acute distress Head normocephalic HEENT: Within acceptable limits Neck is supple nontender Chest equal chest rise nontender to palpation Respiratory: Clear to auscultation no wheezes crackles or rubs CV: Rate rhythm is regular no murmurs rubs or clicks Abdomen is distended secondary to body habitus soft nontender no masses positive bowel sounds all 4 quadrants Back: No CVA tenderness no spinous process tenderness from cervical spine thoracic and lumbar spine Skin: Angiocath site at the right wrist is completely healed, no surrounding erythema or edema. Otherwise skin is intact no petechiae rash induration ulceration or crepitus Extremities: Moving all extremity against resistance cap refill less than 2 seconds neurosensory intact Neuro: Awake alert oriented x3 Glascow coma 15 no focal deficits] Course Course Course Narrative: Patient's case clinical findings laboratory results EKG discussed with Dr. Cervantes stitchdown toe former who stented this patient on July 30, and agrees patient can be discharged back to detention. Quality Measures none Orders Category Date Time Status EKG (ED ONLY) *Do not use* NOW Care 08/06/25 16:46 Completed EKG (ED Only) Stat Exams 08/06/25 16:46 Draft CBC Stat Lab 08/06/25 17:26 Completed CMP [Comprehensive Metabolic Panel] Stat Lab 08/06/25 17:26 Completed PT [Prothrombin Time with INR] Stat Lab 08/06/25 17:26 Completed PTT [Partial Thromboplastin Time] Stat Lab 08/06/25 17:26 Completed Troponin I Stat Lab 08/06/25 17:26 Completed Vital Signs Vital signs: Vital Signs Temperature 97.7 F 08/06/25 16:52 Pulse Rate 62 08/06/25 16:52 Respiratory Rate 14 08/06/25 16:52 Blood Pressure 159/86 H 08/06/25 16:52 Pulse Oximetry (%) 96 08/06/25 16:52 Oxygen Delivery Method Room Air 08/06/25 16:52 Discharge Plan Plan Patient Disposition: Fdc/Court/Law Prescriptions/Referrals Prescriptions/Med Rec: No Action metformin [Glucophage] 1,000 MG tablet 1,000 mg PO BID Qty: 0 magnesium citrate [Citrate of Magnesia] Solution 300 ml PO QDAY PRN (Reason: constipation) Qty: 296 0RF losartan 50 mg tablet 50 mg PO QDAY Patient Comments: TAKE ONE TABLET BY MOUTH EVERY DAY FOR BLOOD PRESSURE hydrocodone-acetaminophen 10-325 mg tablet 1 tab PO TID PRN (Reason: Pain) Patient Comments: TAKE ONE TABLET BY MOUTH THREE TIMES DAILY NEEDED FOR PAIN omeprazole 40 mg capsule,delayed release(DR/EC) 40 mg PO QDAY Patient Comments: TAKE ONE CAPSULE BY MOUTH EVERY MORNING 30 MINUTES BEFORE BREAKFAST GASTRIC ACIDITY AND HEARTBURN albuterol sulfate 90 mcg/actuation HFA aerosol inhaler 2 puff INHALATION Q4H PRN (Reason: Shortness Of Breath Or Wheezing) Patient Comments: INHALE TWO PUFFS BY MOUTH EVERY 4 HOURS NEEDED FOR BREATHING AND SHORTNESS OF BREATH Januvia 100 mg tablet 100 mg PO QDAY Patient Comments: TAKE ONE TABLET BY MOUTH EVERY DAY FOR DIABETES Jardiance 25 mg tablet 25 mg PO QDAY Patient Comments: TAKE ONE TABLET BY MOUTH EVERY DAY FOR DIABETES aspirin 81 mg Tablet,Delayed Release (Dr/Ec) 81 mg PO QDAY 30 Days Qty: 30 2RF clopidogrel 75 mg Tablet 75 mg PO QDAY 30 Days Qty: 30 2RF metoprolol succinate 25 mg Tablet Extended Release 24 Hr 25 mg PO QDAY 30 Days Qty: 30 2RF gemfibrozil 600 mg tablet 600 mg PO QDAY 30 Days Qty: 30 0RF Referrals: Shaggy Chandra MD [Physician, Family Practice] - In 1 week No Primary/Family,Physician [Primary Care Provider] - In 1 week Problem List Clinical Impression: Chest pain Patient/Caregiver Discharge Instructions Education Materials: ED Chest Pain, Uncertain Cause Print Language: Gabonese Stand Alone Forms: Monica Award Info. 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 Chronic Illness/Social Conditions Explain: CAD Labs Lab(s) Interpretation(s): EKG performed at 1657 shows a ventricular rate of 5 8 RI interval 188 QRS of 100 QTc of 4 1 sinus bradycardia. CBC shows no acute leukocytosis anemia thrombocytopenia CMP shows no significant electrolyte imbalances renal impairment transaminitis or T. bili elevation other than a glucose of 159. Coags within acceptable limits Troponin is less than 0.020.
[2025-08-06 17:44] LABS: Basophils # (Auto) 0.1 Thou/mm3 (0.0-0.2); Basophils % (Auto) 1 % (0-2.5); Eosinophils # (Auto) 0.3 Thou/mm3 (0.0-0.5); Eosinophils % (Auto) 4 % (0-10); Hematocrit 46.2 % (41.0-53.0); Hemoglobin 16.4 g/dL (13.5-16.0); Immature Granulocytes Auto 0.03 Thou/mm3 (0.00-0.00); Lymphocytes # (Auto) 2.1 Thou/mm3 (1.0-4.8); Lymphocytes % (Auto) 24 % (10-50); Mean Corpuscular HGB Conc 35.5 g/dl (31.0-37.0); Mean Corpuscular Hemoglobin 30.7 pg (25.0-35.0); Mean Corpuscular Volume 87 fL (80-100); Monocytes # (Auto) 0.4 Thou/mm3 (0.0-0.8); Monocytes % (Auto) 5 % (0-12); Neutrophils # (Auto) 5.9 Thou/mm3 (1.8-7.7); Neutrophils % (Auto) 67 % (37-80); Nucleated Red Blood Cell # 0.00 Thou/mm3 (0.00-0.00); Nucleated Red Blood Cell % 0 /100 WBC (0); Platelet Count 223 Thou/mm3 (140-440); RDW Standard Deviation 41.1 fL (35.1-43.9); Red Blood Count 5.34 Miln/mm3 (4.50-5.90); White Blood Count 8.8 Thou/mm3 (3.8-10.6)
[2025-08-06 18:06] LABS: INR 1.0 (0.9-1.3); Partial Thromboplastin Time 25.1 Seconds (22.0-36.0); Prothrombin Time 10.5 Seconds (9.0-12.2)
[2025-08-06 18:08] LABS: Alanine Aminotransferase 28 U/L (10-49); Albumin, Serum 4.9 gm/dL (3.4-4.8); Albumin/Globulin Ratio 2.0 (1.2-2.2); Alkaline Phosphatase 67 U/L (46-116); Anion Gap 8 (7-16); Aspartate Amino Transferase 15 U/L (0-34); BUN/Creatinine Ratio 15 Ratio (12-20); Bilirubin,Total 0.5 mg/dL (0.3-1.2); Blood Urea Nitrogen 15 mg/dL (9-23); Calcium 10.1 mg/dL (8.3-10.6); Calcium (Corrected) 10.1 mg/dL (8.5-10.1); Carbon Dioxide 25.5 mMol/L (20.0-31.0); Chloride 110 mMol/L (98-107); Creatinine (Component) 1.0 mg/dL (0.6-1.3); Estimated Creatinine Clearance 95.4 mL/min (>60); Globulin 2.5 gm/dL (2.3-3.5); Glucose 159 mg/dL (74-106); Osmolality,Calculated 288 (275-295); Potassium 4.2 mMol/L (3.4-5.1); Sodium 143 mMol/L (136-145); Total Protein 7.4 gm/dL (5.7-8.2); Troponin I < 0.020 ng/mL (0.0-0.045); eGFR > 60 See Note
--- NOTE | 2025-08-06 18:19 | PC.NURSE ---
CALL TO GIVE AN UPDATE
[2025-08-06 19:13] VITALS: BP 137/83; PULSE 65; RESP 16; O2SAT 95
== END 2025-08-06 19:14 ==
PROVIDERS: Registered Nurse General Practice; Emergency Provider Emergency Medicine
DX: R07.9 Chest pain, unspecified (principal)
CPT/HCPCS: 36415; 80053; 84484; 85025; 85610; 85730; 93005; 99282

== ENCOUNTER 2025-08-14 10:19 | Emergency (ER) | payer MEDICAID, SELFPAY ==
[2025-08-14] VITALS (9 sets, daily range): BP systolic 105–137; BP diastolic 65–78; PULSE 51–69; RESP 15–24; TEMP 36.4–36.7; O2SAT 93–98; BMI 32.1
--- NOTE | 2025-08-14 10:23 | EKG_ITS ---
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
--- NOTE | 2025-08-14 10:37 | EDNOTE_ITS ---
ED Chest Pain RME/HPI General Chief Complaint: Chest Pain Stated Complaint: CHEST PAIN SINCE 4AM Time Seen by Provider: 08/14/25 10:45 Arrival date/time: 08/14/25 10:19 Limitations: no limitations RME / HPI RME / HPI narrative: 60 year old male with history of hypertension, diabetes, hyperlipidemia, recurring chest pain, s/p left heart catheterization with stent placement (07/28/2025) presents to the ED for evaluation of left-sided chest pain beginning this morning. Described as aching pressure in sensation, rating 7/10 in severity. Accompanied by his left arm feeling weird and shortness of breath. Patient additionally complains of body aches and a throbbing headache. States he took his usual medications this morning (which includes 81mg ASA) with no change in symptoms. Denies fevers, chills, cough, abdominal pain, n/v/d, or urinary symptoms. No known modifying or aggravating factors. Denies use of blood thinners. Related Data Home Medications ?Medication ?Instructions ?Recorded ?Confirmed metformin 1,000 mg tablet 1,000 mg PO BID #0 tabs 05/2205/05/23 (Glucophage) albuterol sulfate 90 mcg/actuation 2 puff inhalation Q 4H PRN 05/05/23 05/05/23 aerosol inhaler Shortness Of Breath Or Wheez ing empagliflozin 25 mg tablet 25 mg PO QDAY 05/05/2304/21 (Jardiance) hydrocodone 10 mg-acetaminophen 1 tab PO TID PRN Pain 05/05/23 05/05/23 325 mg tablet losartan 50 mg tablet 50 mg PO QDAY 05/05/2305/05 omeprazole 40 mg capsule,delayed 40 mg PO QDAY 3 05/05/23 release sitagliptin phosphate 100 mg 100 mg PO QDAY 05/05/23 0 05/05/23 tablet (Januvia) Previous Rx's ?Medication ?Instructions ?Recorded magnesium citrate (Citrate of 300 ml PO QDAY PRN const ipation 05/14/25 Magnesia oral) #296 mL aspirin 81 mg tablet,delayed 81 mg PO QDAY 30 days #30 tabs 07/28/25 release clopidogrel 75 mg tablet 75 mg PO QDAY 30 days #30 ta bs 07/28/25 gemfibrozil 600 mg tablet 600 mg PO QDAY high choleste rol 30 07/28/25 days #30 tabs metoprolol succinate 25 mg 25 mg PO QDAY 30 days #30 t abs 07/28/25 tablet,extended release 24 hr Allergies Allergy/AdvReac Type Severity Reaction Status Date / Time Penicillins Allergy Severe Hives Verified 08/14/25 10:21 Review of Systems Review of Systems Systems Reviewed: All systems reviewed, normal except as documented Past Medical History Past Medical History CARDIAC: Positive Cardiac Disorders, Myocardial Infarction, Angina, Hypercholesterolemia and Hypertension GASTROINTESTINAL: Positive Gastrointestinal Disorders and Gastroesophageal Reflux Disease MUSCULOSKELETAL: Positive Musculoskeletal Disorders, Arthritis and Degenerative Joint Disease ENT: Positive Blind and Deafness ENDOCRINE: Positive Endocrine Disorders and Diabetes Mellitus Type 2 OTHER HISTORY: Positive Chicken Pox Family History FAMILY HISTORY: Positive Family Cancer Surgical History SURGICAL: Positive Abdominal Surgery Social History SMOKING STATUS: Current every day smoker SUBSTANCE USE: marijuana ED Exam General Limitations: Present no limitations General appearance: Present alert and other (Appears uncomfortable) Head Head exam: Present atraumatic, normocephalic and normal inspection Eye Eye exam: Present normal appearance, PERRL and EOMI ENT ENT exam: Present normal exam, normal oropharynx and mucous membranes moist Neck Neck exam: Present normal inspection, full ROM and trachea midline Chest Chest inspection: Present normal inspection and symmetric chest wall rise Respiratory Respiratory exam: Present other (Wheezing bilaterally ) Cardiovascular Cardiovascular exam: Present regular rate, normal rhythm and normal heart sounds Abdominal Exam Abdominal exam: Present soft; Absent distention, tenderness or guarding Extremities Exam Extremities exam: Present normal inspection, full ROM and other (Intact radial pulses bilaterally, no lower extremity edema ) Neurological Exam Neurological exam: Present alert, oriented X3, CN II-XII intact and other (No focal neurodeficits) Psychiatric Psychiatric exam: Present normal affect and normal mood Skin Skin exam: Present warm, dry, intact and normal color Course Quality Measures none Orders Category Date Time Status EKG (ED ONLY) *Do not use* NOW Care 08/14/25 10:23 Completed Insert IV NOW Care 08/14/25 10:58 Completed CXR [XR chest 1V] Stat Exams 08/14/25 10:46 Completed EKG (ED Only) Stat Exams 08/14/25 10:23 Ordered CBC Stat Lab 08/14/25 10:50 Completed CMP [Comprehensive Metabolic Panel] Stat Lab 08/14/25 10:50 Completed INR [Prothrombin Time with INR] Stat Lab 08/14/25 10:50 Completed PTT [Partial Thromboplastin Time] Stat Lab 08/14/25 10:50 Completed Troponin I Stat Lab 08/14/25 10:50 Completed Troponin I Stat Lab 08/14/25 14:27 Completed Albuterol/Ipratr Rt Parisa [Duoneb Rt Parisa] Med 08/14/25 10:47 Discontinued 3 ml INH X1 ONE Aspirin Med 08/14/25 10:46 Discontinued 325 mg PO X1 ONE Aspirin [Ecotrin] Med 08/14/25 13:00 Discontinued 81 mg PO X1 STA Nitroglycerin [Nitrostat 1/150] Med 08/14/25 10:47 Discontinued 0.4 mg SL Q5MIN PRN Vital Signs Vital signs: Vital Signs Temperature 98 F 08/14/25 10:35 Pulse Rate 69 08/14/25 10:35 Respiratory Rate 24 H 08/14/25 10:35 Blood Pressure 107/72 08/14/25 10:35 Pulse Oximetry (%) 93 L 08/14/25 10:35 Oxygen Delivery Method Room Air 08/14/25 10:35 Pulse ox is 93% on room air which is borderline low. Chest Pain MDM Narrative MDM Narrative:: IVanessa, am scribing for and in the presence of Dr. Murray. Patient is a 60-year-old male is in the emerged from with concerns for chest pain and shortness of breath. Vital signs and exam as listed. Concern for ACS arrhythmia electrolyte abnormality viral syndrome pneumonia COPD exacerbation among others. Ordered labs EKG chest x-ray breathing treatment aspirin as well as sublingual nitroglycerin. Will consult patient's phosphoric acid operator. Labs w/o acute hematologic or metabolic abnormality troponin not elevated on 2 separate assessments. Chest x-ray without evidence of acute cardiopulmonary abnormalities. EKG performed today, sinus rhythm, normal intervals, nonspecific T wave changes, no cardiac alert. 1520: I spoke with patients phosphoric acid operator Dr. Cervantes. Discussed patients PMHx, HPI, ED course, exam findings, labs, and radiology results. States patient can follow up with him on an outpatient basis, no indication for admission. Will DC home. Updated patient, patient in agreement, feels better. Patient data External records reviewed:: [facility] previous records (I reviewed ED visit on 08/06/2025 for chest pain ) Clinical information provided by:: patient Social determinants that could affect healthcare access:: none Patient has the following chronic illnesses:: hypertension, diabetes, hyperlipidemia, recurring chest pain, s/p left heart catheterization with stent placement (07/28/2025) How is presenting disease/condition affected by chronic disease/condition?: exacerbated by Evaluation data The following diagnostics were reviewed and interpreted by me:: lab results, radiology exam(s) and EKG tracing(s) (EKG @ 10:28, interpreted by me, normal sinus rhythm, rate 62, no STEMI. ) Lab and/or radiology exams considered but not ordered:: None Interpretation Summary: Ordering Physician: Georgiana Murray MD Date of Service: 08/14/25 Procedure(s): XR chest 1V Accession Number(s): [id number] cc: Farrukh Iyer MD; Georgiana Murray MD~ EXAMINATION: AP chest single view TECHNIQUE: AP portable upright chest single view Date and time: August 14, 2025, 1112 hours, comparison July 27, 2025 INDICATIONS: Chest pain today. FINDINGS: Normal heart size Mild prominent central pulmonary vasculature. No lobar pneumonia or pulmonary edema Moderate osteopenia IMPRESSION: Mild prominence central pulmonary vasculature, clinical correlation advised Dictated By: Farrukh Iyer MD Signed By: <Electronically signed by Farrukh Iyer MD in OV> 08/14/25 1140 Medications / Prescriptions Medications or Prescriptions considered but not ordered:: None Medication administrations:: Medication Administration History Discontinued Medications Albuterol/Ipratropium (Albuterol/Ipratropium (Duoneb) Rt Parisa 3 Ml Nebu) 3 ml INH X1 ONE Stop: 08/14/25 10:48 Last Admin: 08/14/25 11:06 Dose: 3 ml Documented By: JOHN PAUL Aspirin (Aspirin 325 Mg Tablet) 325 mg PO X1 ONE Stop: 08/14/25 10:47 Last Admin: 08/14/25 13:00 Dose: Not Given Documented By: BRANDEN Non-Admin Reason: Cancelled by Provider Aspirin (Aspirin Ec 81 Mg Tabec) 81 mg PO X1 STA Stop: 08/14/25 13:01 Last Admin: 08/14/25 13:22 Dose: 81 mg Documented By: BRANDEN Nitroglycerin (Nitroglycerin 0.4 Mg Subl Btl #25) 0.4 mg SL Q5MIN PRN PRN Reason: CHEST PAIN Last Admin: 08/14/25 12:20 Dose: 0.4 mg Documented By: DB Comments: PT C/O OF 02/28 LEFT SIDE CHEST PAIN Admin: 08/14/25 10:59 Dose: 0.4 mg Documented By: DB See above Consultations Consultation(s) initiated? (list below): Yes Consultation #1 (Physician, Specialty, Details): See MDM Diagnosis Chest Pain Differential Diagnosis: stable angina, unstable angina pectoris, atypical chest pain, st elevation myocardial infarction, costochondritis, chest pain and biliary colic Most likely diagnosis given after review of the tests above:: Chest pain Admission Indicated Admission indicated?: not indicated Explain why admission is indicated or not indicated:: With no condition needing emergent intervention, there was no indication for admission. Admission Request Was there a request for admission?: No Disposition Plan Disposition Plan: Discharge Discharge Attestation Discharge Attestation: The patient and all family members were given an opportunity to ask questions and understood the discharge instructions. Discharge instructions specifically effects, indications for sooner follow up or return to the emergency department, and the expected course of current diagnosis. Patient condition: Stable Discharge Plan Plan Patient Disposition: HOME (Self Care) Prescriptions/Referrals Prescriptions/Med Rec: No Action metformin [Glucophage] 1,000 MG tablet 1,000 mg PO BID Qty: 0 magnesium citrate [Citrate of Magnesia] Solution 300 ml PO QDAY PRN (Reason: constipation) Qty: 296 0RF losartan 50 mg tablet 50 mg PO QDAY Patient Comments: TAKE ONE TABLET BY MOUTH EVERY DAY FOR BLOOD PRESSURE hydrocodone-acetaminophen 10-325 mg tablet 1 tab PO TID PRN (Reason: Pain) Patient Comments: TAKE ONE TABLET BY MOUTH THREE TIMES DAILY NEEDED FOR PAIN omeprazole 40 mg capsule,delayed release(DR/EC) 40 mg PO QDAY Patient Comments: TAKE ONE CAPSULE BY MOUTH EVERY MORNING 30 MINUTES BEFORE BREAKFAST GASTRIC ACIDITY AND HEARTBURN albuterol sulfate 90 mcg/actuation HFA aerosol inhaler 2 puff INHALATION Q4H PRN (Reason: Shortness Of Breath Or Wheezing) Patient Comments: INHALE TWO PUFFS BY MOUTH EVERY 4 HOURS NEEDED FOR BREATHING AND SHORTNESS OF BREATH Januvia 100 mg tablet 100 mg PO QDAY Patient Comments: TAKE ONE TABLET BY MOUTH EVERY DAY FOR DIABETES Jardiance 25 mg tablet 25 mg PO QDAY Patient Comments: TAKE ONE TABLET BY MOUTH EVERY DAY FOR DIABETES aspirin 81 mg Tablet,Delayed Release (Dr/Ec) 81 mg PO QDAY 30 Days Qty: 30 2RF clopidogrel 75 mg Tablet 75 mg PO QDAY 30 Days Qty: 30 2RF metoprolol succinate 25 mg Tablet Extended Release 24 Hr 25 mg PO QDAY 30 Days Qty: 30 2RF gemfibrozil 600 mg tablet 600 mg PO QDAY 30 Days Qty: 30 0RF Referrals: Joby Lewis FNP [Primary Care Provider] - In 1 week Problem List Clinical Impression: Chest pain Patient/Caregiver Discharge Instructions Education Materials: ED Chest Pain, Uncertain Cause Additional Instructions: Your labs today do not identify any acute abnormalities, your cardiac enzyme which is your troponin was not elevated on 2 separate assessments. Your EKG did not identify any evidence that you are having a heart attack or an arrhythmia today. Your chest x-ray was normal. I did discuss her case with your phosphoric acid operator Dr. Cervantes. He said that your stent is in great condition, and there is no need for admission at this time. States that you can follow-up with him in clinic. Print Language: Telugu Stand Alone Forms: Monica Award Info., Patient Portal Info Letter
--- NOTE | 2025-08-14 10:46 | XR_ITS ---
EXAMINATION: AP chest single view TECHNIQUE: AP portable upright chest single view Date and time: August 14, 2025, 1112 hours, comparison July 27, 2025 INDICATIONS: Chest pain today. FINDINGS: Normal heart size Mild prominent central pulmonary vasculature. No lobar pneumonia or pulmonary edema Moderate osteopenia IMPRESSION: Mild prominence central pulmonary vasculature, clinical correlation advised
[2025-08-14] MEDS: NITROGLYCERIN 0.4 MG SUBL BTL #25 SL ×2 (10:59→12:20)
[2025-08-14] MEDS: ALBUTEROL/IPRATROPIUM (Duoneb) RT SOL 3 ML NEBU INH (11:06)
[2025-08-14 11:16] LABS: Basophils # (Auto) 0.1 Thou/mm3 (0.0-0.2); Basophils % (Auto) 1 % (0-2.5); Eosinophils # (Auto) 0.3 Thou/mm3 (0.0-0.5); Eosinophils % (Auto) 4 % (0-10); Hematocrit 47.5 % (41.0-53.0); Hemoglobin 17.0 g/dL (13.5-16.0); Immature Granulocytes Auto 0.02 Thou/mm3 (0.00-0.00); Lymphocytes # (Auto) 1.9 Thou/mm3 (1.0-4.8); Lymphocytes % (Auto) 23 % (10-50); Mean Corpuscular HGB Conc 35.8 g/dl (31.0-37.0); Mean Corpuscular Hemoglobin 30.9 pg (25.0-35.0); Mean Corpuscular Volume 86 fL (80-100); Monocytes # (Auto) 0.4 Thou/mm3 (0.0-0.8); Monocytes % (Auto) 4 % (0-12); Neutrophils # (Auto) 5.7 Thou/mm3 (1.8-7.7); Neutrophils % (Auto) 69 % (37-80); Nucleated Red Blood Cell # 0.00 Thou/mm3 (0.00-0.00); Nucleated Red Blood Cell % 0 /100 WBC (0); Platelet Count 247 Thou/mm3 (140-440); RDW Standard Deviation 40.8 fL (35.1-43.9); Red Blood Count 5.50 Miln/mm3 (4.50-5.90); White Blood Count 8.3 Thou/mm3 (3.8-10.6)
[2025-08-14 11:26] LABS: INR 1.0 (0.9-1.3); Partial Thromboplastin Time 27.6 Seconds (22.0-36.0); Prothrombin Time 10.3 Seconds (9.0-12.2)
[2025-08-14 11:34] LABS: Alanine Aminotransferase 30 U/L (10-49); Albumin, Serum 4.8 gm/dL (3.4-4.8); Albumin/Globulin Ratio 2.0 (1.2-2.2); Alkaline Phosphatase 68 U/L (46-116); Anion Gap 9 (7-16); Aspartate Amino Transferase 17 U/L (0-34); BUN/Creatinine Ratio 17 Ratio (12-20); Bilirubin,Total 0.5 mg/dL (0.3-1.2); Blood Urea Nitrogen 17 mg/dL (9-23); Calcium 9.2 mg/dL (8.3-10.6); Calcium (Corrected) 9.2 mg/dL (8.5-10.1); Carbon Dioxide 25.5 mMol/L (20.0-31.0); Chloride 106 mMol/L (98-107); Creatinine (Component) 1.0 mg/dL (0.6-1.3); Estimated Creatinine Clearance 95.4 mL/min (>60); Globulin 2.4 gm/dL (2.3-3.5); Glucose 263 mg/dL (74-106); Osmolality,Calculated 289 (275-295); Potassium 4.2 mMol/L (3.4-5.1); Sodium 140 mMol/L (136-145); Total Protein 7.2 gm/dL (5.7-8.2); Troponin I < 0.020 ng/mL (0.0-0.045); eGFR > 60 See Note
[2025-08-14] MEDS: ASPIRIN EC 81 MG TABEC PO (13:22)
[2025-08-14 14:56] LABS: Troponin I < 0.020 ng/mL (0.0-0.045)
== END 2025-08-14 15:34 | disposition home or self-care (01) ==
PROVIDERS: Emergency Provider Emergency Medicine
DX: R07.89 Other chest pain (principal); I10 Essential (primary) hypertension; I25.2 Old myocardial infarction; E78.00 Pure hypercholesterolemia, unspecified; F17.210 Nicotine dependence, cigarettes, uncomplicated; Z95.5 Presence of coronary angioplasty implant and graft
CPT/HCPCS: 36415; 71045; 80053; 84484; 85025; 85610; 85730; 93005; 94640; 99283; A9270

== ENCOUNTER 2025-09-16 14:00 | Emergency (ER) | payer MEDICAID, SELFPAY ==
[2025-09-16 14:01] VITALS: BMI 33.5
--- NOTE | 2025-09-16 14:04 | EKG_ITS ---
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
[2025-09-16 14:13] VITALS: BP 113/79; PULSE 80; RESP 20; TEMP 36.6; O2SAT 96
--- NOTE | 2025-09-16 14:20 | XR_ITS ---
EXAMINATION: PA chest single view Technique when upright PA chest single view Date and time: September 16, 2025, 1423 hours, comparison August 14, 2025 INDICATION: Chest pain dizziness beginning last night. FINDINGS: Normal heart size No pneumonia or pulmonary edema. Moderate osteopenia IMPRESSION: No active disease
--- NOTE | 2025-09-16 14:21 | PD.EDRME ---
[facility] Arrival date/time: 09/16/25 14:00 This is a 60-year-old male that comes into the emergency room with complaints of chest pain and dizziness that started last night. Patient states it woke him up from his sleep. Patient reports that he took some nitroglycerin and the pain eased up a little bit. Patient states he also had an episode of chills no fever. Patient denies nausea, vomiting, diarrhea, abdominal pain. Patient denies cough runny nose. 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 Cervantes. Patient also has a history of high blood pressure, hyperlipidemia, and diabetes. Patient is a daily smoker and also smokes marijuana at night to sleep. I have greeted and performed a focused initial assessment of this patient. Initial appropriate labs ordered at this time. A comprehensive ED assessment and evaluation of the patient and analysis of all test and completion of medical decision making process will be conducted by additional ED provider. Chief Complaint: Chest Pain Time Seen by Provider: 09/16/25 14:15 Vital signs: Vital Signs Temperature 97.9 F 09/16/25 14:13 Pulse Rate 80 09/16/25 14:13 Respiratory Rate 20 09/16/25 14:13 Blood Pressure 113/79 09/16/25 14:13 Pulse Oximetry (%) 96 09/16/25 14:13 Oxygen Delivery Method Room Air 09/16/25 14:13 Exam: Alert and oriented, breathing even and unlabored, skin warm and dry Clinical Impression: Chest pain
[2025-09-16] MEDS: ASPIRIN 81 MG CHEW PO (14:43)
[2025-09-16 14:44] VITALS: BP 113/79; PULSE 80
[2025-09-16] MEDS: NITROGLYCERIN 0.4 MG SUBL BTL #25 SL (14:44)
--- NOTE | 2025-09-16 14:50 | PC.NURSE ---
pt complains of left sided chest pain that started last night, pt placed on cardiac monitors. Pt states he had an [place] 2 months ago and a stent was placed by Dr. Cervantes
[2025-09-16 15:01] VITALS: BP 130/80; PULSE 70; RESP 14; O2SAT 92
[2025-09-16 15:28] LABS: Basophils # (Auto) 0.0 Thou/mm3 (0.0-0.2); Basophils % (Auto) 1 % (0-2.5); Eosinophils # (Auto) 0.2 Thou/mm3 (0.0-0.5); Eosinophils % (Auto) 3 % (0-10); Hematocrit 46.4 % (41.0-53.0); Hemoglobin 16.1 g/dL (13.5-16.0); Immature Granulocytes Auto 0.03 Thou/mm3 (0.00-0.00); Lymphocytes # (Auto) 1.8 Thou/mm3 (1.0-4.8); Lymphocytes % (Auto) 25 % (10-50); Mean Corpuscular HGB Conc 34.7 g/dl (31.0-37.0); Mean Corpuscular Hemoglobin 30.0 pg (25.0-35.0); Mean Corpuscular Volume 87 fL (80-100); Monocytes # (Auto) 0.4 Thou/mm3 (0.0-0.8); Monocytes % (Auto) 6 % (0-12); Neutrophils # (Auto) 4.7 Thou/mm3 (1.8-7.7); Neutrophils % (Auto) 65 % (37-80); Nucleated Red Blood Cell # 0.00 Thou/mm3 (0.00-0.00); Nucleated Red Blood Cell % 0 /100 WBC (0); Platelet Count 203 Thou/mm3 (140-440); RDW Standard Deviation 40.2 fL (35.1-43.9); Red Blood Count 5.36 Miln/mm3 (4.50-5.90); White Blood Count 7.3 Thou/mm3 (3.8-10.6)
[2025-09-16 15:32] LABS: Alanine Aminotransferase 23 U/L (10-49); Albumin, Serum 4.8 gm/dL (3.4-4.8); Albumin/Globulin Ratio 1.8 (1.2-2.2); Alkaline Phosphatase 73 U/L (46-116); Anion Gap 9 (7-16); Aspartate Amino Transferase 15 U/L (0-34); BUN/Creatinine Ratio 16 Ratio (12-20); Bilirubin,Total 0.4 mg/dL (0.3-1.2); Blood Urea Nitrogen 19 mg/dL (9-23); Calcium 9.4 mg/dL (8.3-10.6); Calcium (Corrected) 9.4 mg/dL (8.5-10.1); Carbon Dioxide 25.4 mMol/L (20.0-31.0); Chloride 105 mMol/L (98-107); Creatinine (Component) 1.2 mg/dL (0.6-1.3); Estimated Creatinine Clearance 81.1 mL/min (>60); Globulin 2.7 gm/dL (2.3-3.5); Glucose 205 mg/dL (74-106); Osmolality,Calculated 285 (275-295); Potassium 4.4 mMol/L (3.4-5.1); Sodium 139 mMol/L (136-145); Total Protein 7.5 gm/dL (5.7-8.2); Troponin I < 0.020 ng/mL (0.0-0.045); eGFR > 60 See Note
--- NOTE | 2025-09-16 15:52 | PD.EDCHEST ---
ED Chest Pain RME/HPI General Chief Complaint: Chest Pain Stated Complaint: CHEST PAIN SINCE LAST NIGHT, L ARM NUMBNESS Time Seen by Provider: 09/16/25 14:15 Arrival date/time: 09/16/25 14:00 Limitations: no limitations RME / HPI RME / HPI narrative: 09/16/25 14:00 This is a 60-year-old male that comes into the emergency room with complaints of chest pain and dizziness that started last night. Patient states it woke him up from his sleep. Patient reports that he took some nitroglycerin and the pain eased up a little bit. Patient states he also had an episode of chills no fever. Patient denies nausea, vomiting, diarrhea, abdominal pain. Patient denies cough runny nose. Patient does have a history of's coronary artery disease with stents, patient reports that his research neuropsychologist is Dr. Cervantes. Patient also has a history of high blood pressure, hyperlipidemia, and diabetes. Patient is a daily smoker and also smokes marijuana at night to sleep. I have greeted and performed a focused initial assessment of this patient. Initial appropriate labs ordered at this time. A comprehensive ED assessment and evaluation of the patient and analysis of all test and completion of medical decision making process will be conducted by additional ED provider. DR. UCHE ROBERTS ED EVALUATION: 60-year-old male presents to the Emergency Department with complaint of chest pain since last night. He is accompanied by his . He reports the pain began last night, took a hot shower which temporarily helped, then after sitting in a chair the pain worsened and he felt palpitations. He took two nitroglycerin tablets this morning. He is using nicotine patches to quit smoking. Past medical history includes diabetes mellitus. No other symptoms reported. Related Data Home Medications ?Medication ?Instructions ?Recorded ?Confirmed metformin 1,000 mg tablet 1,000 mg PO BID #0 tabs 06/08/16 05/05/23 (Glucophage) albuterol sulfate 90 mcg/actuation 2 puff inhalation Q4H PRN 05/05/23 05/05/23 aerosol inhaler Shortness Of Breath Or Wheezing empagliflozin 25 mg tablet 25 mg PO QDAY 05/05/23 05/05/23 (Jardiance) hydrocodone 10 mg-acetaminophen 1 tab PO TID PRN Pain 05/05/23 05/05/23 325 mg tablet losartan 50 mg tablet 50 mg PO QDAY 05/05/23 05/05/23 omeprazole 40 mg capsule,delayed 40 mg PO QDAY 05/05/23 05/05/23 release sitagliptin phosphate 100 mg 100 mg PO QDAY 05/05/23 05/05/23 tablet (Januvia) Previous Rx's ?Medication ?Instructions ?Recorded magnesium citrate (Citrate of 300 ml PO QDAY PRN constipation 05/14/25 Magnesia oral) #296 mL aspirin 81 mg tablet,delayed 81 mg PO QDAY 30 days #30 tabs 07/28/25 release clopidogrel 75 mg tablet 75 mg PO QDAY 30 days #30 tabs 07/28/25 metoprolol succinate 25 mg 25 mg PO QDAY 30 days #30 tabs 07/28/25 tablet,extended release 24 hr Allergies Allergy/AdvReac Type Severity Reaction Status Date / Time Penicillins Allergy Severe Hives Verified 09/16/25 14:04 Review of Systems Review of Systems Systems Reviewed: All systems reviewed, normal except as documented Past Medical History Past Medical History CARDIAC: Positive Cardiac Disorders, Myocardial Infarction, Cardiac Arrhythmia, Angina, Coronary Artery Disease, Hypercholesterolemia and Hypertension GASTROINTESTINAL: Positive Gastrointestinal Disorders and Gastroesophageal Reflux Disease MUSCULOSKELETAL: Positive Musculoskeletal Disorders, Arthritis and Degenerative Joint Disease ENT: Positive 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 Cervantes) and Abdominal Surgery Social History SMOKING STATUS: Heavy (> 1 pack/day) SUBSTANCE USE: marijuana ED Exam General Limitations: Present no limitations General appearance: Present alert and in no apparent distress Head Head exam: Present atraumatic, normocephalic and normal inspection Eye Eye exam: Present normal appearance, PERRL and EOMI ENT ENT exam: Present normal exam, normal oropharynx and mucous membranes moist Neck Neck exam: Present normal inspection, full ROM and trachea midline Chest Chest inspection: Present normal inspection and symmetric chest wall rise Respiratory Respiratory exam: Present normal lung sounds bilaterally Cardiovascular Cardiovascular exam: Present regular rate, normal rhythm and normal heart sounds Abdominal Exam Abdominal exam: Present soft and normal bowel sounds Extremities Exam Extremities exam: Present normal inspection and full ROM Back Exam Back exam: Present normal inspection and full ROM Neurological Exam Neurological exam: Present alert, oriented X3 and CN II-XII intact Psychiatric Psychiatric exam: Present normal affect and normal mood Skin Skin exam: Present warm, dry, intact and normal color Course Quality Measures none Orders Category Date Time Status Electrical Tech/Project Manager STAT Care 09/16/25 15:52 Active Continuous Pulse Oximetry NOW Care 09/16/25 15:52 Active EKG (ED ONLY) *Do not use* NOW Care 09/16/25 14:04 Completed Insert IV STAT Care 09/16/25 15:52 Active EKG (ED Only) Stat Exams 09/16/25 14:04 Draft XR chest 1V Stat Exams 09/16/25 14:20 Completed BNP [B-Type Natriuretic Peptide] Stat Lab 09/16/25 15:00 Completed CBC Stat Lab 09/16/25 15:00 Completed Comprehensive Metabolic Panel Stat Lab 09/16/25 15:00 Completed Lipase Stat Lab 09/16/25 16:08 Completed Magnesium Stat Lab 09/16/25 16:08 Completed Partial Thromboplastin Time Stat Lab 09/16/25 16:08 Completed Prothrombin Time with INR Stat Lab 09/16/25 16:08 Completed Troponin I Stat Lab 09/16/25 15:00 Completed Troponin I Stat Lab 09/16/25 16:08 Completed Aspirin Chew Med 09/16/25 14:34 Discontinued 81 mg PO X1 ONE LORazepam [Ativan Inj] Med 09/16/25 15:57 Discontinued 0.5 mg IVP X1 ONE Morphine* Inj Med 09/16/25 15:52 Active 4 mg IVP Q30M PRN Nitroglycerin [Nitrostat 1/150] Med 09/16/25 14:34 Discontinued 0.4 mg SL X1 ONE Ondansetron Inj [Zofran Inj] Med 09/16/25 15:56 Discontinued 4 mg IVP X1 ONE Oxygen Delivery NOW RT 09/16/25 15:52 Active Vital Signs Vital signs: Vital Signs Temperature 97.9 F 09/16/25 14:13 Pulse Rate 80 09/16/25 14:13 Respiratory Rate 20 09/16/25 14:13 Blood Pressure 113/79 09/16/25 14:13 Pulse Oximetry (%) 96 09/16/25 14:13 Oxygen Delivery Method Room Air 09/16/25 14:13 Chest Pain MDM Narrative MDM Narrative:: I, Sandi Hawkins am scribing for and in the presence of Dr. Pinedo. 60-year-old male with chest pain since last night and palpitations, partial relief with nitroglycerin. Cardiac risk factors present. Workup initiated to evaluate for cardiac versus noncardiac causes. Differential diagnoses include ACS, arrhythmia, and musculoskeletal chest pain. 1720: Patient troponins are flat and will discharge him home. Patient data External records reviewed:: [facility] previous records Clinical information provided by:: patient and spouse Social determinants that could affect healthcare access:: other (specify) (smokes) Patient has the following chronic illnesses:: He is using nicotine patches to quit smoking. Past medical history includes diabetes mellitus. How is presenting disease/condition affected by chronic disease/condition?: exacerbated by Evaluation data The following diagnostics were reviewed and interpreted by me:: lab results, radiology exam(s) and EKG tracing(s) (My interpretation: EKG performed at 1411 hours, sinus rhythm, rate 75, normal intervals, normal axis, no ectopy, no signs of acute ischemia) Lab and/or radiology exams considered but not ordered:: none Interpretation Summary: See MDM narrative above. RADIOLOGY Procedure(s): XR chest 1V Accession Number(s): [id number] cc: Farrukh Iyer MD; Rima Tirado NP~ EXAMINATION: PA chest single view Technique when upright PA chest single view Date and time: September 16, 2025, 1423 hours, comparison August 14, 2025 INDICATION: Chest pain dizziness beginning last night. FINDINGS: Normal heart size No pneumonia or pulmonary edema. Moderate osteopenia IMPRESSION: No active disease Dictated By: Farrukh Iyer MD Medications / Prescriptions Medications or Prescriptions considered but not ordered:: none Medication administrations:: Medication Administration History Morphine Sulfate (Morphine Sulf Inj 4 Mg/Ml Vial) 4 mg IVP Q30M PRN PRN Reason: PAIN Stop: 09/16/25 17:53 Discontinued Medications Aspirin (Aspirin 81 Mg Chew) 81 mg PO X1 ONE Stop: 09/16/25 14:35 Last Admin: 09/16/25 14:43 Dose: 81 mg Documented By: Lorazepam (Lorazepam 2 Mg/Ml Vial) 0.5 mg IVP X1 ONE Stop: 09/16/25 15:58 Last Admin: 09/16/25 16:17 Dose: 0.5 mg Documented By: DO Nitroglycerin (Nitroglycerin 0.4 Mg Subl Btl #25) 0.4 mg SL X1 ONE Stop: 09/16/25 14:35 Last Admin: 09/16/25 14:44 Dose: 0.4 meq Documented By: Ondansetron HCl (Ondansetron Inj 2 Mg/Ml Inj 2 Ml) 4 mg IVP X1 ONE; Protocol Stop: 09/16/25 15:57 Last Admin: 09/16/25 16:14 Dose: 4 mg Documented By: DO see above Consultations Consultation(s) initiated? (list below): No Diagnosis Chest Pain Differential Diagnosis: other (ACS, arrhythmia, and musculoskeletal chest pain) Most likely diagnosis given after review of the tests above:: Chest pain Admission Indicated Admission indicated?: not indicated Admission Request Was there a request for admission?: No Disposition Plan Disposition Plan: Discharge Discharge Attestation Discharge Attestation: The patient and all family members were given an opportunity to ask questions and understood the discharge instructions. Discharge instructions specifically effects, indications for sooner follow up or return to the emergency department, and the expected course of current diagnosis. Patient condition: Stable Discharge Plan Plan Patient Disposition: HOME (Self Care) Discharge Disposition comment: Stable for discharge home Patient condition on transfer: Stable Prescriptions/Referrals Prescriptions/Med Rec: No Action metformin [Glucophage] 1,000 MG tablet 1,000 mg PO BID Qty: 0 magnesium citrate [Citrate of Magnesia] Solution 300 ml PO QDAY PRN (Reason: constipation) Qty: 296 0RF losartan 50 mg tablet 50 mg PO QDAY Patient Comments: TAKE ONE TABLET BY MOUTH EVERY DAY FOR BLOOD PRESSURE hydrocodone-acetaminophen 10-325 mg tablet 1 tab PO TID PRN (Reason: Pain) Patient Comments: TAKE ONE TABLET BY MOUTH THREE TIMES DAILY NEEDED FOR PAIN omeprazole 40 mg capsule,delayed release(DR/EC) 40 mg PO QDAY Patient Comments: TAKE ONE CAPSULE BY MOUTH EVERY MORNING 30 MINUTES BEFORE BREAKFAST GASTRIC ACIDITY AND HEARTBURN albuterol sulfate 90 mcg/actuation HFA aerosol inhaler 2 puff INHALATION Q4H PRN (Reason: Shortness Of Breath Or Wheezing) Patient Comments: INHALE TWO PUFFS BY MOUTH EVERY 4 HOURS NEEDED FOR BREATHING AND SHORTNESS OF BREATH Januvia 100 mg tablet 100 mg PO QDAY Patient Comments: TAKE ONE TABLET BY MOUTH EVERY DAY FOR DIABETES Jardiance 25 mg tablet 25 mg PO QDAY Patient Comments: TAKE ONE TABLET BY MOUTH EVERY DAY FOR DIABETES aspirin 81 mg Tablet,Delayed Release (Dr/Ec) 81 mg PO QDAY 30 Days Qty: 30 2RF clopidogrel 75 mg Tablet 75 mg PO QDAY 30 Days Qty: 30 2RF metoprolol succinate 25 mg Tablet Extended Release 24 Hr 25 mg PO QDAY 30 Days Qty: 30 2RF Referrals: Adilia Cervantes MD [Physician, Cardiology] - In 1 week Problem List Clinical Impression: Chest pain Patient/Caregiver Discharge Instructions Discharge Activity: activity as tolerated Other Activity Instructions:: As tolerated Diet Instructions: No restrictions Education Materials: ED Chest Pain, Uncertain Cause Additional Instructions: Please return to the emergency department if you have any worsening or any further medical problems and we will help you. Otherwise you should follow-up with your primary care doctor within the next several days. Print Language: Cook Islander Stand Alone Forms: Monica Award Info., Patient Portal Info Letter
[2025-09-16 16:13] LABS: B-Type Natriuretic Peptide 23 pg/mL (0-100)
[2025-09-16] MEDS: ONDANSETRON INJ 2 MG/ML INJ 2 ML 4 MG IVP (16:14)
[2025-09-16] MEDS: LORazepam 2 MG/ML VIAL 0.5 MG IVP (16:17)
[2025-09-16 16:49] LABS: Lipase 30 U/L (12-53); Magnesium 2.2 mg/dL (1.6-2.6); Troponin I < 0.020 ng/mL (0.0-0.045)
[2025-09-16 16:52] LABS: INR 0.9 (0.9-1.3); Partial Thromboplastin Time 24.8 Seconds (22.0-36.0); Prothrombin Time 9.9 Seconds (9.0-12.2)
--- NOTE | 2025-09-16 17:26 | PC.NURSE ---
DR. IVEY AT BEDSIDE TALKING TO PATIENT
== END 2025-09-16 17:40 | disposition home or self-care (01) ==
PROVIDERS: Nurse Practitioner Family; Emergency Provider Emergency Medicine
DX: R07.9 Chest pain, unspecified (principal); I49.3 Ventricular premature depolarization; E78.00 Pure hypercholesterolemia, unspecified; I10 Essential (primary) hypertension; F17.290 Nicotine dependence, other tobacco product, uncomplicated
CPT/HCPCS: 36415; 71045; 80053; 83690; 83735; 83880; 84484; 85025; 85610; 85730; 93005; 96374; 96375; 99284; J2060; J2405; A9270